=== PATIENT | female | born 1945 | race Caucasian/White ===

== ENCOUNTER → 2018-08-16 | Outpatient (CLI) | payer MEDICARE ==
--- NOTE | 2018-08-16 16:15 | US ---
EXAMINATION TYPE: US kidneys/renal and bladder DATE OF EXAM: 08/16/2018 COMPARISON: NONE CLINICAL HISTORY: N28.9 Renal insufficiency. Abnormal labs EXAM MEASUREMENTS: Right Kidney: 11.5 x 5.2 x 5.0 cm Left Kidney: 11.1 x 6.3 x 4.9 cm Right Kidney: Appeared wnl Left Kidney: Multicystic with largest simple appearing cyst lower pole= 2.1 x 1.8 x 1.4 cm Bladder: wnl Bilateral Jets seen: Yes Incidental finding several small mobile shadowing gallstones on initial images There is no evidence for hydronephrosis at this point in time. No nephrolithiasis is seen. No jas s are identified. The urinary bladder is slightly lobulated. Bilateral ureteral jets are seen. IMPRESSION: No hydronephrosis is evident bilaterally.
== END | disposition home or self-care (01) ==
LOC: RADUSWWP 15:28
PROVIDERS: ATTEND Family Medicine
DX: N28.9 Disorder of kidney and ureter, unspecified (principal)
CPT/HCPCS: 76770

== ENCOUNTER 2019-12-31 20:14 | Inpatient (IN) | payer MEDICARE, OTHER ==
[2019-12-31] MEDS ORDERED: HYDROmorphone 1 MG/ML 1 ML SYRINGE IVP STA ×3 (20:21→21:31)
--- NOTE | 2019-12-31 20:21 | ED ---
Extremity Problem HPI - General Stated complaint: Fall, Hip Pain Time Seen by Provider: 12/31/19 20:15 Source: RN notes reviewed, old records reviewed - History of Present Illness Initial comments: This is a 74-year-old female presented by EMS for severe right lower Shorty pain. Patient popping snapping sound on her right side will moving a chair. Patient states she is unable to move after that event. Unable to move that ri ght lower extremity right leg. Patient's been by EMS he [place] give pain control patient still having severe right lower Shorty pain but no other injuries noted. Patient is on blood thinners. No history of orthopedic surgery or fracture MD Complaint: extremity pain (Right lower extremity) -: minutes(s) Location: right, lower extremity History of Same: No Radiation: proximal Severity scale (1-10): 10 Quality: sharp, constant Consistency: constant Improves with: nothing Worsens with: nothing Associated Symptoms: denies other symptoms - Related Data Home Medications Medication Instructions Recorded Confirmed Allopurinol [Zyloprim] 100 mg PO DAILY 12/31/19 12/31/19 Atenolol 200 mg PO DAILY 12/31/19 12/31/19 Ergocalciferol [Vitamin D2] 50,000 unit PO Q7D 12/31/19 12/31/19 HYDROcodone/APAP 5-325MG [[place] 1 tab PO Q8H 12/31/19 12/31/19 5-325] Lisinopril [Prinivil] 20 mg PO DAILY 12/31/19 12/31/19 glipiZIDE XL [Glucotrol Xl] 5 mg PO DAILY 12/31/19 12/31/19 predniSONE 10 mg PO DAILY 12/31/19 12/31/19 Allergies Allergy/AdvReac Type Severity Reaction Status Date / Time latex Allergy Rash/Hives Verified 12/31/19 21:57 Penicillins Allergy Rash/Hives Verified 12/31/19 21:57 warfarin [From Coumadin] Allergy Rash/Hives Verified 12/31/19 21:57 Review of Systems ROS Statement: Those systems with pertinent positive or pertinent negative responses have been documented in the HPI. ROS Other: All systems not noted in ROS Statement are negative. Past Medical History - Past Family History Brother(s) Family Medical History: Cancer Additional Family Medical History / Comment(s): 3x brother from cancer (2x brother esophageal cancer) Father Family Medical History: Myocardial Infarction ([place]) Additional Family Medical History / Comment(s): alcoholism General Exam - General Exam Comments Initial Comments: Significant deformity right lower extremity General appearance: alert, in no apparent distress Head exam: Present: atraumatic, normocephalic, normal inspection Eye exam: Present: normal appearance, PERRL, EOMI. Absent: scleral icterus, conjunctival injection, periorbital swelling ENT exam: Present: normal exam, mucous membranes moist Neck exam: Present: normal inspection. Absent: tenderness, meningismus, lymphadenopathy Respiratory exam: Present: normal lung sounds bilaterally. Absent: respiratory distress, wheezes, rales, rhonchi, stridor Cardiovascular Exam: Present: regular rate, normal rhythm, normal heart sounds. Absent: systolic murmur, diastolic murmur, rubs, gallop, clicks GI/Abdominal exam: Present: soft, normal bowel sounds. Absent: distended, tenderness, guarding, rebound, rigid Extremities exam: Present: normal inspection, full ROM, normal capillary refill. Absent: tenderness, pedal edema, joint swelling, calf tenderness Back exam: Present: normal inspection Neurological exam: Present: alert, oriented X3, CN II-XII intact Psychiatric exam: Present: normal affect, normal mood Skin exam: Present: warm, dry, intact, normal color. Absent: rash Course Vital Signs 12/31/19 12/31/19 12/31/19 20:16 21:52 22:31 Temperature 98 F Pulse Rate 66 53 L 56 L Respiratory 20 16 16 Rate Blood Pressure 219/90 206/88 239/90 O2 Sat by Pulse 98 100 100 Oximetry 12/31/19 22:42 Temperature Pulse Rate 64 Respiratory 16 Rate Blood Pressure 157/64 O2 Sat by Pulse 98 Oximetry - Reevaluation(s) Reevaluation #1: Medical record is reviewed Patient currently is adequate pain control - Consultations Consultation #1: Spoke with (Orthopedics okay for admission Procedures - Orthopedic Fracture Reduction Fracture #1 Consent Obtained: verbal consent Side: right Fracture Reduction Location: femur Technique: direct manipulation, traction/counter-traction Post-Reduction Neuro Exam: intact Post-Reduction Vascular Exam: intact Splint Applied: Yes Patient Tolerated Procedure: well Medical Decision Making - Medical Decision Making 74 female DF for evaluation of fall fall with hip fracture fracture splinted here in the ER good pulses, patient to be admitted for orthopedic evaluation and management - Lab Data Result diagrams: 01/01/20 10:34 01/01/20 10:34 Lab Results 12/31/19 12/31/19 12/31/19 Range/Units 21:52 21:52 21:52 WBC 14.5 H (3.8-10.6) k/uL RBC 5.12 (3.80-5.40) m/uL Hgb 12.0 (11.4-16.0) gm/dL Hct 39.8 (34.0-46.0) % MCV 77.7 L (80.0-100.0) fL MCH 23.5 L (25.0-35.0) pg MCHC 30.3 L (31.0-37.0) g/dL RDW 15.9 H (11.5-15.5) % Plt Count 353 (150-450) k/uL Neutrophils % 83 % Lymphocytes % 9 % Monocytes % 6 % Eosinophils % 1 % Basophils % 0 % Neutrophils # 12.0 H (1.3-7.7) k/uL Lymphocytes # 1.2 (1.0-4.8) k/uL Monocytes # 0.9 (0-1.0) k/uL Eosinophils # 0.1 (0-0.7) k/uL Basophils # 0.1 (0-0.2) k/uL Hypochromasia Moderate Microcytosis Slight PT 10.8 (9.0-12.0) sec INR 1.0 (<1.2) APTT 22.6 (22.0-30.0) sec Sodium 136 L (137-145) mmol/L Potassium 4.1 (3.5-5.1) mmol/L Chloride 100 (98-107) mmol/L Carbon Dioxide 27 (22-30) mmol/L Anion Gap 9 mmol/L BUN 17 (7-17) mg/dL Creatinine 0.68 (0.52-1.04) mg/dL Est GFR (CKD-EPI)AfAm >90 (>60 ml/min/1.73 sqM) Est GFR (CKD-EPI)NonAf 88 (>60 ml/min/1.73 sqM) Glucose 181 H (74-99) mg/dL Calcium 8.9 (8.4-10.2) mg/dL Phosphorus 4.5 (2.5-4.5) mg/dL Magnesium 1.5 L (1.6-2.3) mg/dL Total Bilirubin 0.5 (0.2-1.3) mg/dL AST 36 (14-36) U/L ALT 19 (4-34) U/L Alkaline Phosphatase 102 (38-126) U/L Troponin I (0.000-0.034) ng/mL Total Protein 6.2 L (6.3-8.2) g/dL Albumin 3.6 (3.5-5.0) g/dL 12/31/19 Range/Units 21:52 WBC (3.8-10.6) k/uL RBC (3.80-5.40) m/uL Hgb (11.4-16.0) gm/dL Hct (34.0-46.0) % MCV (80.0-100.0) fL MCH (25.0-35.0) pg MCHC (31.0-37.0) g/dL RDW (11.5-15.5) % Plt Count (150-450) k/uL Neutrophils % % Lymphocytes % % Monocytes % % Eosinophils % % Basophils % % Neutrophils # (1.3-7.7) k/uL Lymphocytes # (1.0-4.8) k/uL Monocytes # (0-1.0) k/uL Eosinophils # (0-0.7) k/uL Basophils # (0-0.2) k/uL Hypochromasia Microcytosis PT (9.0-12.0) sec INR (<1.2) APTT (22.0-30.0) sec Sodium (137-145) mmol/L Potassium (3.5-5.1) mmol/L Chloride (98-107) mmol/L Carbon Dioxide (22-30) mmol/L Anion Gap mmol/L BUN (7-17) mg/dL Creatinine (0.52-1.04) mg/dL Est GFR (CKD-EPI)AfAm (>60 ml/min/1.73 sqM) Est GFR (CKD-EPI)NonAf (>60 ml/min/1.73 sqM) Glucose (74-99) mg/dL Calcium (8.4-10.2) mg/dL Phosphorus (2.5-4.5) mg/dL Magnesium (1.6-2.3) mg/dL Total Bilirubin (0.2-1.3) mg/dL AST (14-36) U/L ALT (4-34) U/L Alkaline Phosphatase (38-126) U/L Troponin I 0.043 H* (0.000-0.034) ng/mL Total Protein (6.3-8.2) g/dL Albumin (3.5-5.0) g/dL - EKG Data -: EKG Interpreted by Me (EKG shows sinus rhythm of 60, VA 152, QRS 90, QTc 440) - Radiology Data Radiology results: report reviewed (Chest x-ray is negative x-rays right hip is positive for femoral fracture), image reviewed Disposition Clinical Impression: Fracture of hip, Right femoral fracture, Fall Disposition: ADMITTED IP TO THIS [facility] Condition: Good Is patient prescribed a controlled substance at d/c from ED?: No
[2019-12-31] MEDS ORDERED: ONDANSETRON 4 MG/2 ML VIAL IVP STA (20:30)
--- NOTE | 2019-12-31 20:54 | XR ---
EXAMINATION TYPE: XR Hip RT and AP Pelvis DATE OF EXAM: 12/31/2019 COMPARISON: NONE HISTORY: Hip pain TECHNIQUE: 3 views FINDINGS: There is acute subtrochanteric fracture of the right femur with angulation 45 degrees. Ther e is no dislocation. The acetabula appear intact. Pelvic ring is intact. IMPRESSION: Acute subtrochanteric fracture right femur.
--- NOTE | 2019-12-31 20:55 | XR ---
EXAMINATION TYPE: XR chest 1V DATE OF EXAM: 12/31/2019 COMPARISON: NONE HISTORY: Preop TECHNIQUE: Single view FINDINGS: Heart appears enlarged. There is coarsening of the interstitial lung markings. There are bi lateral nodular densities over the lower lung castañeda. Thoracic aorta is atheromatous. There is no ple ural effusion. IMPRESSION: Cardiomegaly. No obvious heart failure. Mild nodular interstitial pulmonary infiltrates a re nonspecific.
[2019-12-31] MEDS ORDERED: SODIUM CHLORIDE 0.9% 1,000 ML IV STA ×2 (21:37)
[2019-12-31 22:10] LABS: Basophils # (A) 0.1 k/uL (0-0.2); Basophils % (A) 0 %; Eosinophils # (A) 0.1 k/uL (0-0.7); Eosinophils % (A) 1 %; HCT 39.8 % (34.0-46.0); Hypochromasia Moderate; Lymphocytes # (A) 1.2 k/uL (1.0-4.8); Lymphocytes % (A) 9 %; MCH 23.5 pg (25.0-35.0); MCHC 30.3 g/dL (31.0-37.0); MCV 77.7 fL (80.0-100.0); Mean Platelet Volume 7.7; Microcytosis Slight; Monocytes # (A) 0.9 k/uL (0-1.0); Monocytes % (A) 6 %; Neutrophils % (A) 83 %; Platelet Count 353 k/uL (150-450); RBC 5.12 m/uL (3.80-5.40); RDW 15.9 % (11.5-15.5); WBC 14.5 k/uL (3.8-10.6)
[2019-12-31 22:11] LABS: Partial Thromboplastin Time 22.6 sec (22.0-30.0); Prothrombin Time 10.8 sec (9.0-12.0)
[2019-12-31 22:18] LABS: ALT 19 U/L (4-34); AST 36 U/L (14-36); African American GFR (CKD) >90 (>60 ml/min/1.73 sqM); Albumin 3.6 g/dL (3.5-5.0); Alkaline Phosphatase 102 U/L (38-126); Anion Gap 9 mmol/L; Blood Urea Nitrogen 17 mg/dL (7-17); Calcium 8.9 mg/dL (8.4-10.2); Carbon Dioxide 27 mmol/L (22-30); Chloride 100 mmol/L (98-107); Glucose 181 mg/dL (74-99); Magnesium 1.5 mg/dL (1.6-2.3); Non-African American GFR(CKD) 88 (>60 ml/min/1.73 sqM); Phosphorus 4.5 mg/dL (2.5-4.5); Potassium 4.1 mmol/L (3.5-5.1); Sodium 136 mmol/L (137-145); Total Bilirubin 0.5 mg/dL (0.2-1.3); Total Protein 6.2 g/dL (6.3-8.2)
[2019-12-31] MEDS ORDERED: LABETALOL 5 MG/ML VIAL MDV IVP STA (22:20)
[2019-12-31] MEDS ORDERED: SODIUM CHLORIDE 0.9% 1,000 ML IV ONE (22:20)
[2019-12-31] MEDS ORDERED: LORazepam 2 MG/ML INJ IV STA (22:23)
[2019-12-31] MEDS ORDERED: PROMETHAZINE INJ 25 MG in SODIUM CHLORIDE 0.9% 50 ML IVPB PRN (22:24)
[2020-01-01] MEDS: METOPROLOL TARTRATE 50 MG TAB PO SCH ×4 (00:45→21:51)
[2020-01-01] MEDS: LISINOPRIL-HCTZ 10-12.5 MG 1 EACH TAB PO SCH ×3 (00:59→20:10)
[2020-01-01] MEDS: HYDROmorphone 1 MG/ML 1 ML SYRINGE IVP PRN ×5 (02:41→20:04)
--- NOTE | 2020-01-01 09:09 | P.HPOR ---
History of Present Illness H&P Date: 01/01/20 Chief Complaint: Right leg pain This is a 74-year-old female who presented to the emergency department yesterday after falling into a chair and twisting her leg. She states that she was quite dizzy yesterday after taking her atenolol. She states that her medication made her dizzy. She sat down into a chair when she became dizzy and states that she twisted her leg, feeling a pop in her thigh. She was unable to ambulate after the incident. She called the daughter who called EMS. On exam and x-ray in the emergency department she is found to have a subtrochanteric fracture of the right femur. She is admitted to our service for surgical intervention and care. Review of Systems Lightheaded, dizziness Gastrointestinal: Reports nausea, Reports vomiting Past Medical History Past Medical History: Diabetes Mellitus, Hypertension, Rheumatoid Arthritis ([place]) Additional Past Medical History / Comment(s): pre diabetes, recently has had episodes of dizziness and fuzzy vision, 2012 had septic shock r/t bladder/kidney infection, varicose veins History of Any Multi-Drug Resistant Organisms: None Reported Past Surgical History: Appendectomy Past Anesthesia/Blood Transfusion Reactions: No Reported Reaction Past Psychological History: No Psychological Hx Reported Smoking Status: Former smoker Past Alcohol Use History: None Reported Past Drug Use History: None Reported - Past Family History Brother(s) Family Medical History: Cancer Additional Family Medical History / Comment(s): 3x brother from cancer (2x brother esophageal cancer) Father Family Medical History: Myocardial Infarction ([place]) Additional Family Medical History / Comment(s): alcoholism Medications and Allergies Home Medications Medication Instructions Recorded Confirmed Type Allopurinol [Zyloprim] 100 mg PO DAILY 12/31/19 12/31/19 History Atenolol 200 mg PO DAILY 12/31/19 12/31/19 History Ergocalciferol [Vitamin D2] 50,000 unit PO Q7D 12/31/19 12/31/19 History HYDROcodone/APAP 5-325MG [[place] 1 tab PO Q8H 12/31/19 12/31/19 History 5-325] Lisinopril [Prinivil] 20 mg PO DAILY 12/31/19 12/31/19 History glipiZIDE XL [Glucotrol Xl] 5 mg PO DAILY 12/31/19 12/31/19 History predniSONE 10 mg PO DAILY 12/31/19 12/31/19 History Allergies Allergy/AdvReac Type Severity Reaction Status Date / Time latex Allergy Rash/Hives Verified 12/31/19 21:57 Penicillins Allergy Rash/Hives Verified 12/31/19 21:57 warfarin [From Coumadin] Allergy Rash/Hives Verified 12/31/19 21:57 Physical Examination This is a 74-year-old female in no acute distress. She is alert and oriented at this time. Exam of the head neck reveal no obvious deformity. She has fairly good cervical spine motion without difficulty or pain. Exam the upper extr emities is unremarkable. She has normal motion to her upper extremities without pain. Exam of the lower extremities reveals a knee immobilizer in place to the right leg. She has full foot and ankle motion. Pedal pulse is +2/4. Neurovascular status to the lower extremities intact. Results X-rays of the right hip and femur reveal a displaced long oblique fracture to the subtrochanteric region of the right femur. No other fractures identified. - Labs Labs: Abnormal Lab Results - Last 24 Hours (Table) 12/31/19 12/31/19 12/31/19 Range/Units 21:52 21:52 21:52 WBC 14.5 H (3.8-10.6) k/uL MCV 77.7 L (80.0-100.0) fL MCH 23.5 L (25.0-35.0) pg MCHC 30.3 L (31.0-37.0) g/dL RDW 15.9 H (11.5-15.5) % Neutrophils # 12.0 H (1.3-7.7) k/uL Sodium 136 L (137-145) mmol/L Glucose 181 H (74-99) mg/dL Magnesium 1.5 L (1.6-2.3) mg/dL Troponin I 0.043 H* (0.000-0.034) ng/mL Total Protein 6.2 L (6.3-8.2) g/dL H & H 12/31/19 Range/Units 21:52 Hgb 12.0 (11.4-16.0) gm/dL Hct 39.8 (34.0-46.0) % Coagulation 12/31/19 Range/Units 21:52 INR 1.0 (<1.2) Result Diagrams: 12/31/19 21:52 12/31/19 21:52 Assessment and Plan (1) Subtrochanteric fracture of right femur Current Visit: Yes Status: Acute Code(s): S72.21XA - DISPLACED SUBT ROCHANTERIC FRACTURE OF RIGHT FEMUR, INIT SNOMED Code(s): 424413903 (2) Fracture of hip Current Visit: Yes Status: Acute Code(s): S72.009A - FRACTURE OF UNSP PART OF NECK OF UNSP FEMUR, INIT SNOMED Code(s): 211276068 (3) Right femoral fracture Current Visit: Yes Status: Acute Code(s): S72.91XA - UNSP FRACTURE OF RIGHT FEMUR, INIT FOR CLOS FX SNOMED Code(s): 34348449 (4) Dizziness, nonspecific Current Visit: Yes Status: Acute Code(s): R42 - DIZZINESS AND GIDDINESS SNOMED Code(s): 227654227 Plan: The clinical and x-ray findings are discussed with the patient. It is recommended she undergo closed reduction with insertion of long intertrochanteric nail of the right femur. The procedures discussed with the patient detail. After discussion and consideration the patient elects to proceed with surgery. We are awaiting presurgical clearance by internal medicine. We're planning surgery for tomorrow if cleared medically. Patient may possibly need inpatient rehab postoperatively.
[2020-01-01 10:51] LABS: Basophils % (A) 0 %; Eosinophils % (A) 0 %; HCT 36.1 % (34.0-46.0); HGB 10.5 gm/dL (11.4-16.0); Hypochromasia Marked; Lymphocytes # (A) 1.3 k/uL (1.0-4.8); Lymphocytes % (A) 10 %; MCH 23.2 pg (25.0-35.0); MCHC 29.1 g/dL (31.0-37.0); MCV 79.6 fL (80.0-100.0); Mean Platelet Volume 7.3; Monocytes # (A) 0.7 k/uL (0-1.0); Monocytes % (A) 5 %; Neutrophils # (A) 10.9 k/uL (1.3-7.7); Neutrophils % (A) 83 %; Platelet Count 325 k/uL (150-450); RBC 4.54 m/uL (3.80-5.40); RDW 15.3 % (11.5-15.5); WBC 13.1 k/uL (3.8-10.6)
[2020-01-01] MEDS: cloNIDine 0.1 MG/24HR PATCH TRANSDERM SCH (10:59)
[2020-01-01 11:04] LABS: ALT 19 U/L (4-34); AST 35 U/L (14-36); African American GFR (CKD) >90 (>60 ml/min/1.73 sqM); Albumin 3.6 g/dL (3.5-5.0); Alkaline Phosphatase 87 U/L (38-126); Anion Gap 8 mmol/L; Blood Urea Nitrogen 16 mg/dL (7-17); Calcium 9.4 mg/dL (8.4-10.2); Carbon Dioxide 31 mmol/L (22-30); Chloride 97 mmol/L (98-107); Glucose 180 mg/dL (74-99); Non-African American GFR(CKD) 87 (>60 ml/min/1.73 sqM); Potassium 4.6 mmol/L (3.5-5.1); Sodium 136 mmol/L (137-145); Total Bilirubin 0.4 mg/dL (0.2-1.3); Total Protein 6.3 g/dL (6.3-8.2)
[2020-01-01] MEDS: ASPIRIN 300 MG SUPP RECTAL STA ×2 (11:27→11:29)
[2020-01-01] MEDS ORDERED: POTAS-SOD-PHOS 278-164-250 MG 1 EACH PACKET PO SCH (16:00)
--- NOTE | 2020-01-01 16:02 | P.CONS ---
History of Present Illness - Reason for Consult Consult date: 01/01/20 Medical management Requesting physician: Phuc Gillette - Chief Complaint Right hip fracture - History of Present Illness History of presenting complaint: This is a 74-year-old patient of Dr. bosch. Chronic stable medical conditions include diabetes, hypertension, rheumatoid arthritis, varicose veins. For last few days patient is joints have been bothering her and affect in different joints including the hips and knees. Patient has been dizzy for about a week. Decreased appetite. For 3 days been having nausea vomiting. She was working on the computer was getting off the chair lost her balance fell down. Injuring her right hip. As a right hip fracture. Denies any chest pain no palpitation. Unable to take her medications and she came in her blood pressures running high over 200 systolic. Her some troponin leak. Very subtle EKG changes. 2-D echo and cardiology consultation was ordered this morning. No abdominal pain. No diarrhea Review of systems: GEN.: Tired EYES: None HEENT: None NECK: None RESPIRATORY: None CARDIOVASCULAR: None GASTROINTESTINAL: As above GENITOURINARY: None MUSCULOSKELETAL: Joint pains LYMPHATICS: None HEMATOLOGICAL: None PSYCHIATRY: None NEUROLOGICAL: None, no focal Past medical history to include: Diabetes, hypertension, rheumatoid arthritis, varicose veins. Social history: Lives alone. Smoked a pack a day for 35 years, stopped in 1992. No alcohol. Physical examination: VITAL SIGNS: 98, 56, 16, 229/90, 100% on 2 L-upon presentation GENERAL: BMI 30.3, laying in bed, tired appearing. EYES: Pupils equal. Conjunctiva normal. HEENT: External appearance of nose and ears normal, oral cavity grossly normal. NECK: JVD not raised; masses not palpable. HEART: First and second heart sounds are normal; no edema. LUNGS: Respiratory rate normal; slightly decreased breath sound. ABDOMEN: Soft, nontender, liver spleen not palpable, no masses palpable. PSYCH: Alert and oriented x3; mood and affect normal. MUSCULOSKELETAL: Evidence of OA in the hands, limited range of motion of the right hip NEUROLOGICAL: Cranial nerves grossly intact; no facial asymmetry, power and sensation grossly intact. LYMPHATICS: No lymph nodes palpable in the axilla and neck INVESTIGATIONS, reviewed in the clinical context: White count 14.5 hemoglobin 12 repeat 10.5 today to see 53 potassium 4.1 creatinine 0.68 Troponin I 0.043, 0.048 EKG tracing personally reviewed by me-Q waves in inferior leads Chest x-ray film-questionable infiltrate versus interstitial lung finding. Right hip x-ray-acute subtrochanteric right femur fracture Assessment: -Acute subtrochanteric right femur fracture secondary to fall -Rheumatoid arthritis, chronic -Obesity BMI 30.3 -Patient for about a week has been feeling dizzy some nausea vomiting decreased appetite and has some troponin leak. Q waves in inferior leads. A silent GA is in the differential. Will need to look at the 2-D echocardiogram to check for any wall motion abnormality. -Hypertensive urgency -Diabetes mellitus type 2 on oral hypoglycemic Plan: Patient was orally not able to tolerate oral medications. Blood pressures still running high. Hence out of the Catapres patch. Also ordered a rectal aspirin. Cardiology was consulted. 2-D echocardiogram ordered. Cardiology not to determine if this is an acute GA or troponin leak from hemodynamic mismatch from nausea vomiting. We'll also order a CT scan of the brain to make sure we are not dealing with central cause for her dizziness. Also add Lovenox for DVT prophylaxis. Accu-Cheks will be followed Thank you Dr. Gillette Past Medical History Past Medical History: Diabetes Mellitus, Hypertension, Rheumatoid Arthritis (RA) Additional Past Medical History / Comment(s): pre diabetes, recently has had episodes of dizziness and fuzzy vision, 2012 had septic shock r/t bladder/kidney infection, varicose veins History of Any Multi-Drug Resistant Organisms: None Reported Past Surgical History: Appendectomy Past Anesthesia/Blood Transfusion Reactions: No Reported Reaction Past Psychological History: No Psychological Hx Reported Smoking Status: Former smoker Past Alcohol Use History: None Reported Past Drug Use History: None Reported - Past Family History Brother(s) Family Medical History: Cancer Additional Family Medical History / Comment(s): 3x brother from cancer (2x brother esophageal cancer) Father Family Medical History: Myocardial Infarction ([place]) Additional Family Medical History / Comment(s): alcoholism Medications and Allergies Home Medications Medication Instructions Recorded Confirmed Type Allopurinol [Zyloprim] 100 mg PO DAILY 12/31/19 12/31/19 History Atenolol 200 mg PO DAILY 12/31/19 12/31/19 History Ergocalciferol [Vitamin D2] 50,000 unit PO Q7D 12/31/19 12/31/19 History HYDROcodone/APAP 5-325MG [[place] 1 tab PO Q8H 12/31/19 12/31/19 History 5-325] Lisinopril [Prinivil] 20 mg PO DAILY 12/31/19 12/31/19 History glipiZIDE XL [Glucotrol Xl] 5 mg PO DAILY 12/31/19 12/31/19 History predniSONE 10 mg PO DAILY 12/31/19 12/31/19 History Allergies Allergy/AdvReac Type Severity Reaction Status Date / Time latex Allergy Rash/Hives Verified 12/31/19 21:57 Penicillins Allergy Rash/Hives Verified 12/31/19 21:57 warfarin [From Coumadin] Allergy Rash/Hives Verified 12/31/19 21:57 Physical Exam Vitals: Vital Signs Temp Pulse Pulse Resp BP BP Pulse Ox 01/01/20 07:00 98.4 F 66 16 184/68 97 01/01/20 03:55 178/73 01/01/20 03:25 66 174/79 94 L 01/01/20 03:10 58 L 177/77 99 01/01/20 02:55 60 174/76 98 01/01/20 01:55 63 175/70 01/01/20 01:26 60 166/65 99 01/01/20 00:55 70 179/72 95 01/01/20 00:21 197/76 01/01/20 00:10 207/71 01/01/20 00:05 187/70 12/31/19 23:55 196/67 12/31/19 23:40 188/68 12/31/19 23:39 190/72 12/31/19 23:38 192/74 12/31/19 23:26 97.5 F L 63 205/97 100 12/31/19 22:42 64 16 157/64 98 12/31/19 22:31 98 F 56 L 16 239/90 100 12/31/19 21:52 53 L 16 206/88 100 12/31/19 20:16 66 20 219/90 98 Intake and Output 12/31/19 01/01/20 01/01/20 22:59 06:59 14:59 Output Total 500 Balance -500 Output: Urine 500 Other: Voiding Method Indwelling Catheter Weight 85.275 kg 85.275 kg Results CBC & Chem 7: 01/01/20 10:34 01/01/20 10:34 Labs: Abnormal Lab Results - Last 24 Hours (Table) 12/31/19 12/31/19 12/31/19 Range/Units 21:52 21:52 21:52 WBC 14.5 H (3.8-10.6) k/uL MCV 77.7 L (80.0-100.0) fL MCH 23.5 L (25.0-35.0) pg MCHC 30.3 L (31.0-37.0) g/dL RDW 15.9 H (11.5-15.5) % Neutrophils # 12.0 H (1.3-7.7) k/uL Sodium 136 L (137-145) mmol/L Glucose 181 H (74-99) mg/dL Magnesium 1.5 L (1.6-2.3) mg/dL Troponin I 0.043 H* (0.000-0.034) ng/mL Total Protein 6.2 L (6.3-8.2) g/dL
[2020-01-01] MEDS: ENOXAPARIN 40 MG/0.4 ML SYRINGE SQ SCH (16:14)
--- NOTE | 2020-01-01 17:00 | ECHOF ---
Referral Reason:Abnormal EKG, trops and Hypertensive MEASUREMENTS -------- HEIGHT: 167.6 cm WEIGHT: 85.3 kg BP: 184/68 IVSd: 1.6 cm (0.6 - 1.1) LVIDd: 3.6 cm (3.9 - 5.3) LVPWd: 1.6 cm (0.6 - 1.1) IVSs: 2.0 cm LVIDs: 2.5 cm LVPWs: 2.4 cm LA Diam: 4.0 cm (2.7 - 3.8) RVIDd: 3.7 cm (< 3.3) LAESV Index (A-L): 45.96 ml/m Ao Diam: 3.6 cm (2.0 - 3.7) AV Cusp: 2.5 cm (1.5 - 2.6) MV E Emmett: 0.58 m/s MV DecT: 289 ms MV A Emmett: 0.94 m/s MV E/A Ratio: 0.62 FINDINGS -------- Sinus rhythm. This was a technically adequate study. The left ventricular size is normal. There is moderate concentric left ventricular hypertrophy. O verall left ventricular systolic function is normal with, an EF between 60 - 65 %. The right ventricle is mild to moderately enlarged. LA is severely dilated >40 ml/m2 The right atrium is normal in size. Interatrial and interventricular septum intact. There is mild aortic valve sclerosis. The mitral valve leaflets are mildly thickened. Mild mitral annular calcification present. There is trace to mild mitral regurgitation. The tricuspid valve appears structurally normal. Moderate pulmonic regurgitation. The aortic root size is normal. Normal inferior vena cava with normal inspiratory collapse consistent with estimated right atrial pre ssure of 5 mmHg. CONCLUSIONS -------- 1. Sinus rhythm. 2. This was a technically adequate study. 3. The left ventricular size is normal. 4. There is moderate concentric left ventricular hypertrophy. 5. Overall left ventricular systolic function is normal with, an EF between 60 - 65 %. 6. The right ventricle is mild to moderately enlarged. 7. The right atrium is normal in size. 8. Interatrial and interventricular septum intact. 9. There is mild aortic valve sclerosis. 10. The mitral valve leaflets are mildly thickened. 11. Mild mitral annular calcification present. 12. There is trace to mild mitral regurgitation. 13. The tricuspid valve appears structurally normal. 14. Moderate pulmonic regurgitation. 15. The aortic root size is normal. 16. Normal inferior vena cava with normal inspiratory collapse consistent with estimated right atrial pressure of 5 mmHg. [employer] TENDER: ALEXANDER Ferrer
[2020-01-01] MEDS: POTAS-SOD-PHOS 278-164-250 MG 1 EACH PACKET PO SCH (21:52)
[2020-01-02] MEDS: HYDROmorphone 1 MG/ML 1 ML SYRINGE IVP PRN ×4 (00:12→23:27)
[2020-01-02 06:50] LABS: Glucose,Whole Blood 145 mg/dL (75-99)
--- NOTE | 2020-01-02 07:35 | P.CRDCN ---
History of Present Illness History of present illness: HISTORY OF PRESENTING ILLNESS This is a pleasant 74-year-old female past medical history significant for hypertension, diabetes mellitus, rheumatoid arthritis, former nicotine depe ndence and obesity. She denies prior history of coronary artery disease and does not follow in the office with a private watchman for any reason. We have been asked to see in consultation for preoperative evaluation. Was seen and examined resting comfortably laying flat in bed in no acute distress. Her daughter is at the bedside. The patient states yesterday she was attempting to sit down in her chair and she twisted and lost her footing hitting her right hip on the arm of the chair. She denies loss of consciousness. In the previous few weeks she states she has felt dizzy like the room has been spinning intermittently. Not associated with chest pain, shortness of breath, diaphoresis, palpitations or nausea. She states she has had vertigo in the past however this dizziness has felt different. Echocardiogram revealed preserved LV systolic function with no wall motion abnormalities. DIAGNOSTICS EKG reveals sinus mechanism, inferior Q wave and poor R-wave progression. Chest xray no obvious heart failure, mild nodular interstitial pulmonary infiltrates that are nonspecific. Laboratory reviewed, CBC on admission 14.5 repeat today 13.1, hemoglobin 10.5, platelets 325, sodium 136, potassium 4.6, creatinine 0.7, magnesium 1.5, cardiac enzymes 0.043 and 0.048. Current cardiac medications include atenolol 200 mg daily and lisinopril 20 mg daily. REVIEW OF SYSTEMS At the time of my exam: CONSTITUTIONAL: Denies fever or chills. CARDIOVASCULAR: Denies chest pain, shortness of breath, orthopnea, PND or palpitations. RESPIRATORY: Denies cough. GASTROINTESTINAL: Denies abdominal pain, diarrhea, constipation, nausea or vomiting. MUSCULOSKELETAL: Denies myalgias. NEUROLOGIC: Denies numbness, tingling or weakness. ENDOCRINE: Denies fatigue, weight change, polydipsia or polyurina. GENITOURINARY: Denies burning, hematuria or urgency with micturation. HEMATOLOGIC: Denies history of anemia or bleeding. PHYSICAL EXAMINATION Blood pressure heart rate 185/68 afebrile and maintaining oxygen saturation on 65. CONSTITUTIONAL: No apparent distress. HEENT: Head is normocephalic. Pupils are equal, round. Sclerae anicteric. Mucous membranes of the mouth are moist. No JVD. No carotid bruit. CHEST EXAMINATION: Lungs are clear to auscultation. No chest wall tenderness is noted on palpation or with deep breathing. HEART EXAMINATION: Regular rate and rhythm. S1, S2 heard. No murmurs, gallops or rub. ABDOMEN: Soft, nontender. Positive bowel sounds. EXTREMITIES: 2+ peripheral pulses, no lower extremity edema and no calf tenderness. NEUROLOGIC EXAMINATION: Patient is awake, alert and oriented x3. ASSESSMENT Left intertrochanteric femur fracture Mildly elevated troponin with no rise and fall pattern, no symptoms of angina. No indicative of an acute coronary syndrome. Dizziness, telemetry tracings have been unremarkable Hypertension Diabetes mellitus PLAN Clinically she is euvolemic with no signs of heart failure or angina. No absolute contraindications to undergo surgical intervention. Thank you kindly for this consultation. Nurse Practitioner note has been reviewed, I agree with a documented findings and plan of care. Patient was seen and examined. Past Medical History Past Medical History: Diabetes Mellitus, Hypertension, Rheumatoid Arthritis (RA) Additional Past Medical History / Comment(s): pre diabetes, recently has had episodes of dizziness and fuzzy vision, 2012 had septic shock r/t bladder/kidney infection, varicose veins History of Any Multi-Drug Resistant Organisms: None Reported Past Surgical History: Appendectomy Past Anesthesia/Blood Transfusion Reactions: No Reported Reaction Past Psychological History: No Psychological Hx Reported Smoking Status: Former smoker Past Alcohol Use History: None Reported Past Drug Use History: None Reported - Past Family History Brother(s) Family Medical History: Cancer Additional Family Medical History / Comment(s): 3x brother from cancer (2x brother esophageal cancer) Father Family Medical History: Myocardial Infarction ([place]) Additional Family Medical History / Comment(s): alcoholism Medications and Allergies Home Medications Medication Instructions Recorded Confirmed Type Allopurinol [Zyloprim] 100 mg PO DAILY 12/31/19 12/31/19 History Atenolol 200 mg PO DAILY 12/31/19 12/31/19 History Ergocalciferol [Vitamin D2] 50,000 unit PO Q7D 12/31/19 12/31/19 History HYDROcodone/APAP 5-325MG [[place] 1 tab PO Q8H 12/31/19 12/31/19 History 5-325] Lisinopril [Prinivil] 20 mg PO DAILY 12/31/19 12/31/19 History glipiZIDE XL [Glucotrol Xl] 5 mg PO DAILY 12/31/19 12/31/19 History predniSONE 10 mg PO DAILY 12/31/19 12/31/19 History Allergies Allergy/AdvReac Type Severity Reaction Status Date / Time latex Allergy Rash/Hives Verified 12/31/19 21:57 Penicillins Allergy Rash/Hives Verified 12/31/19 21:57 warfarin [From Coumadin] Allergy Rash/Hives Verified 12/31/19 21:57 Physical Exam Vitals: Vital Signs Temp Pulse Pulse Pulse Resp BP BP 01/01/20 11:30 65 185/68 01/01/20 08:00 66 16 01/01/20 07:00 98.4 F 66 16 184/68 01/01/20 03:55 178/73 01/01/20 03:25 66 174/79 01/01/20 03:10 58 L 177/77 01/01/20 02:55 60 174/76 01/01/20 01:55 63 175/70 01/01/20 01:26 60 166/65 01/01/20 00:55 70 179/72 01/01/20 00:21 197/76 01/01/20 00:10 207/71 01/01/20 00:05 187/70 12/31/19 23:55 196/67 12/31/19 23:40 188/68 12/31/19 23:39 190/72 12/31/19 23:38 192/74 12/31/19 23:26 97.5 F L 63 205/97 12/31/19 22:42 64 16 157/64 12/31/19 22:31 98 F 56 L 16 239/90 12/31/19 21:52 53 L 16 206/88 12/31/19 20:16 66 20 219/90 Pulse Ox 01/01/20 11:30 01/01/20 08:00 01/01/20 07:00 97 01/01/20 03:55 01/01/20 03:25 94 L 01/01/20 03:10 99 01/01/20 02:55 98 01/01/20 01:55 01/01/20 01:26 99 01/01/20 00:55 95 01/01/20 00:21 01/01/20 00:10 01/01/20 00:05 12/31/19 23:55 12/31/19 23:40 12/31/19 23:39 12/31/19 23:38 12/31/19 23:26 100 12/31/19 22:42 98 12/31/19 22:31 100 12/31/19 21:52 100 12/31/19 20:16 98 Intake and Output 12/31/19 01/01/20 01/01/20 22:59 06:59 14:59 Output Total 500 Balance -500 Output: Urine 500 Other: Voiding Method Indwelling Catheter Indwelling Catheter Weight 85.275 kg 85.275 kg Results 01/01/20 10:34 01/01/20 10:34 Cardiac Enzymes 12/31/19 12/31/19 01/01/20 Range/Units 21:52 21:52 10:34 AST 36 (14-36) U/L Troponin I 0.043 H* 0.048 H* (0.000-0.034) ng/mL 01/01/20 Range/Units 10:34 AST 35 (14-36) U/L Troponin I (0.000-0.034) ng/mL Coagulation 12/31/19 Range/Units 21:52 PT 10.8 (9.0-12.0) sec APTT 22.6 (22.0-30.0) sec CBC 12/31/19 01/01/20 Range/Units 21:52 10:34 WBC 14.5 H 13.1 H (3.8-10.6) k/uL RBC 5.12 4.54 (3.80-5.40) m/uL Hgb 12.0 10.5 L (11.4-16.0) gm/dL Hct 39.8 36.1 (34.0-46.0) % Plt Count 353 325 (150-450) k/uL Comprehensive Metabolic Panel 12/31/19 01/01/20 Range/Units 21:52 10:34 Sodium 136 L 136 L (137-145) mmol/L Potassium 4.1 4.6 (3.5-5.1) mmol/L Chloride 100 97 L (98-107) mmol/L Carbon Dioxide 27 31 H (22-30) mmol/L BUN 17 16 (7-17) mg/dL Creatinine 0.68 0.70 (0.52-1.04) mg/dL Glucose 181 H 180 H (74-99) mg/dL Calcium 8.9 9.4 (8.4-10.2) mg/dL AST 36 35 (14-36) U/L ALT 19 19 (4-34) U/L Alkaline Phosphatase 102 87 (38-126) U/L Total Protein 6.2 L 6.3 (6.3-8.2) g/dL Albumin 3.6 3.6 (3.5-5.0) g/dL Current Medications Generic Name Dose Route Start Last Admin Trade Name Freq PRN Reason Stop Dose Admin Clonidine HCl 1 patch 01/01/20 11:00 01/01/20 10:59 Catapres-Tts 0.1mg Patch TRANSDERM 1 patch Q7D NANCY Administration Lisinopril/HCTZ 1 each 01/01/20 00:45 01/01/20 07:39 Zestoretic 10-12.5 PO 1 each BID NANCY Administration Hydromorphone HCl 1 mg 12/31/19 21:31 01/01/20 10:56 Dilaudid IVP 1 mg Q4HR PRN Administration Pain Promethazine HCl 25 mg/ Sodium 51 mls @ 200 mls/hr 12/31/19 22:24 01/01/20 08:52 Chloride IVPB 200 mls/hr Q6HR PRN Administration Nausea Cefazolin Sodium 2 gm/ Sodium 50 mls @ 100 mls/hr 01/02/20 12:00 Chloride IVPB 01/02/20 12:29 ONCE ONE Metoprolol Tartrate 50 mg 01/01/20 00:45 01/01/20 07:39 Lopressor PO 50 mg TID NANCY Administration Potassium Phos/Sodium Phos 1 each 01/01/20 21:00 Neutra-Phos Packet PO BID NANCY Intake and Output 12/31/19 01/01/20 01/01/20 22:59 06:59 14:59 Output Total 500 Balance -500 Output: Urine 500 Other: Voiding Method Indwelling Catheter Indwelling Catheter Weight 85.275 kg 85.275 kg 01/01/20 10:34 01/01/20 10:34
[2020-01-02] MEDS: LISINOPRIL-HCTZ 10-12.5 MG 1 EACH TAB PO SCH ×2 (09:04→22:30)
[2020-01-02] MEDS: METOPROLOL TARTRATE 50 MG TAB PO SCH ×3 (09:04→22:30)
[2020-01-02] MEDS: POTAS-SOD-PHOS 278-164-250 MG 1 EACH PACKET PO SCH ×2 (09:05→22:30)
[2020-01-02] MEDS ORDERED: METOPROLOL TARTRATE 50 MG TAB PO ONE (09:30)
[2020-01-02] MEDS: METOCLOPRAMIDE 5 MG/ML 2 ML VIAL IVP PRN (10:41)
[2020-01-02] MEDS ORDERED: IV FLUID CONTINUATION 1,000 ML IV ONE (11:20)
[2020-01-02 11:40] LABS: Glucose,Whole Blood 198 mg/dL (75-99)
[2020-01-02] MEDS ORDERED: PROPOFOL 10 MG/ML 20 ML VIAL IV ONE (12:07)
[2020-01-02] MEDS ORDERED: KETAMINE 10 MG/ML 20 ML VIAL ONE (12:07)
[2020-01-02] MEDS ORDERED: fentaNYL (PF) 50 MCG/ML 2 ML AMP ONE (12:07)
[2020-01-02] MEDS ORDERED: MIDAZOLAM 2 MG/2 ML VIAL ONE (12:07)
[2020-01-02] MEDS ORDERED: LACTATED RINGERS 1,000 ML IV ONE ×2 (12:21→14:40)
[2020-01-02] MEDS: ENOXAPARIN 40 MG/0.4 ML SYRINGE SQ SCH (12:36)
[2020-01-02] MEDS ORDERED: ceFAZolin 1,000 MG in SODIUM CHLORIDE 0.9% 1,000 ML IRRIGATION ONE (13:05)
--- NOTE | 2020-01-02 15:00 | FL ---
Fluoroscopy HISTORY: Hip fracture 2 minutes 48 seconds fluoroscopy time supplied to the referring clinician. 7 intraoperative C-arm im ages document the procedure. See dictated report from orthopedic surgery.
--- NOTE | 2020-01-02 15:01 | XR ---
Limited right femur HISTORY: Hip fracture 7 intraoperative C-arm images document the procedure
[2020-01-02] MEDS ORDERED: MAGNESIUM HYDROXIDE 2,400 MG/10 ML CUP PO PRN (15:03)
[2020-01-02] MEDS ORDERED: NALOXONE 0.4 MG/ML 1 ML VIAL IV PRN (15:03)
[2020-01-02] MEDS ORDERED: HYDROmorphone 0.5 MG/0.5 ML SYRINGE IVP PRN ×2 (15:03)
[2020-01-02] MEDS ORDERED: TEMAZEPAM 15 MG CAP PO PRN (15:03)
--- NOTE | 2020-01-02 15:43 | P.OP ---
Date of Procedure: 01/02/20 Procedure(s) Performed: PREOPERATIVE DIAGNOSIS: Right hip subtrochanteric fracture. POSTOPERATIVE DIAGNOSIS: Right hip subtrochanteric fracture. OPERATION: Right hipsubtrochanteric fracture open reduction and intramedullary nailing using long Synthes IT nail. EXPLOSIVE ORDNANCE DISPOSAL SPECIALIST: Lexi Moody PA-C (assistance with: Patient positioning, retraction, exposure, reduction, fixation, irrigation, hemostasis, closure, dressing) ANESTHESIA: General ESTIMATED BLOOD LOSS: 200 mL. (plus approximately 100 mL of old blood and fracture site) SPECIMENS REMOVED: Femoral reamings which were sent to pathology for analysis COMPLICATIONS: None OPERATIVE FINDINGS: See below INDICATIONS: Mrs. Meraz is a 74 year old female with a history injuring her right hip. The patient is on chronic steroids for her history of rheumatoid arthritis but no current generation immune modulators. She states she was moving in her chair and the thigh snapped. The fracture is an oblique fracture involving the subtrochanteric region of the proximal femur. The fracture is displaced and the patient is in need of surgical fixation. The patient wishes to proceed with the operation after explanation of the steps of the procedure as well as potential risks and complications. These have been explained as being inclusive of, but not limited to: Bleeding, infection, scarring, discomfort, blood vessel and/or nerve damage, malunion, nonunion, blood clot, pulmonary embolism, need for further surgery, gait disturbance, , and other risks. The consent form has been authorized. PROCEDURE: After appropriate consent was obtained, the patient was taken to the operating room and placed in supine position. Spinal anesthetic was administered and after confirmation of adequate anesthesia, the patient was carefully placed in the supine position on the operating room table in the fracture table. The patient was placed up against a well-padded peroneal post. Care was taken to make sure about that all pressure points were adequately padded. The affected leg was placed in boot traction and the unaffected leg was placed in a well leg velazquez. Using gentle longitudinal distraction as well as adduction and internal rotation, the fracture was reduced as assessed by AP and lateral C-arm imaging. This included a combination of longitudinal distraction with the fracture table frame, rotation both internally and externally until a satisfactory anterior posterior alignment was achieved. In typical fashion, the lateral view showed displaced fracture with the proximal fragment being flexed relative to the distal fragment. Once a preliminary reduction had been obtained, the thigh was prepped and draped in the usual aseptic fashion using ChloraPrep. Ioban drape was used for the case and the patient received intravenous antibiotics prior to incision. The incision was then created with a #10 blade in line with the fracture site laterally. Fascia félix was split, and muscular fascia was split so that the fracture could be accessed for placement of a reduction clamp. The reduction clamp was placed around the proximal distal fragments and rotation was adjusted under direct C-arm imaging until the fracture reduced appropriately. The clamp was left in place temporarily for placement of the nail. Another incision was created more proximally but was combined with the previously described incision. It was carried down through skin into the subcutaneous tissues and through fascia. Hemostasis was obtained using e lectrocautery. The tip of the greater trochanter was palpated and a guide pin was placed at the tip and directed into the femoral shaft as assessed with C-arm imaging. Once optimal pin position had been obtained, a 17 mm reamer was used over the guide pin to create a path for the IT nail. A long IT nail was selected as the fracture was entirely below the lesser trochanter. Measurements were taken for size of nail which measured 400 mm. A long guide pin was then placed into the medullary canal of the femur and reaming was performed to size 12 mm. IT nail selected was assembled to the insertion jig on the back table and bushings were checked for accuracy. The 11 mm x 400 mm nail was then inserted using gentle mallet taps until it was fully deployed. During insertion, the fracture was attempted to be held in anatomic alignment with the use of the reduction clamp internally. However, as the nail was inserted, the boom for the nail was contacting the reduction clamp and therefore the reduction clamp was removed during the final several centimeters of insertion of the nail. The amount of rotation of the implant was assessed based on the amount of anteversion of the femoral neck. This was rotated to match the patient's femoral neck anteversion and the helical blade guide was placed through the insertion jig and through an incision on the lateral side of the thigh more distal than the first. Once this guide was placed against the lateral cortex of the femur, a guide pin was drilled into the central inferior region of the femoral head and neck as based on AP and lateral C-arm imaging. Once acceptable pin position had been obtained, the guidewire was measured and appropriately sized helical blade was selected. The path for the helical blade was prepared using a tapered re amer. The helical blade was then inserted using gentle mallet taps along the guidewire until it was fully deployed. The anti-rotation screw was locked down. There did not appear to be any significant displacement on the AP view during this step; however, the lateral view showed that the proximal fragment had assumed a more flexed position. Several further attempts were made to correct the flexed posture of the proximal fragment, including loosening the antirotation lock on the nail, placing a reduction clamp, applying external pressure, reorienting the leg position with the fracture table, and readjusting the depth of the nail. These attempts partially corrected the flexion of the proximal fragment but it still remained somewhat displaced. The insertion apparatus for the helical blade was removed. The guide pin was then removed. Traction was then removed from the leg and the distal interlocks were placed using standard freehand technique. Finally, the insertion jig for the nail was removed and final C-arm images were taken and saved in both AP and lateral planes. The final x-rays showed satisfactory positioning of the implant and acceptable reduction of the fracture in in the context of the described exhaustive attempts to fully reduce the proximal fragment. The top of the nail was plugged with a small quantity of bone wax and the incisions were then thoroughly irrigated with normal saline. Final hemostasis was obtained using electrocautery and closure of the fascia was performed using 0-Vicryl suture. 2- 0 Vicryl suture was used in the subcutaneous tissues followed by standard skin closure. Sterile dressing was then applied and the patient was carefully removed from the fracture table frame and placed onto the stretcher. The patient tolerated the procedure well. There were no complications and approximately 200 mL of blood loss. The patient was then subsequently transferred to recovery room in stable condition. Sponge and needle counts were correct.
[2020-01-02 15:51] LABS: Basophils # (A) 0.1 k/uL (0-0.2); Basophils % (A) 0 %; Eosinophils # (A) 0.1 k/uL (0-0.7); Eosinophils % (A) 0 %; HCT 36.7 % (34.0-46.0); HGB 10.7 gm/dL (11.4-16.0); Hypochromasia Marked; Lymphocytes # (A) 1.6 k/uL (1.0-4.8); Lymphocytes % (A) 6 %; MCH 23.7 pg (25.0-35.0); MCHC 29.2 g/dL (31.0-37.0); MCV 81.1 fL (80.0-100.0); Mean Platelet Volume 7.7; Monocytes # (A) 1.6 k/uL (0-1.0); Monocytes % (A) 6 %; Neutrophils # (A) 21.3 k/uL (1.3-7.7); Neutrophils % (A) 85 %; Platelet Count 434 k/uL (150-450); RBC 4.53 m/uL (3.80-5.40); RDW 15.7 % (11.5-15.5); WBC 25.1 k/uL (3.8-10.6)
--- NOTE | 2020-01-02 16:16 | P.PN ---
Progress Note - Text Progress Note Date: 01/02/20 - Chief Complaint Right hip fracture History of presenting complaint: This is a 74-year-old patient of Dr. bosch. Chronic stable medical conditions include diabetes, hypertension, rheumatoid arthritis, varicose veins. For last few days patient is joints have been bothering her and affect in different joints including the hips and knees. Patient has been dizzy for about a week. Decreased appetite. For 3 days been having nausea vomiting. She was working on the computer was getting off the chair lost her balance fell down. Injuring her right hip. As a right hip fracture. Denies any chest pain no palpitation. Unable to take her medications and she came in her blood pressures running high over 200 systolic. Her some troponin leak. Very subtle EKG changes.. No abdominal pain. No diarrhea Today-doing in bed. Pending surgery. No chest pain. Seen by cardiology. Cleared to proceed for surgery. Review of systems: Was done for constitutional, cardiovascular, GI, pulmonary. relevant finding as above Active Medications Hydrocodone Bitart/Acetaminophen ([place] 5-325) 1 each PO Q6HR PRN PRN Reason: Pain Scale 1 to 5 Hydrocodone Bitart/Acetaminophen ([place] 5-325) 2 each PO Q6HR PRN PRN Reason: Pain Scale 6 to 10 Clonidine HCl (Catapres-Tts 0.1mg Patch) 1 patch TRANSDERM Q7D [facility] Last Admin: 01/01/20 10:59 Dose: 1 patch Documented by: Enoxaparin Sodium (Lovenox) 40 mg SQ DAILY [facility] Last Admin: 01/02/20 12:36 Dose: Not Given Documented by: Lisinopril/HCTZ (Zestoretic 10-12.5) 1 each PO BID [facility] Last Admin: 01/02/20 09:04 Dose: 1 each Documented by: Hydromorphone HCl (Dilaudid) 1 mg IVP Q4HR PRN PRN Reason: Pain Last Admin: 01/02/20 09:14 Dose: 1 mg Documented by: Hydromorphone HCl (Dilaudid) 0.125 mg IVP Q3HR PRN PRN Reason: Pain Scale 1 to 3 Hydromorphone HCl (Dilaudid) 0.25 mg IVP Q3HR PRN PRN Reason: Pain Scale 4 to 6 Hydromorphone HCl (Dilaudid) 0.5 mg IVP Q3HR PRN PRN Reason: Pain Scale 7 to 10 Promethazine HCl 25 mg/ Sodium (Chloride) 51 mls @ 200 mls/hr IVPB Q6HR PRN PRN Reason: Nausea Last Admin: 01/01/20 08:52 Dose: 200 mls/hr Documented by: Sodium Chloride (Saline 0.9%) 1,000 mls @ 100 mls/hr IV .Q10H [facility] Lactated Ringer's (Lactated Ringers) 1,000 mls @ 100 mls/hr IV .Q10H [facility] Cefazolin Sodium 2 gm/ Sodium (Chloride) 50 mls @ 100 mls/hr IVPB Q8HR [facility] Stop: 01/03/20 08:29 Magnesium Hydroxide (Milk Of Magnesia) 2,400 mg PO DAILY PRN PRN Reason: Constipation Metoclopramide HCl (Reglan) 5 mg IVP Q6HR PRN PRN Reason: Nausea And Vomiting Last Admin: 01/02/20 10:41 Dose: 5 mg Documented by: Metoprolol Tartrate (Lopressor) 50 mg PO TID [facility] Last Admin: 01/02/20 09:04 Dose: 50 mg Documented by: Naloxone HCl (Narcan) 0.2 mg IV Q2M PRN PRN Reason: Opioid Reversal Ondansetron HCl (Zofran) 4 mg IVP Q6HR PRN PRN Reason: Nausea And Vomiting Potassium Phos/Sodium Phos (Neutra-Phos Packet) 1 each PO BID [facility] Last Admin: 01/02/20 09:05 Dose: Not Given Documented by: Senna/Docusate Sodium (Senokot-S) 2 each PO HS [facility] Temazepam (Restoril) 15 mg PO HS PRN PRN Reason: Insomnia Physical examination: VITAL SIGNS: 98.6, 88, 18, 155/71, 91% on room air GENERAL: Laying in bed, awake EYES: Pupils equal. Conjunctiva normal. HEENT: External appearance of nose and ears normal, oral cavity grossly normal. NECK: JVD not raised; masses not palpable. HEART: First and second heart sounds are normal; no edema. LUNGS: Respiratory rate normal; slightly decreased breath sound. ABDOMEN: Soft, nontender, liver spleen not palpable, no masses palpable. PSYCH: Alert and oriented x3; mood and affect normal. MUSCULOSKELETAL: Evidence of OA in the hands, brace over right leg INVESTIGATIONS, reviewed in the clinical context: White count 14.5 hemoglobin 12 repeat 10.5 today to see 53 potassium 4.1 creatinine 0.68 Troponin I 0.043, 0.048 EKG tracing personally reviewed by me-Q waves in inferior leads Chest x-ray film-questionable infiltrate versus interstitial lung finding. Right hip x-ray-acute subtrochanteric right femur fracture 2-D echo-EF 60-65%, concentric LVH, moderate pulmonic regurgitation Assessment: -Acute subtrochanteric right femur fracture secondary to fall-pending surgery this afternoon -Rheumatoid arthritis, chronic -Obesity BMI 30.3 -Hypertensive heart disease -Moderate pulmonic regurgitation -Hypertensive urgency -Diabetes mellitus type 2 on oral hypoglycemic Plan: Patient awaiting surgery. Continue current medication treatment plan. Discussed with the patient. We will do a high resolution CT chest in the morning for possible pulmonary fibrosis Thank you Dr. Gillette
[2020-01-02 17:10] LABS: Glucose,Whole Blood 160 mg/dL (75-99)
[2020-01-02] MEDS: HYDROmorphone 0.5 MG/0.5 ML SYRINGE IVP PRN (18:24)
[2020-01-02] MEDS: ONDANSETRON 4 MG/2 ML VIAL IVP PRN (18:29)
[2020-01-02 20:43] LABS: Glucose,Whole Blood 172 mg/dL (75-99)
[2020-01-02] MEDS: SENNOSIDES-DOCUSATE SODIUM 1 EACH TAB PO SCH (22:29)
[2020-01-03] MEDS: LACTATED RINGERS 1,000 ML IV SCH ×4 (04:27→21:12)
[2020-01-03 07:04] LABS: Glucose,Whole Blood 199 mg/dL (75-99)
--- NOTE | 2020-01-03 09:04 | CT ---
EXAMINATION TYPE: CT chest wo con DATE OF EXAM: 01/03/2020 COMPARISON: None. HISTORY: Shortness of breath CT DLP: 585.8 mGycm. Automated Exposure Control for Dose Reduction was Utilized. TECHNIQUE: CT scan of the thorax is performed without IV contrast. High-resolution protocol was util ized. FINDINGS: There are multiple noncalcified pulmonary nodules in all segments of the lungs. There are a dditional subpleural nodules which are smaller. There is no evidence of interlobular septal thickenin g or centrilobular thickening. The largest of these nodules on the left measures 11.6 x 24.8 mm. The largest lesion on the right measures 13.4 mm. There is no significant internal mammary, mediastinal or hilar adenopathy. There is a 3.2 x 2.9 cm ri ght axillary mass likely representing an enlarged lymph node. There is no pleural or pericardial flui d. The heart is mildly enlarged. Deep in the right breast adjacent to the chest wall is a 4.0 x 4.5 cm soft tissue nodule. Soft tissue density adjacent to this is likely normal breast tissue. There is vascular calcification including the coronary arteries0. Visualized portions of the upper abdomen are unremarkable. Hypertrophic spondylosis within the spine. No bony destructive lesion is seen. IMPRESSION: MULTIPLE NONCALCIFIED PULMONARY NODULES, THE LARGEST NODULE DEEP WITHIN THE RIGHT BREAST AND AXILLARY ADENOPATHY ON THE RIGHT IS SUGGESTED OF BREAST NEOPLASM WITH METASTATIC CHANGE. BIOPSY OF THE BREAST LESION WOULD BE SUGGESTED.
[2020-01-03] MEDS: HYDROmorphone 1 MG/ML 1 ML SYRINGE IVP PRN ×2 (09:11→16:07)
[2020-01-03] MEDS: METOPROLOL TARTRATE 50 MG TAB PO SCH ×3 (09:12→23:48)
[2020-01-03] MEDS: ENOXAPARIN 40 MG/0.4 ML SYRINGE SQ SCH (09:12)
[2020-01-03] MEDS: POTAS-SOD-PHOS 278-164-250 MG 1 EACH PACKET PO SCH ×2 (09:13→21:12)
[2020-01-03] MEDS: SODIUM CHLORIDE 0.9% 1,000 ML IV SCH ×4 (09:13→21:09)
[2020-01-03] MEDS: LISINOPRIL-HCTZ 10-12.5 MG 1 EACH TAB PO SCH ×3 (09:13→21:12)
[2020-01-03] MEDS: ONDANSETRON 4 MG/2 ML VIAL IVP PRN (09:19)
--- NOTE | 2020-01-03 10:11 | P.PN ---
Subjective Progress Note Date: 01/03/20 Principal diagnosis: Subtrochanteric fracture right femur. Status post open reduction internal fixation right femur with long IT nail. This is a 74-year-old female with history of subtrochanteric fracture of the right femur. She is postop open reduction internal fixation with long IT nail right femur on 01/02/2020. She she is stable from an orthopedic standpoint. She is having some nausea and vomiting this morning. Objective - Vital Signs Vital signs: Vital Signs Temp 100.5 F H 01/03/20 08:02 Pulse 95 01/03/20 08:02 Resp 17 01/03/20 08:02 BP 134/66 01/03/20 08:02 Pulse Ox 95 01/03/20 08:56 Intake & Output 01/02/20 01/03/20 01/03/20 18:59 06:59 18:59 Intake Total 1501 300 Output Total 400 300 Balance 1101 0 Intake: IV 1501 Tube Feeding 300 Output: Urine 200 300 Estimated Blood Loss 200 Other: Voiding Method Indwelling Catheter Indwelling Catheter - Exam This is a 74-year-old female in no acute distress. She is alert and oriented at this time. She is quite nauseated and not feeling well. Exam of the lower extremity reveals that her dressing is clean, dry and intact. She has full foot and ankle motion without difficulty or pain. Neurovascular status to the lower extremity is intact. - Labs CBC & Chem 7: 01/02/20 15:19 01/01/20 10:34 Labs: Abnormal Lab Results - Last 24 Hours (Table) 01/02/20 01/02/20 01/02/20 Range/Units 11:35 15:19 17:07 WBC 25.1 H (3.8-10.6) k/uL Hgb 10.7 L (11.4-16.0) gm/dL MCH 23.7 L (25.0-35.0) pg MCHC 29.2 L (31.0-37.0) g/dL RDW 15.7 H (11.5-15.5) % Neutrophils # 21.3 H (1.3-7.7) k/uL Monocytes # 1.6 H (0-1.0) k/uL POC Glucose (mg/dL) 198 H 160 H (75-99) mg/dL 01/02/20 01/03/20 Range/Units 20:42 07:02 WBC (3.8-10.6) k/uL Hgb (11.4-16.0) gm/dL MCH (25.0-35.0) pg MCHC (31.0-37.0) g/dL RDW (11.5-15.5) % Neutrophils # (1.3-7.7) k/uL Monocytes # (0-1.0) k/uL POC Glucose (mg/dL) 172 H 199 H (75-99) mg/dL Assessment and Plan (1) Subtrochanteric fracture of right femur Current Visit: Yes Status: Acute Code(s): S72.21XA - DISPLACED SUBTROC HANTERIC FRACTURE OF RIGHT FEMUR, INIT SNOMED Code(s): 743358503 (2) Fracture of hip Current Visit: Yes Status: Acute Code(s): S72.009A - FRACTURE OF UNSP PART OF NECK OF UNSP FEMUR, INIT SNOMED Code(s): 207217556 (3) Right femoral fracture Current Visit: Yes Status: Acute Code(s): S72.91XA - UNSP FRACTURE OF RIGHT FEMUR, INIT FOR CLOS FX SNOMED Code(s): 35568541 (4) Dizziness, nonspecific Current Visit: Yes Status: Acute Code(s): R42 - DIZZINESS AND GIDDINESS SNOMED Code(s): 078870100 (5) History of open reduction and internal fixation (ORIF) procedure Current Visit: Yes Status: Acute Code(s): Z98.890 - OTHER SPECIFIED POSTPROCEDURAL STATES SNOMED Code(s): 805531394 Plan: The clinical findings are discussed with the patient. We will try to get her nausea under control today. Hopefully we will be able to get her up with physical therapy. She is nonweightbearing to the right lower extremity. I anticipate need for inpatient rehab at discharge.
[2020-01-03 11:21] LABS: Glucose,Whole Blood 207 mg/dL (75-99)
[2020-01-03 12:05] LABS: Anisocytosis Slight; Basophils % (A) 0 %; Eosinophils # (A) 0.1 k/uL (0-0.7); Eosinophils % (A) 0 %; HCT 29.7 % (34.0-46.0); Hypochromasia Moderate; Lymphocytes # (A) 1.1 k/uL (1.0-4.8); Lymphocytes % (A) 8 %; MCH 23.3 pg (25.0-35.0); MCHC 29.8 g/dL (31.0-37.0); MCV 78.4 fL (80.0-100.0); Microcytosis Slight; Monocytes # (A) 0.9 k/uL (0-1.0); Monocytes % (A) 7 %; Neutrophils # (A) 12.1 k/uL (1.3-7.7); Neutrophils % (A) 83 %; Platelet Count 337 k/uL (150-450); RBC 3.79 m/uL (3.80-5.40); RDW 16.5 % (11.5-15.5); WBC 14.5 k/uL (3.8-10.6)
[2020-01-03 12:09] LABS: HGB 8.8 gm/dL (11.4-16.0)
--- NOTE | 2020-01-03 13:32 | P.CONS ---
History of Present Illness - Reason for Consult Consult date: 01/03/[address] Requesting physician: Phuc Gillette - Chief Complaint Fall and femur fracture - History of Present Illness Ms. Meraz is a very pleasant 74-year-old female with a history of diabetes, hypertension, as well as several other comorbidities who is here for fall. She lost her balance and fell while trying to get out of her chair and ended up with a right femur fracture. Seen by orthopedics as well as internal medicine. 4 preop risk assessment she underwent a 2-D echo which revealed normal EF as well as pulmonic regurgitation and LVH. She underwent orthopedic surgery yesterday, on 01/02/20. She does have underlying rheumatoid arthritis and due pulmonary interstitial infiltrates seen on baseline CXR, she had a HRCT done earlier today which revealed a 4 x 4 and a half centimeter right breast mass as well as 3.2 x 2.9 cm right axillary lymph node. This also revealed several bilateral lung nodules, the largest of which was 2.5 cm. We were called for further evaluation of possible underlying malignancy. Other than her fall, patient has felt well. No symptoms prior to admission. Has not had a mammogram in a long time. Has not paid attention to whether or not she had a breast mass. No current smoking, alcohol, or drug use. History of smoking 1ppd x 35 yrs, quit in 1992. No known family history of breast cancer. Brother with esophageal cancer. Sister had a hysterectomy at young age, unknown why. No other family history of cancer. Review of Systems All systems: negative Constitutional: Reports as per HPI Past Medical History Past Medical History: Diabetes Mellitus, Hypertension, Rheumatoid Arthritis (RA) Additional Past Medical History / Comment(s): pre diabetes, recently has had episodes of dizziness and fuzzy vision, 2012 had septic shock r/t bladder/kidney infection, varicose veins History of Any Multi-Drug Resistant Organisms: None Reported Past Surgical History: Appendectomy Past Anesthesia/Blood Transfusion Reactions: No Reported Reaction Past Psychological History: No Psychological Hx Reported Smoking Status: Former smoker Past Alcohol Use History: None Reported Past Drug Use History: None Reported - Past Family History Brother(s) Family Medical History: Cancer Additional Family Medical History / Comment(s): 3x brother from cancer (2x brother esophageal cancer) Father Family Medical History: Myocardial Infarction ([place]) Additional Family Medical History / Comment(s): alcoholism Medications and Allergies Home Medications Medication Instructions Recorded Confirmed Type Allopurinol [Zyloprim] 100 mg PO DAILY 12/31/19 12/31/19 History Atenolol 200 mg PO DAILY 12/31/19 12/31/19 History Ergocalciferol [Vitamin D2] 50,000 unit PO Q7D 12/31/19 12/31/19 History HYDROcodone/APAP 5-325MG [Toxey 1 tab PO Q8H 12/31/19 12/31/19 History 5-325] Lisinopril [Prinivil] 20 mg PO DAILY 12/31/19 12/31/19 History glipiZIDE XL [Glucotrol Xl] 5 mg PO DAILY 12/31/19 12/31/19 History predniSONE 10 mg PO DAILY 12/31/19 12/31/19 History Allergies Allergy/AdvReac Type Severity Reaction Status Date / Time latex Allergy Rash/Hives Verified 12/31/19 21:57 Penicillins Allergy Rash/Hives Verified 12/31/19 21:57 warfarin [From Coumadin] Allergy Rash/Hives Verified 12/31/19 21:57 Physical Exam Vitals: Vital Signs Temp Pulse Pulse Resp BP Pulse Ox 01/03/20 08:56 95 01/03/20 08:02 100.5 F H 95 17 134/66 95 01/03/20 04:00 72 86 18 01/03/20 01:28 98.0 F 86 18 128/68 98 01/02/20 22:44 99.0 F 96 18 114/68 97 01/02/20 19:22 16 125/72 96 01/02/20 19:13 18 01/02/20 19:08 72 16 01/02/20 18:15 90 125/72 01/02/20 18:00 94 123/66 01/02/20 17:45 89 142/73 01/02/20 17:30 76 122/56 01/02/20 17:15 78 138/66 01/02/20 17:00 76 138/69 01/02/20 16:45 94 138/69 01/02/20 16:30 89 146/69 01/02/20 16:25 98.1 F 87 150/75 97 01/02/20 16:01 86 18 147/67 92 L 01/02/20 15:46 86 16 150/65 92 L 01/02/20 15:31 80 18 149/64 95 01/02/20 15:16 78 18 142/65 100 01/02/20 15:00 97.8 F 86 16 91/48 97 01/02/20 14:56 98 F 63 18 113/49 96 Intake and Output 01/02/20 01/03/20 01/03/20 22:59 06:59 14:59 Intake Total 200 300 Output Total 300 Balance -100 300 Intake: IV 200 Tube Feeding 300 Output: Urine 300 Other: Voiding Method Indwelling Catheter Indwelling Catheter Indwelling Catheter Gen.: In no acute distress. HEENT:No conjunctival pallor or scleral icterus. Mucosa moist. Neck: Neck supple. Lymph: No cervical/supraclavicular or left axillary lymphadenopathy. She does have a palpable right axillary LN, mobile and nontender. Breast: No palpable masses or skin/nipple changes or discharge on the left. On the right, there is a palpable mass in the upper quadrant, deep, near midline although exam limited as pt unable to lay flat on her back due to recent surgery. Nontender and without skin/nipple changes or discharge. Lungs: CTAB without wheezing or rhonchi. Heart: Regular rate. No lower extremity edema. Abdomen: Soft, nontender, nondistended, with positive bowel sounds. No hepatosplenomegaly or masses appreciated. Exam limited due to body habitus and positioning. MSK: Right lower extremity with surgical dressing, CTI. Neuro: Alert and oriented 3. No obvious gross neurologic deficits. Skin: No jaundice or rash. Psych: Appropriate affect. Results CBC & Chem 7: 01/03/20 11:39 01/01/20 10:34 Labs: Abnormal Lab Results - Last 24 Hours (Table) 01/02/20 01/02/20 01/02/20 Range/Units 15:19 17:07 20:42 WBC 25.1 H (3.8-10.6) k/uL RBC (3.80-5.40) m/uL Hgb 10.7 L (11.4-16.0) gm/dL Hct (34.0-46.0) % MCV (80.0-100.0) fL MCH 23.7 L (25.0-35.0) pg MCHC 29.2 L (31.0-37.0) g/dL RDW 15.7 H (11.5-15.5) % Neutrophils # 21.3 H (1.3-7.7) k/uL Monocytes # 1.6 H (0-1.0) k/uL POC Glucose (mg/dL) 160 H 172 H (75-99) mg/dL 01/03/20 01/03/20 01/03/20 Range/Units 07:02 11:20 11:39 WBC 14.5 H (3.8-10.6) k/uL RBC 3.79 L (3.80-5.40) m/uL Hgb 8.8 L D (11.4-16.0) gm/dL Hct 29.7 L (34.0-46.0) % MCV 78.4 L (80.0-100.0) fL MCH 23.3 L (25.0-35.0) pg MCHC 29.8 L (31.0-37.0) g/dL RDW 16.5 H (11.5-15.5) % Neutrophils # 12.1 H (1.3-7.7) k/uL Monocytes # (0-1.0) k/uL POC Glucose (mg/dL) 199 H 207 H (75-99) mg/dL CT scan - chest: report reviewed Assessment and Plan Assessment: 1. Right breast mass with right axillary LAD 2. Lung nodules 3. Right femur fracture 4. HTN 5. DM 6. RA Plan: Ms. Meraz is a very pleasant 74 yo female with history of multiple comorbidities as listed above under history who is here for right femur fracture after fall. She had orthopedic surgery. CT chest was done to reassess pulmonary interstitial infiltrates seen on baseline CXR, results showing right breast mass as well as right axillary LAD and lung nodules. Clinically this is highly concerning for breast cancer. Unclear if lung nodules would be related although largest is quite sizable at 2.5 cm. She will need further work up of this, including diagnostic mammogram with US of the breast and axilla, biopsy, and PET scan to reassess her lung nodules and rule out distant metastatic disease. Work up can be completed outpatient. Will plan on having pt follow up in clinic in 1-2 weeks after discharge such that work up can be arranged as she is healing from her surgery. Discussed with pt in detail and she was agreeable to the plan. All of their questions were answered.
[2020-01-03] MEDS: METOCLOPRAMIDE 5 MG/ML 2 ML VIAL IVP PRN (15:58)
[2020-01-03] MEDS: HYDROcodone/APAP 5-325MG 1 EACH TAB PO PRN ×2 (15:58→23:48)
[2020-01-03 17:29] LABS: Glucose,Whole Blood 176 mg/dL (75-99)
[2020-01-03 20:07] LABS: Glucose,Whole Blood 141 mg/dL (75-99)
[2020-01-03] MEDS: SENNOSIDES-DOCUSATE SODIUM 1 EACH TAB PO SCH (21:12)
--- NOTE | 2020-01-03 22:09 | P.PN ---
Subjective Progress Note Date: 01/03/20 Principal diagnosis: status post ORIF, rightintertrochanteric fracture This is a 74-year-old patient of Dr. bosch. Chronic stable medical conditions include diabetes, hypertension, rheumatoid arthritis, varicose veins. For last few days patient is joints have been bothering her and affect in different joints including the hips and knees. Patient has been dizzy for about a week. Decreased appetite. For 3 days been having nausea vomiting. She was working on the computer was getting off the chair lost her balance fell down. Injuring her right hip. As a right hip fracture. Denies any chest pain no palpitation. Unable to take her medications and she came in her blood pressures running high over 200 systolic. Her some troponin leak. Very subtle EKG changes.. No abdominal pain. No diarrhea. INVESTIGATIONS, reviewed in the clinical context: White count 14.5 hemoglobin 12 repeat 10.5 today to see 53 potassium 4.1 creatinine 0.68 Troponin I 0.043, 0.048 EKG tracing personally reviewed by me-Q waves in inferior leads Chest x-ray film-questionable infiltrate versus interstitial lung finding. Right hip x-ray-acute subtrochanteric right femur fracture 2-D echo-EF 60-65%, concentric LVH, moderate pulmonic regurgitation 01/03/2020 Patient is status post Right hipsubtrochanteric fracture open reduction and intramedullary nailing using long Synthes IT nail on 01/02/2020 patient was found to have pulmonary interstitial infiltrates seen on baseline CXR, she had a HRCT done earlier today which revealed a 4 x 4 and a half c entimeter right breast mass as well as 3.2 x 2.9 cm right axillary lymph node. This also revealed several bilateral lung nodules, the largest of which was 2.5 cm. oncology was consulted . recommends workup including mammogram ultrasound and PET scan which can be done as an outpatient. Pain is controlled with medications. Complains of nausea in the morning. currently afebrile. no complaints of abdominal pain. No diarrhea. No vomiting. Denied any chest pain or shortness of breath. She Active Medications Hydrocodone Bitart/Acetaminophen (Morrow 5-325) 1 each PO Q6HR PRN PRN Reason: Pain Scale 1 to 5 Last Admin: 01/03/20 15:58 Dose: 1 each Documented by: Hydrocodone Bitart/Acetaminophen (Morrow 5-325) 2 each PO Q6HR PRN PRN Reason: Pain Scale 6 to 10 Clonidine HCl (Catapres-Tts 0.1mg Patch) 1 patch TRANSDERM Q7D [facility] Last Admin: 01/01/20 10:59 Dose: 1 patch Documented by: Enoxaparin Sodium (Lovenox) 40 mg SQ DAILY [facility] Last Admin: 01/03/20 09:12 Dose: 40 mg Documented by: Lisinopril/HCTZ (Zestoretic 10-12.5) 1 each PO BID [facility] Last Admin: 01/03/20 21:12 Dose: Not Given Documented by: Hydromorphone HCl (Dilaudid) 1 mg IVP Q4HR PRN PRN Reason: Pain Last Admin: 01/03/20 16:07 Dose: 1 mg Documented by: Hydromorphone HCl (Dilaudid) 0.125 mg IVP Q3HR PRN PRN Reason: Pain Scale 1 to 3 Hydromorphone HCl (Dilaudid) 0.25 mg IVP Q3HR PRN PRN Reason: Pain Scale 4 to 6 Hydromorphone HCl (Dilaudid) 0.5 mg IVP Q3HR PRN PRN Reason: Pain Scale 7 to 10 Last Admin: 01/02/20 18:24 Dose: 0.5 mg Documented by: Promethazine HCl 25 mg/ Sodium (Chloride) 51 mls @ 200 mls/hr IVPB Q6HR PRN PRN Reason: Nausea Last Admin: 01/01/20 08:52 Dose: 200 mls/hr Documented by: Sodium Chloride (Saline 0.9%) 1,000 mls @ 100 mls/hr IV .Q10H [facility] Last Admin: 01/03/20 21:09 Dose: 100 mls/hr Documented by: Lactated Ringer's (Lactated Ringers) 1,000 mls @ 100 mls/hr IV .Q10H [facility] Last Admin: 01/03/20 21:12 Dose: Not Given Documented by: Magnesium Hydroxide (Milk Of Magnesia) 2,400 mg PO DAILY PRN PRN Reason: Constipation Metoclopramide HCl (Reglan) 5 mg IVP Q6HR PRN PRN Reason: Nausea And Vomiting Last Admin: 01/03/20 15:58 Dose: 5 mg Documented by: Metoprolol Tartrate (Lopressor) 50 mg PO TID [facility] Last Admin: 01/03/20 15:59 Dose: 50 mg Documented by: Naloxone HCl (Narcan) 0.2 mg IV Q2M PRN PRN Reason: Opioid Reversal Ondansetron HCl (Zofran) 4 mg IVP Q6HR PRN PRN Reason: Nausea And Vomiting Last Admin: 01/03/20 09:19 Dose: 4 mg Documented by: Potassium Phos/Sodium Phos (Neutra-Phos Packet) 1 each PO BID [facility] Last Admin: 01/03/20 21:12 Dose: Not Given Documented by: Senna/Docusate Sodium (Senokot-S) 2 each PO HS [facility] Last Admin: 01/03/20 21:12 Dose: Not Given Documented by: Temazepam (Restoril) 15 mg PO HS PRN PRN Reason: Insomnia Objective - Vital Signs Vital signs: Vital Signs Temp 100.5 F H 01/03/20 08:02 Pulse 95 01/03/20 08:02 Resp 17 01/03/20 08:02 BP 134/66 01/03/20 08:02 Pulse Ox 95 01/03/20 08:56 Intake & Output 01/02/20 01/03/20 01/03/20 18:59 06:59 18:59 Intake Total 1501 300 Output Total 400 300 Balance 1101 0 Intake: IV 1501 Tube Feeding 300 Output: Urine 200 300 Estimated Blood Loss 200 Other: Voiding Method Indwelling Catheter Indwelling Catheter Indwelling Catheter - Exam GENERAL: Laying in bed, awake EYES: Pupils equal. Conjunctiva normal. HEENT: External appearance of nose and ears normal, oral cavity grossly normal. NECK: JVD not raised; masses not palpable. HEART: First and second heart sounds are normal; no edema. LUNGS: Respiratory rate normal; slightly decreased breath sound. ABDOMEN: Soft, nontender, liver spleen not palpable, no masses palpable. PSYCH: Alert and oriented x3; mood and affect normal. MUSCULOSKELETAL: Evidence of OA in the hands. right hip surgical site bandaged. - Labs CBC & Chem 7: 01/03/20 11:39 01/01/20 10:34 Labs: Abnormal Lab Results - Last 24 Hours (Table) 01/02/20 01/02/20 01/02/20 Range/Units 15:19 17:07 20:42 WBC 25.1 H (3.8-10.6) k/uL RBC (3.80-5.40) m/uL Hgb 10.7 L (11.4-16.0) gm/dL Hct (34.0-46.0) % MCV (80.0-100.0) fL MCH 23.7 L (25.0-35.0) pg MCHC 29.2 L (31.0-37.0) g/dL RDW 15.7 H (11.5-15.5) % Neutrophils # 21.3 H (1.3-7.7) k/uL Monocytes # 1.6 H (0-1.0) k/uL POC Glucose (mg/dL) 160 H 172 H (75-99) mg/dL 01/03/20 01/03/20 01/03/20 Range/Units 07:02 11:20 11:39 WBC 14.5 H (3.8-10.6) k/uL RBC 3.79 L (3.80-5.40) m/uL Hgb 8.8 L D (11.4-16.0) gm/dL Hct 29.7 L (34.0-46.0) % MCV 78.4 L (80.0-100.0) fL MCH 23.3 L (25.0-35.0) pg MCHC 29.8 L (31.0-37.0) g/dL RDW 16.5 H (11.5-15.5) % Neutrophils # 12.1 H (1.3-7.7) k/uL Monocytes # (0-1.0) k/uL POC Glucose (mg/dL) 199 H 207 H (75-99) mg/dL Assessment and Plan Assessment: -Right breast mass with right axillary LAD and multiple lung nodules. likely metastatic breast cancer. -Acute subtrochanteric right femur fracture secondary to fall-status post ORIF -Rheumatoid arthritis, chronic -Obesity BMI 30.3 -Hypertensive heart disease -Moderate pulmonic regurgitation -Hypertensive urgency -Diabetes mellitus type 2 on oral hypoglycemic -DVT prophylaxis On Lovenox subcu Plan: patient was seen by oncology due to right breast mass and multiple pulmonary nodules. Recommends outpatient workup in the next 1-2 weeks. Chest Continue current medication treatment plan. Discussed with the patientand her daughter at bedside. Time with Patient: Greater than 30
[2020-01-04] MEDS: SODIUM CHLORIDE 0.9% 1,000 ML IV SCH ×3 (02:27→20:00)
[2020-01-04 03:46] LABS: Glucose,Whole Blood 130 mg/dL (75-99)
--- NOTE | 2020-01-04 04:31 | CT ---
EXAMINATION TYPE: CT brain wo con DATE OF EXAM: 01/04/2020 COMPARISON: None HISTORY: stroke CT DLP: 1566.5 mGycm Automated exposure control for dose reduction was used. Exam performed with no contrast. There is mild cerebral atrophy. There is no mass effect nor midline shift. There is no sign of intrac ranial hemorrhage. There is a 1.3 cm rounded lytic area involving the frontal bone near the midline. The density is 53. There is a similar much larger lytic lesion in the occipital skull that measures 4 .2 cm in diameter. There is 8 mm lytic area in the right posterior parietal skull. IMPRESSION: Cerebral atrophy. No acute intracranial abnormality. Osteolytic lesions in the skull with rounded soft tissue density masses which are expansile into the subcutaneous tissues and also into the brain. No disturbance seen of the brain parenchyma adjacent t o the masses. These are suggestive of metastatic disease.
--- NOTE | 2020-01-04 04:38 | CT ---
EXAMINATION TYPE: CODE STROKE: CTA head neck DATE OF EXAM: 01/04/2020 COMPARISON: None HISTORY: Code stroke AMS CT DLP: 1566.5 mGycm Automated exposure control for dose reduction was used. CONTRAST: Performed with IV Contrast, patient injected with 65 mL of Isovue 370. Multiple axial sections were obtained from the level of the aortic arch to the vertex of the brain wi th intravenous contrast. There are 3-D post processed images. There is normal branching pattern of the great vessels on the aortic arch. There is bilateral arteria l flow in the subclavian arteries. There is arterial flow in the vertebral arteries bilaterally. Ther e is arterial flow in the common internal and external carotid arteries bilaterally. There is mild pl aque formation at the carotid artery bifurcations and lumen narrowing of less than 20%. There is no e vidence of carotid or vertebral artery aneurysm or dissection. There is arterial flow in the anterior middle and posterior cerebral arteries. There is arterial flow in the vertebrobasilar artery system. There is no mass effect. There is no sign of aneurysm or neova scularity. I see no evidence of intracranial arterial stenosis. There is normal contrast opacification of the venous sinuses. IMPRESSION: Negative CT angiogram of the brain. Minimal plaque at the carotid artery bifurcations and less than 20% stenosis of the proximal internal carotid arteries. Osteolytic skull lesions noted which are described in the CT brain report.
[2020-01-04 04:39] LABS: Albumin 2.5 g/dL (3.5-5.0); Calcium 8.7 mg/dL (8.4-10.2); Partial Thromboplastin Time 22.8 sec (22.0-30.0); Potassium 4.4 mmol/L (3.5-5.1); Prothrombin Time 10.6 sec (9.0-12.0); Total Bilirubin 0.5 mg/dL (0.2-1.3)
[2020-01-04 04:45] LABS: Anisocytosis Slight; Basophils % (A) 0 %; Eosinophils # (A) 0.2 k/uL (0-0.7); Eosinophils % (A) 1 %; HCT 26.8 % (34.0-46.0); Hypochromasia Moderate; Lymphocytes # (A) 1.3 k/uL (1.0-4.8); Lymphocytes % (A) 10 %; MCH 23.6 pg (25.0-35.0); MCV 78.8 fL (80.0-100.0); Mean Platelet Volume 7.4; Monocytes # (A) 0.9 k/uL (0-1.0); Monocytes % (A) 7 %; Neutrophils # (A) 10.5 k/uL (1.3-7.7); Neutrophils % (A) 80 %; Platelet Count 297 k/uL (150-450); RDW 16.9 % (11.5-15.5); WBC 13.2 k/uL (3.8-10.6)
[2020-01-04 07:14] LABS: Glucose,Whole Blood 132 mg/dL (75-99)
[2020-01-04] MEDS: HYDROcodone/APAP 5-325MG 1 EACH TAB PO PRN ×3 (10:03→20:00)
[2020-01-04] MEDS: METOPROLOL TARTRATE 50 MG TAB PO SCH ×3 (10:04→21:35)
[2020-01-04] MEDS: ASPIRIN 325 MG TAB PO SCH (10:04)
[2020-01-04] MEDS: ENOXAPARIN 40 MG/0.4 ML SYRINGE SQ SCH (10:04)
[2020-01-04] MEDS: LISINOPRIL-HCTZ 10-12.5 MG 1 EACH TAB PO SCH ×2 (10:05→21:35)
[2020-01-04] MEDS: POTAS-SOD-PHOS 278-164-250 MG 1 EACH PACKET PO SCH ×2 (10:06→21:35)
[2020-01-04] MEDS: LACTATED RINGERS 1,000 ML IV SCH ×2 (10:06→17:51)
[2020-01-04] MEDS: ONDANSETRON 4 MG/2 ML VIAL IVP PRN (10:08)
--- NOTE | 2020-01-04 11:06 | P.PN ---
Subjective Progress Note Date: 01/04/20 The patient is a 74-year-old female with past medical history of hypertension, diabetes mellitus, rheumatoid arthritis, and recent right hip fracture status post ORIF, who was consulted for an episode of atrial fibrillation and possible acute CVA overnight. She had developed confusion yesterday, therefore stroke was called. Brain CT was negative for acute infarct, however there are multiple osteolytic lesions with rounded soft tissue masses, which are suggestive of metastatic disease. Incidentally on a routine chest x-ray during her admission she was found to have a right breast mass as well. On exam the patient is lying comfortably in bed. She denies any chest pain, chest pressure, palpitations, dyspnea, dizziness, or vertigo. She does have some discomfort at her surgical site. GENERAL: Well-appearing, well-nourished and in no acute distress. NECK: Supple without JVD or thyromegaly. LUNGS: Breath sounds clear to auscultation bilaterally. Respiration equal and unlabored. No wheezes, rales or rhonchi. HEART: Regular rate and rhythm without murmurs, rubs or gallops. S1 and S2 heard. EXTREMITIES: Normal range of motion, no edema. No clubbing or cyanosis. Peripheral pulses intact and strong. Telemetry strips were reviewed showing a brief episode of paroxysmal atrial fibrillation Impression: #1 paroxysmal atrial fibrillation, new onset #2 left intertrochanteric femur fracture, status post ORIF #3 elevated troponin, no rise and fall pattern #4 hypertension #5 diabetes mellitus #6 right breast mass with possible brain metastases Plan: Patient will need anticoagulation for future, however this will be determined by hematology after further oncology workup. Patient is currently on Lovenox status post ORIF. Patient has been started on atorvastatin 20 mg for CV and stroke prevention. Objective - Vital Signs Vital signs: Vital Signs Temp 98.4 F 01/04/20 07:51 Pulse 82 01/04/20 07:51 Resp 18 01/04/20 07:51 BP 124/64 01/04/20 07:51 Pulse Ox 94 L 01/04/20 07:51 Intake & Output 01/03/20 01/04/20 01/04/20 18:59 06:59 18:59 Intake Total 1250 1050 Balance 1250 1050 Intake: Intake, IV Titration 850 1000 Amount Sodium Chloride 0.9% 1, 800 1000 000 ml @ 100 mls/hr IV . Q10H [facility] Rx#:[id number] ceFAZolin 2 gm In Sodium 50 Chloride 0.9% 50 ml @ 100 mls/hr IVPB Q8HR [facility] Rx# :[id number] Oral 400 50 Other: Voiding Method Indwelling Catheter Indwelling Catheter Indwelling Catheter - Labs CBC & Chem 7: 01/04/20 04:13 01/04/20 04:13 Labs: Abnormal Lab Results - Last 24 Hours (Table) 01/03/20 01/03/20 01/03/20 Range/Units 11:20 11:39 17:28 WBC 14.5 H (3.8-10.6) k/uL RBC 3.79 L (3.80-5.40) m/uL Hgb 8.8 L D (11.4-16.0) gm/dL Hct 29.7 L (34.0-46.0) % MCV 78.4 L (80.0-100.0) fL MCH 23.3 L (25.0-35.0) pg MCHC 29.8 L (31.0-37.0) g/dL RDW 16.5 H (11.5-15.5) % Neutrophils # 12.1 H (1.3-7.7) k/uL Sodium (137-145) mmol/L BUN (7-17) mg/dL Glucose (74-99) mg/dL POC Glucose (mg/dL) 207 H 176 H (75-99) mg/dL AST (14-36) U/L Troponin I (0.000-0.034) ng/mL Total Protein (6.3-8.2) g/dL Albumin (3.5-5.0) g/dL 01/03/20 01/04/20 01/04/20 Range/Units 20:05 03:23 04:13 WBC 13.2 H (3.8-10.6) k/uL RBC 3.40 L (3.80-5.40) m/uL Hgb 8.0 L (11.4-16.0) gm/dL Hct 26.8 L (34.0-46.0) % MCV 78.8 L (80.0-100.0) fL MCH 23.6 L (25.0-35.0) pg MCHC 30.0 L (31.0-37.0) g/dL RDW 16.9 H (11.5-15.5) % Neutrophils # 10.5 H (1.3-7.7) k/uL Sodium (137-145) mmol/L BUN (7-17) mg/dL Glucose (74-99) mg/dL POC Glucose (mg/dL) 141 H 130 H (75-99) mg/dL AST (14-36) U/L Troponin I (0.000-0.034) ng/mL Total Protein (6.3-8.2) g/dL Albumin (3.5-5.0) g/dL 01/04/20 01/04/20 01/04/20 Range/Units 04:13 04:13 07:12 WBC (3.8-10.6) k/uL RBC (3.80-5.40) m/uL Hgb (11.4-16.0) gm/dL Hct (34.0-46.0) % MCV (80.0-100.0) fL MCH (25.0-35.0) pg MCHC (31.0-37.0) g/dL RDW (11.5-15.5) % Neutrophils # (1.3-7.7) k/uL Sodium 132 L (137-145) mmol/L BUN 39 H (7-17) mg/dL Glucose 127 H (74-99) mg/dL POC Glucose (mg/dL) 132 H (75-99) mg/dL AST 59 H (14-36) U/L Troponin I 0.089 H* (0.000-0.034) ng/mL Total Protein 5.0 L (6.3-8.2) g/dL Albumin 2.5 L (3.5-5.0) g/dL
--- NOTE | 2020-01-04 11:11 | P.PN ---
Subjective Progress Note Date: 01/04/20 Principal diagnosis: Subtrochanteric fracture right femur. Status post open reduction internal fixation right femur with long IT nail. This is a 74-year-old female with history of subtrochanteric fracture of the right femur. She is postop open reduction internal fixation with long IT nail right femur on 01/02/2020. She she is stable from an orthopedic standpoint. She had an episode of mental status changes last evening as well as shortness of breath. 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 The patient continues to have some nausea today. She has declined physical therapy. Objective - Vital Signs Vital signs: Vital Signs Temp 98.4 F 01/04/20 07:51 Pulse 82 01/04/20 07:51 Resp 18 01/04/20 07:51 BP 124/64 01/04/20 07:51 Pulse Ox 94 L 01/04/20 07:51 Intake & Output 01/03/20 01/04/20 01/04/20 18:59 06:59 18:59 Intake Total 1250 1050 Balance 1250 1050 Intake: Intake, IV Titration 850 1000 Amount Sodium Chloride 0.9% 1, 800 1000 000 ml @ 100 mls/hr IV . Q10H [facility] Rx#:[id number] ceFAZolin 2 gm In Sodium 50 Chloride 0.9% 50 ml @ 100 mls/hr IVPB Q8HR [facility] Rx# :[id number] Oral 400 50 Other: Voiding Method Indwelling Catheter Indwelling Catheter Indwelling Catheter - Exam This is a 74-year-old female in no acute distress. She is alert and oriented at this time. She is quite nauseated and not feeling well. Exam of the lower extremity reveals that her dressing is clean, dry and intact. She has full foot and ankle motion without difficulty or pain. Neurovascular status to the lower extremity is intact. - Labs CBC & Chem 7: 01/04/20 04:13 01/04/20 04:13 Labs: Abnormal Lab Results - Last 24 Hours (Table) 01/03/20 01/03/20 01/03/20 Range/Units 11:20 11:39 17:28 WBC 14.5 H (3.8-10.6) k/uL RBC 3.79 L (3.80-5.40) m/uL Hgb 8.8 L D (11.4-16.0) gm/dL Hct 29.7 L (34.0-46.0) % MCV 78.4 L (80.0-100.0) fL MCH 23.3 L (25.0-35.0) pg MCHC 29.8 L (31.0-37.0) g/dL RDW 16.5 H (11.5-15.5) % Neutrophils # 12.1 H (1.3-7.7) k/uL Sodium (137-145) mmol/L BUN (7-17) mg/dL Glucose (74-99) mg/dL POC Glucose (mg/dL) 207 H 176 H (75-99) mg/dL AST (14-36) U/L Troponin I (0.000-0.034) ng/mL Total Protein (6.3-8.2) g/dL Albumin (3.5-5.0) g/dL 01/03/20 01/04/20 01/04/20 Range/Units 20:05 03:23 04:13 WBC 13.2 H (3.8-10.6) k/uL RBC 3.40 L (3.80-5.40) m/uL Hgb 8.0 L (11.4-16.0) gm/dL Hct 26.8 L (34.0-46.0) % MCV 78.8 L (80.0-100.0) fL MCH 23.6 L (25.0-35.0) pg MCHC 30.0 L (31.0-37.0) g/dL RDW 16.9 H (11.5-15.5) % Neutrophils # 10.5 H (1.3-7.7) k/uL Sodium (137-145) mmol/L BUN (7-17) mg/dL Glucose (74-99) mg/dL POC Glucose (mg/dL) 141 H 130 H (75-99) mg/dL AST (14-36) U/L Troponin I (0.000-0.034) ng/mL Total Protein (6.3-8.2) g/dL Albumin (3.5-5.0) g/dL 01/04/20 01/04/20 01/04/20 Range/Units 04:13 04:13 07:12 WBC (3.8-10.6) k/uL RBC (3.80-5.40) m/uL Hgb (11.4-16.0) gm/dL Hct (34.0-46.0) % MCV (80.0-100.0) fL MCH (25.0-35.0) pg MCHC (31.0-37.0) g/dL RDW (11.5-15.5) % Neutrophils # (1.3-7.7) k/uL Sodium 132 L (137-145) mmol/L BUN 39 H (7-17) mg/dL Glucose 127 H (74-99) mg/dL POC Glucose (mg/dL) 132 H (75-99) mg/dL AST 59 H (14-36) U/L Troponin I 0.089 H* (0.000-0.034) ng/mL Total Protein 5.0 L (6.3-8.2) g/dL Albumin 2.5 L (3.5-5.0) g/dL Assessment and Plan (1) Subtrochanteric fracture of right femur Current Visit: Yes Status: Acute Code(s): S72.21XA - DISPLACED SUBTROCHANTERIC FRACTURE OF RIGHT FEMUR, INIT SNOMED Code(s): 853577975 (2) Fracture of hip Current Visit: Yes Status: Acute Code(s): S72.009A - FRACTURE OF UNSP PART OF NECK OF UNSP FEMUR, INIT SNOMED Code(s): 470287070 (3) Right femoral fracture Current Visit: Yes Status: Acute Code(s): S72.91XA - UNSP FRACTURE OF RIGHT FEMUR, INIT FOR CLOS FX SNOMED Code(s): 44912493 (4) Dizziness, nonspecific Current Visit: Yes Status: Acute Code(s): R42 - DIZZINESS AND GIDDINESS SNOMED Code(s): 116684351 (5) History of open reduction and internal fixation (ORIF) procedure Current Visit: Yes Status: Acute Code(s): Z98.890 - OTHER SPECIFIED POSTPROCEDURAL STATES SNOMED Code(s): 065348623 Plan: The clinical findings are discussed with the patient. We will try to get her nausea under control today. The patient's daughters have been advised of her CT findings. There has not been a conversation with the patient at. Oncology has been consulted. She is nonweightbearing to the right lower extremity. I anticipate need for inpatient rehab or [facility] placement at discharge.
[2020-01-04 11:22] LABS: Glucose,Whole Blood 143 mg/dL (75-99)
[2020-01-04 16:01] LABS: Anisocytosis Slight; Basophils % (A) 0 %; Eosinophils # (A) 0.2 k/uL (0-0.7); Eosinophils % (A) 2 %; HGB 7.5 gm/dL (11.4-16.0); Hypochromasia Marked; Lymphocytes # (A) 1.3 k/uL (1.0-4.8); Lymphocytes % (A) 10 %; MCH 23.3 pg (25.0-35.0); MCV 80.5 fL (80.0-100.0); Mean Platelet Volume 8.1; Monocytes # (A) 0.7 k/uL (0-1.0); Monocytes % (A) 6 %; Neutrophils # (A) 10.7 k/uL (1.3-7.7); Neutrophils % (A) 81 %; Platelet Count 368 k/uL (150-450); RBC 3.23 m/uL (3.80-5.40); RDW 16.5 % (11.5-15.5); WBC 13.2 k/uL (3.8-10.6)
[2020-01-04 17:10] LABS: Glucose,Whole Blood 145 mg/dL (75-99)
[2020-01-04 20:28] LABS: Glucose,Whole Blood 142 mg/dL (75-99)
[2020-01-04] MEDS: SENNOSIDES-DOCUSATE SODIUM 1 EACH TAB PO SCH (21:35)
[2020-01-04] MEDS: ATORVASTATIN 20 MG TAB PO SCH (21:35)
--- NOTE | 2020-01-04 22:21 | P.PN ---
Subjective Progress Note Date: 01/04/20 Principal diagnosis: status post ORIF, rightintertrochanteric fracture This is a 74-year-old patient of Dr. bosch. Chronic stable medical conditions include diabetes, hypertension, rheumatoid arthritis, varicose veins. For last few days patient is joints have been bothering her and affect in different joints including the hips and knees. Patient has been dizzy for about a week. Decreased appetite. For 3 days been having nausea vomiting. She was working on the computer was getting off the chair lost her balance fell down. Injuring her right hip. As a right hip fracture. Denies any chest pain no palpitation. Unable to take her medications and she came in her blood pressures running high over 200 systolic. Her some troponin leak. Very subtle EKG changes.. No abdominal pain. No diarrhea. INVESTIGATIONS, reviewed in the clinical context: White count 14.5 hemoglobin 12 repeat 10.5 today to see 53 potassium 4.1 creatinine 0.68 Troponin I 0.043, 0.048 EKG tracing personally reviewed by me-Q waves in inferior leads Chest x-ray film-questionable infiltrate versus interstitial lung finding. Right hip x-ray-acute subtrochanteric right femur fracture 2-D echo-EF 60-65%, concentric LVH, moderate pulmonic regurgitation 01/03/2020 Patient is status post Right hipsubtrochanteric fracture open reduction and intramedullary nailing using long Synthes IT nail on 01/02/2020 patient was found to have pulmonary interstitial infiltrates seen on baseline CXR, she had a HRCT done earlier today which revealed a 4 x 4 and a half c entimeter right breast mass as well as 3.2 x 2.9 cm right axillary lymph node. This also revealed several bilateral lung nodules, the largest of which was 2.5 cm. oncology was consulted . recommends workup including mammogram ultrasound and PET scan which can be done as an outpatient. Pain is controlled with medications. Complains of nausea in the morning. currently afebrile. no complaints of abdominal pain. No diarrhea. No vomiting. Denied any chest pain or shortness of breath. 01/04/2020 Patient is currently lying in the becomfortably. More awake and oriented. Overnight he was confused. CT head and CT angiogram was done showed no evidence of acute CVA. Found to have osteolytic lesions in the skullbone. No evidence of parenchymal involvement. Patient says that she feels better today otherwise. Nausea improving. Discussed with the patient and family at bedside regarding thenew diagnosis of likely metastatic breast cancer with metastases to lung and bone. Patient was seen by oncology and recommended to follow as an outpatient for further workup and treatment options. hemoglobin is 8.0. Sodium 132. Troponin level 0.089. Patient is not able to get out of bed to participate in physical therapy. Encourage ambulation and possible discharge to extended care facility. Active Medications Hydrocodone Bitart/Acetaminophen (Benge 5-325) 1 each PO Q6HR PRN PRN Reason: Pain Scale 1 to 5 Last Admin: 01/03/20 15:58 Dose: 1 each Documented by: Hydrocodone Bitart/Acetaminophen (Benge 5-325) 2 each PO Q6HR PRN PRN Reason: Pain Scale 6 to 10 Clonidine HCl (Catapres-Tts 0.1mg Patch) 1 patch TRANSDERM Q7D [facility] Last Admin: 01/01/20 10:59 Dose: 1 patch Documented by: Enoxaparin Sodium (Lovenox) 40 mg SQ DAILY [facility] Last Admin: 01/03/20 09:12 Dose: 40 mg Documented by: Lisinopril/HCTZ (Zestoretic 10-12.5) 1 each PO BID [facility] Last Admin: 01/03/20 21:12 Dose: Not Given Documented by: Hydromorphone HCl (Dilaudid) 1 mg IVP Q4HR PRN PRN Reason: Pain Last Admin: 01/03/20 16:07 Dose: 1 mg Documented by: Hydromorphone HCl (Dilaudid) 0.125 mg IVP Q3HR PRN PRN Reason: Pain Scale 1 to 3 Hydromorphone HCl (Dilaudid) 0.25 mg IVP Q3HR PRN PRN Reason: Pain Scale 4 to 6 Hydromorphone HCl (Dilaudid) 0.5 mg IVP Q3HR PRN PRN Reason: Pain Scale 7 to 10 Last Admin: 01/02/20 18:24 Dose: 0.5 mg Documented by: Promethazine HCl 25 mg/ Sodium (Chloride) 51 mls @ 200 mls/hr IVPB Q6HR PRN PRN Reason: Nausea Last Admin: 01/01/20 08:52 Dose: 200 mls/hr Documented by: Sodium Chloride (Saline 0.9%) 1,000 mls @ 100 mls/hr IV .Q10H [facility] Last Admin: 01/03/20 21:09 Dose: 100 mls/hr Documented by: Lactated Ringer's (Lactated Ringers) 1,000 mls @ 100 mls/hr IV .Q10H [facility] Last Admin: 01/03/20 21:12 Dose: Not Given Documented by: Magnesium Hydroxide (Milk Of Magnesia) 2,400 mg PO DAILY PRN PRN Reason: Constipation Metoclopramide HCl (Reglan) 5 mg IVP Q6HR PRN PRN Reason: Nausea And Vomiting Last Admin: 01/03/20 15:58 Dose: 5 mg Documented by: Metoprolol Tartrate (Lopressor) 50 mg PO TID [facility] Last Admin: 01/03/20 15:59 Dose: 50 mg Documented by: Naloxone HCl (Narcan) 0.2 mg IV Q2M PRN PRN Reason: Opioid Reversal Ondansetron HCl (Zofran) 4 mg IVP Q6HR PRN PRN Reason: Nausea And Vomiting Last Admin: 01/03/20 09:19 Dose: 4 mg Documented by: Potassium Phos/Sodium Phos (Neutra-Phos Packet) 1 each PO BID [facility] Last Admin: 01/03/20 21:12 Dose: Not Given Documented by: Senna/Docusate Sodium (Senokot-S) 2 each PO HS [facility] Last Admin: 01/03/20 21:12 Dose: Not Given Documented by: Temazepam (Restoril) 15 mg PO HS PRN PRN Reason: Insomnia Objective - Vital Signs Vital signs: Vital Signs Temp 98.4 F 01/04/20 07:51 Pulse 82 01/04/20 07:51 Resp 18 01/04/20 07:51 BP 124/64 01/04/20 07:51 Pulse Ox 94 L 01/04/20 07:51 Intake & Output 01/03/20 01/04/20 01/04/20 18:59 06:59 18:59 Intake Total 1250 1050 Balance 1250 1050 Intake: Intake, IV Titration 850 1000 Amount Sodium Chloride 0.9% 1, 800 1000 000 ml @ 100 mls/hr IV . Q10H [facility] Rx#:[id number] ceFAZolin 2 gm In Sodium 50 Chloride 0.9% 50 ml @ 100 mls/hr IVPB Q8HR [facility] Rx# :[id number] Oral 400 50 Other: Voiding Method Indwelling Catheter Indwelling Catheter Indwelling Catheter - Exam GENERAL: Laying in bed, awake EYES: Pupils equal. Conjunctiva normal. HEENT: External appearance of nose and ears normal, oral cavity grossly normal. NECK: JVD not raised; masses not palpable. HEART: First and second heart sounds are normal; no edema. LUNGS: Respiratory rate normal; slightly decreased breath sound. ABDOMEN: Soft, nontender, liver spleen not palpable, no masses palpable. PSYCH: Alert and oriented x3; mood and affect normal. MUSCULOSKELETAL: Evidence of OA in the hands. right hip surgical site bandaged. - Labs CBC & Chem 7: 01/04/20 15:34 01/04/20 04:13 Labs: Abnormal Lab Results - Last 24 Hours (Table) 01/03/20 01/03/20 01/04/20 Range/Units 17:28 20:05 03:23 WBC (3.8-10.6) k/uL RBC (3.80-5.40) m/uL Hgb (11.4-16.0) gm/dL Hct (34.0-46.0) % MCV (80.0-100.0) fL MCH (25.0-35.0) pg MCHC (31.0-37.0) g/dL RDW (11.5-15.5) % Neutrophils # (1.3-7.7) k/uL Sodium (137-145) mmol/L BUN (7-17) mg/dL Glucose (74-99) mg/dL POC Glucose (mg/dL) 176 H 141 H 130 H (75-99) mg/dL AST (14-36) U/L Troponin I (0.000-0.034) ng/mL Total Protein (6.3-8.2) g/dL Albumin (3.5-5.0) g/dL 01/04/20 01/04/20 01/04/20 Range/Units 04:13 04:13 04:13 WBC 13.2 H (3.8-10.6) k/uL RBC 3.40 L (3.80-5.40) m/uL Hgb 8.0 L (11.4-16.0) gm/dL Hct 26.8 L (34.0-46.0) % MCV 78.8 L (80.0-100.0) fL MCH 23.6 L (25.0-35.0) pg MCHC 30.0 L (31.0-37.0) g/dL RDW 16.9 H (11.5-15.5) % Neutrophils # 10.5 H (1.3-7.7) k/uL Sodium 132 L (137-145) mmol/L BUN 39 H (7-17) mg/dL Glucose 127 H (74-99) mg/dL POC Glucose (mg/dL) (75-99) mg/dL AST 59 H (14-36) U/L Troponin I 0.089 H* (0.000-0.034) ng/mL Total Protein 5.0 L (6.3-8.2) g/dL Albumin 2.5 L (3.5-5.0) g/dL 01/04/20 01/04/20 Range/Units 07:12 11:20 WBC (3.8-10.6) k/uL RBC (3.80-5.40) m/uL Hgb (11.4-16.0) gm/dL Hct (34.0-46.0) % MCV (80.0-100.0) fL MCH (25.0-35.0) pg MCHC (31.0-37.0) g/dL RDW (11.5-15.5) % Neutrophils # (1.3-7.7) k/uL Sodium (137-145) mmol/L BUN (7-17) mg/dL Glucose (74-99) mg/dL POC Glucose (mg/dL) 132 H 143 H (75-99) mg/dL AST (14-36) U/L Troponin I (0.000-0.034) ng/mL Total Protein (6.3-8.2) g/dL Albumin (3.5-5.0) g/dL Assessment and Plan Assessment: -Right breast mass with right axillary LAD and multiple lung nodules. likely metastatic breast cancer. -Acute subtrochanteric right femur fracture secondary to fall-status post ORIF -acute postoperative blood loss anemia and anemia of chronic disease. -Rheumatoid arthritis, chronic -Obesity BMI 30.3 -Hypertensive heart disease -Moderate pulmonic regurgitation -Hypertensive urgency -Diabetes mellitus type 2 on oral hypoglycemic -DVT prophylaxis On Lovenox subcu Plan: patient was seen by oncology due to right breast mass and multiple pulmonary nodules. Recommends outpatient workup in the next 1-2 weeks. Chest Continue current medication treatment plan. Discussed with the patient and her daughter at bedside. Time with Patient: Greater than 30
[2020-01-05] MEDS: HYDROcodone/APAP 5-325MG 1 EACH TAB PO PRN ×3 (02:49→14:52)
[2020-01-05] MEDS: LACTATED RINGERS 1,000 ML IV SCH ×2 (02:53→13:42)
[2020-01-05 06:58] LABS: Glucose,Whole Blood 130 mg/dL (75-99)
[2020-01-05] MEDS: ENOXAPARIN 40 MG/0.4 ML SYRINGE SQ SCH (07:43)
[2020-01-05] MEDS: POTAS-SOD-PHOS 278-164-250 MG 1 EACH PACKET PO SCH ×2 (07:43→22:52)
[2020-01-05] MEDS: ASPIRIN 325 MG TAB PO SCH (07:43)
[2020-01-05] MEDS: METOPROLOL TARTRATE 50 MG TAB PO SCH ×3 (07:43→22:52)
[2020-01-05] MEDS: LISINOPRIL-HCTZ 10-12.5 MG 1 EACH TAB PO SCH ×2 (07:43→22:51)
--- NOTE | 2020-01-05 09:12 | P.PN ---
Subjective Progress Note Date: 01/05/20 Principal diagnosis: Subtrochanteric fracture right femur. Status post open reduction internal fixation right femur with long IT nail. This is a 74-year-old female with history of subtrochanteric fracture of the right femur. She is postop open reduction internal fixation with long IT nail right femur on 01/02/2020. She she is stable from an orthopedic standpoint. She had an episode of mental status changes last evening as well as shortness of breath. 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 The patient continues to have some nausea today. She has declined physical therapy. Objective - Vital Signs Vital signs: Vital Signs Temp 98.4 F 01/05/20 07:41 Pulse 80 01/05/20 07:41 Resp 16 01/05/20 07:41 BP 119/71 01/05/20 07:41 Pulse Ox 100 01/05/20 07:41 Intake & Output 01/04/20 01/05/20 01/05/20 18:59 06:59 18:59 Intake Total 1400 200 Output Total 700 Balance 1400 -500 Intake: Intake, IV Titration 800 200 Amount Sodium Chloride 0.9% 1, 800 200 000 ml @ 100 mls/hr IV . Q10H [facility] Rx#:[id number] Oral 600 Output: Urine 700 Other: Voiding Method Indwelling Catheter Indwelling Catheter - Exam This is a 74-year-old female in no acute distress. She is alert and oriented at this time. She is quite nauseated and not feeling well. Exam of the lower extremity reveals that her dressing is clean, dry and intact. She has full foot and ankle motion without difficulty or pain. Neurovascular status to the lower extremity is intact. - Labs CBC & Chem 7: 01/04/20 15:34 01/04/20 04:13 Labs: Abnormal Lab Results - Last 24 Hours (Table) 01/04/20 01/04/20 01/04/20 Range/Units 11:20 15:34 17:09 WBC 13.2 H (3.8-10.6) k/uL RBC 3.23 L (3.80-5.40) m/uL Hgb 7.5 L (11.4-16.0) gm/dL Hct 26.0 L (34.0-46.0) % MCH 23.3 L (25.0-35.0) pg MCHC 29.0 L (31.0-37.0) g/dL RDW 16.5 H (11.5-15.5) % Neutrophils # 10.7 H (1.3-7.7) k/uL POC Glucose (mg/dL) 143 H 145 H (75-99) mg/dL 01/04/20 01/05/20 Range/Units 20:24 06:56 WBC (3.8-10.6) k/uL RBC (3.80-5.40) m/uL Hgb (11.4-16.0) gm/dL Hct (34.0-46.0) % MCH (25.0-35.0) pg MCHC (31.0-37.0) g/dL RDW (11.5-15.5) % Neutrophils # (1.3-7.7) k/uL POC Glucose (mg/dL) 142 H 130 H (75-99) mg/dL Assessment and Plan (1) Subtrochanteric fracture of right femur Current Visit: Yes Status: Acute Code(s): S72.21XA - DISPLACED S UBTROCHANTERIC FRACTURE OF RIGHT FEMUR, INIT SNOMED Code(s): 412826097 (2) Fracture of hip Current Visit: Yes Status: Acute Code(s): S72.009A - FRACTURE OF UNSP PART OF NECK OF UNSP FEMUR, INIT SNOMED Code(s): 523438516 (3) Right femoral fracture Current Visit: Yes Status: Acute Code(s): S72.91XA - UNSP FRACTURE OF RIGHT FEMUR, INIT FOR CLOS FX SNOMED Code(s): 06513862 (4) Dizziness, nonspecific Current Visit: Yes Status: Acute Code(s): R42 - DIZZINESS AND GIDDINESS SNOMED Code(s): 979622855 (5) History of open reduction and internal fixation (ORIF) procedure Current Visit: Yes Status: Acute Code(s): Z98.890 - OTHER SPECIFIED POSTPROCEDURAL STATES SNOMED Code(s): 957571963 Plan: The clinical findings are discussed with the patient. The patient's daughters have been advised of her CT findings. There has not been a conversation with shima harrington patient at. Oncology has been consulted. She is nonweightbearing to the right lower extremity. I anticipate need for inpatient rehab or care home placement at discharge.
[2020-01-05] MEDS: ONDANSETRON 4 MG/2 ML VIAL IVP PRN ×2 (10:33→16:58)
--- NOTE | 2020-01-05 10:55 | P.PN ---
Subjective Progress Note Date: 01/05/20 Principal diagnosis: rt femur fracture, s/p open reduction with intramedullary nailing In f/u today pt is having nausea from pain meds, pain is not severe. Denies fever, NIGEL, SOB, abd pain, no recent BM. She does not feel she could lay flat for imaging studies. Objective - Vital Signs Vital signs: Vital Signs Temp 98.4 F 01/05/20 07:41 Pulse 80 01/05/20 07:41 Resp 16 01/05/20 07:41 BP 119/71 01/05/20 07:41 Pulse Ox 100 01/05/20 07:41 Intake & Output 01/04/20 01/05/20 01/05/20 18:59 06:59 18:59 Intake Total 1400 200 Output Total 700 Balance 1400 -500 Intake: Intake, IV Titration 800 200 Amount Sodium Chloride 0.9% 1, 800 200 000 ml @ 100 mls/hr IV . Q10H [facility] Rx#:[id number] Oral 600 Output: Urine 700 Other: Voiding Method Indwelling Catheter Indwelling Catheter - Constitutional General appearance: Present: cooperative, mild distress, obese - EENT Eyes: Present: anicteric sclerae, EOMI ENT: Present: hearing grossly normal - Neck Neck: Absent: lymphadenopathy - Respiratory Respiratory: bilateral: CTA - Cardiovascular Rhythm: regular Heart sounds: normal: S1, S2 Abnormal Heart Sounds: Absent: systolic murmur, diastolic murmur, rub, S3 Gallop, S4 Gallop, click, other - Peripheral edema leg Peripheral Edema: right: Trace, left: None (compression in palce) - Gastrointestinal General gastrointestinal: Present: normal bowel sounds, soft - Neurologic Neurologic: Present: CNII-XII intact, focal deficits - Musculoskeletal Musculoskeletal: Present: generalized weakness - Psychiatric Psychiatric: Present: A&O x's 3, appropriate affect, intact judgment & insight - Labs CBC & Chem 7: 01/04/20 15:34 01/04/20 04:13 Labs: Abnormal Lab Results - Last 24 Hours (Table) 01/04/20 01/04/20 01/04/20 Range/Units 11:20 15:34 17:09 WBC 13.2 H (3.8-10.6) k/uL RBC 3.23 L (3.80-5.40) m/uL Hgb 7.5 L (11.4-16.0) gm/dL Hct 26.0 L (34.0-46.0) % MCH 23.3 L (25.0-35.0) pg MCHC 29.0 L (31.0-37.0) g/dL RDW 16.5 H (11.5-15.5) % Neutrophils # 10.7 H (1.3-7.7) k/uL POC Glucose (mg/dL) 143 H 145 H (75-99) mg/dL 01/04/20 01/05/20 Range/Units 20:24 06:56 WBC (3.8-10.6) k/uL RBC (3.80-5.40) m/uL Hgb (11.4-16.0) gm/dL Hct (34.0-46.0) % MCH (25.0-35.0) pg MCHC (31.0-37.0) g/dL RDW (11.5-15.5) % Neutrophils # (1.3-7.7) k/uL POC Glucose (mg/dL) 142 H 130 H (75-99) mg/dL Assessment and Plan (1) Fracture of hip Narrative/Plan: Admitted for the same, s/p Orthopedic intervention. Anticipate rehabilitation Current Visit: Yes Status: Acute Priority: High Code(s): S72.009A - FRACTURE OF UNSP PART OF NECK OF UNSP FEMUR, INIT SNOMED Code(s): 727350041 (2) Breast mass Current Visit: Yes Status: Acute Priority: High Code(s): N63.0 - UNSPECIFIED LUMP IN UNSPECIFIED BREAST SNOMED Code(s): 72525013 (3) Bone lesion Current Visit: Yes Status: Acute Priority: High Code(s): M89.9 - DISORDER OF BONE, UNSPECIFIED SNOMED Code(s): 50101626 (4) Microcytic hypochromic anemia Narrative/Plan: Anemia work up ordered. If iron deficient f/u with GI would be appropriate. Can be done outpatient. Will request supplementation if indicated. Current Visit: Yes Status: Acute Priority: High Code(s): D50.9 - IRON DEFICIENCY ANEMIA, UNSPECIFIED SNOMED Code(s): 81207734 Plan: Pt presentation highly suggestive of metastatic breast cancer (based on info thus far). Pt is s/p rt hip fracture repair with specimen sent for pathology. Pending findings. If non-diagnostic breast biopsy will be requested. Need specimen for HR, NGS and PD-L1 testing. As pt is s/p hip repair she does not feel she could lay flat to complete staging imaging at this time. We will postpone imaging for now. Tumor markers ordered Symptomatic from cranial mass? Will discuss case with Rad Onc for their opinion, may consult or refer to outpatient Will contact daughter per pt request to update her on plan Time with Patient: Greater than 30 (>35min counseling and coordinating care)
[2020-01-05 11:45] LABS: Glucose,Whole Blood 128 mg/dL (75-99)
[2020-01-05] MEDS: SODIUM CHLORIDE 0.9% 1,000 ML IV SCH (12:35)
[2020-01-05 16:48] LABS: Ferritin 97.8 ng/mL (10.0-291.0)
[2020-01-05 16:49] LABS: % Iron Saturation 7.12 (12.00-45.00)
[2020-01-05 17:28] LABS: Glucose,Whole Blood 136 mg/dL (75-99)
[2020-01-05 18:43] LABS: Cancer Antigen 153 494.1 U/mL (0.0-32.3)
--- NOTE | 2020-01-05 19:40 | PN ---
PROGRESS NOTE DATE OF SERVICE: 01/05/2020 This 74-year-old woman who was admitted with acute subtrochanteric right femoral fracture after a fall had ORIF. The patient also had a CT scan of the brain done which showed some osteolytic lesions and a right breast mass with right axilla lymphadenopathy and multiple lung nodules. Metastatic breast cancer was also suspected. Hematology/Oncology has been consulted. The patient also has gait dysfunction. ECF rehab is also being planned. Patient is being closely monitored at this time. Past medical history reviewed. REVIEW OF SYSTEMS: CARDIOVASCULAR SYSTEM: No angina, palpitations. RESPIRATORY SYSTEM: As mentioned earlier. GI: As mentioned earlier. : No dysuria or retention. NERVOUS SYSTEM: As mentioned earlier. CURRENT MEDICATIONS: Reviewed. They include: 1. [place] 5 mg q.6 p.r.n. 2. Aspirin 325 mg daily. 3. Lipitor 20 mg at bedtime. 4. Catapres TTS patch. 5. Lovenox 40 mg subcutaneously daily. 6. Zestoretic. 7. Dilaudid. 8. Lactated Ringer's. 9. Lopressor. 10.Narcan. 11.Zofran. 12.Restoril. PHYSICAL EXAMINATION: Patient is alert, oriented x3. Pulse 86, blood pressure 133/72, respiration 18, temperature 98.1, pulse ox 98% on room air. HEENT: Conjunctivae normal. NECK: No jugular venous distention. CARDIOVASCULAR SYSTEM: S1, S2 muffled. RESPIRATORY SYSTEM: Breath sounds diminished at the bases. A few scattered rhonchi and crackles. ABDOMEN: Soft, non-tender. LEGS: Status post surgery. NERVOUS SYSTEM: No focal deficit. Diffusely weak. LABS: WBC 13.2, hemoglobin 8 and sodium 132. Troponin 0.089. ASSESSMENT: 1. Acute subtrochanteric right femur fracture secondary to fall, status post open reduction internal fixation. 2. Possible right breast mass with right axillary lymphadenopathy, multiple lung nodules and also metastatic breast cancer. 3. 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 4. Troponin 0.089, indeterminate. 5. Acute postoperative blood loss anemia and anemia of chronic disease. 6. Rheumatoid arthritis, chronic. 7. Obesity with body mass index 30.3. 8. Hypertensive heart disease. 9. Moderate pulmonary regurgitation. 10.Hypertensive urgency. 11.Diabetes mellitus, type 2, on oral hypoglycemic agents. 12.Deep venous thrombosis prophylaxis. RECOMMENDATIONS AND DISCUSSION: In this 74-year-old woman who presented with multiple complex medical issues, we will monitor the patient closely, continue the current medications, continue symptomatic treatment. I recommend repeat labs and neurology consultation. Otherwise, closely follow with Oncology. Follow with multiple consultants. PT/OT evaluation. Prognosis guarded because of multiple complex medical issues. Further recommendations to follow. MMODL / IJN: [id number] /
[2020-01-05] MEDS ORDERED: traMADol 50 MG TAB PO PRN (20:59)
[2020-01-05] MEDS ORDERED: traMADol 50 MG TAB PO SCH ×2 (21:00)
[2020-01-05] MEDS: METOCLOPRAMIDE 5 MG/ML 2 ML VIAL IVP PRN (21:12)
[2020-01-05] MEDS: traMADol 50 MG TAB PO PRN (21:20)
[2020-01-05] MEDS: ATORVASTATIN 20 MG TAB PO SCH (22:51)
[2020-01-05] MEDS: SENNOSIDES-DOCUSATE SODIUM 1 EACH TAB PO SCH (22:52)
[2020-01-06] MEDS: traMADol 50 MG TAB PO PRN (04:00)
[2020-01-06 06:50] LABS: Glucose,Whole Blood 144 mg/dL (75-99)
[2020-01-06 08:03] LABS: Anisocytosis Slight; Basophils % (A) 0 %; Eosinophils # (A) 0.1 k/uL (0-0.7); Eosinophils % (A) 2 %; HCT 24.2 % (34.0-46.0); HGB 7.2 gm/dL (11.4-16.0); Hypochromasia Marked; Lymphocytes # (A) 1.1 k/uL (1.0-4.8); Lymphocytes % (A) 13 %; MCH 23.9 pg (25.0-35.0); MCHC 29.5 g/dL (31.0-37.0); MCV 81.1 fL (80.0-100.0); Mean Platelet Volume 7.6; Monocytes # (A) 0.5 k/uL (0-1.0); Monocytes % (A) 6 %; Neutrophils # (A) 6.7 k/uL (1.3-7.7); Neutrophils % (A) 78 %; Platelet Count 382 k/uL (150-450); RBC 2.99 m/uL (3.80-5.40); RDW 17.1 % (11.5-15.5); WBC 8.7 k/uL (3.8-10.6)
[2020-01-06 08:09] LABS: Calcium 8.9 mg/dL (8.4-10.2)
[2020-01-06] MEDS: LISINOPRIL-HCTZ 10-12.5 MG 1 EACH TAB PO SCH ×2 (08:23→20:46)
[2020-01-06] MEDS: ASPIRIN 325 MG TAB PO SCH (08:23)
[2020-01-06] MEDS: HEPARIN SODIUM,PORCINE 5,000 UNIT/ML 1 ML VIAL SQ SCH ×2 (08:23→20:46)
[2020-01-06] MEDS: POTAS-SOD-PHOS 278-164-250 MG 1 EACH PACKET PO SCH ×2 (08:23→20:46)
[2020-01-06] MEDS: METOPROLOL TARTRATE 50 MG TAB PO SCH ×3 (08:23→20:46)
[2020-01-06] MEDS: IOPAMIDOL CONTRAST (ORAL USE) VIAL PO PRN ×2 (11:51→12:56)
--- NOTE | 2020-01-06 11:51 | P.PN ---
Subjective Progress Note Date: 01/06/20 Principal diagnosis: rt femur fracture, most consistent with pathological fracture, s/p open reduction with intramedullary nailing, suspect breast cancer In f/u today pt continues to have mild to moderate nausea from pain meds, pain is more severe today, it is at hip. Denies fever, NIGEL, SOB, abd pain. Objective - Vital Signs Vital signs: Vital Signs Temp 98 F 01/06/20 07:25 Pulse 93 01/06/20 07:25 Resp 16 01/06/20 08:23 BP 150/67 01/06/20 07:25 Pulse Ox 92 L 01/06/20 07:25 Intake & Output 01/05/20 01/06/20 01/06/20 18:59 06:59 18:59 Intake Total 800 400 Output Total 700 Balance 800 -700 400 Intake: Intake, IV Titration 800 Amount Sodium Chloride 0.9% 1, 800 000 ml @ 100 mls/hr IV . Q10H [facility] Rx#:[id number] Oral 400 Output: Urine 700 Other: Voiding Method Indwelling Catheter Indwelling Catheter Indwelling Catheter - Constitutional General appearance: Present: cooperative, mild distress, obese - EENT Eyes: Present: anicteric sclerae, EOMI ENT: Present: hearing grossly normal - Respiratory Respiratory: bilateral: CTA - Cardiovascular Heart sounds: normal: S1, S2 - Peripheral edema leg Peripheral Edema: right: 1+, left: None - Gastrointestinal General gastrointestinal: Present: normal bowel sounds, soft - Neurologic Neurologic: Present: CNII-XII intact - Musculoskeletal Musculoskeletal: Present: generalized weakness - Psychiatric Psychiatric Comment(s): not certain how much pt is understanding her situation, info has to continually be reinforced Psychiatric: Present: A&O x's 3, appropriate affect - Allied health notes Allied health notes reviewed: case management - Labs CBC & Chem 7: 01/06/20 07:18 01/06/20 07:18 Labs: Abnormal Lab Results - Last 24 Hours (Table) 01/05/20 01/05/20 01/05/20 Range/Units 10:59 10:59 11:39 RBC (3.80-5.40) m/uL Hgb (11.4-16.0) gm/dL Hct (34.0-46.0) % MCH (25.0-35.0) pg MCHC (31.0-37.0) g/dL RDW (11.5-15.5) % Sodium (137-145) mmol/L BUN (7-17) mg/dL Glucose (74-99) mg/dL POC Glucose (mg/dL) 128 H (75-99) mg/dL Iron 20 L (50-170) ug/dL % Saturation 7.12 L (12.00-45.00) CA 15-3 Antigen 494.1 H (0.0-32.3) U/mL CA 27-29 877.2 H (0.0-38.5) U/mL 01/05/20 01/06/20 01/06/20 Range/Units 17:06 06:47 07:18 RBC 2.99 L (3.80-5.40) m/uL Hgb 7.2 L (11.4-16.0) gm/dL Hct 24.2 L (34.0-46.0) % MCH 23.9 L (25.0-35.0) pg MCHC 29.5 L (31.0-37.0) g/dL RDW 17.1 H (11.5-15.5) % Sodium (137-145) mmol/L BUN (7-17) mg/dL Glucose (74-99) mg/dL POC Glucose (mg/dL) 136 H 144 H (75-99) mg/dL Iron (50-170) ug/dL % Saturation (12.00-45.00) CA 15-3 Antigen (0.0-32.3) U/mL CA 27-29 (0.0-38.5) U/mL 01/06/20 Range/Units 07:18 RBC (3.80-5.40) m/uL Hgb (11.4-16.0) gm/dL Hct (34.0-46.0) % MCH (25.0-35.0) pg MCHC (31.0-37.0) g/dL RDW (11.5-15.5) % Sodium 134 L (137-145) mmol/L BUN 32 H (7-17) mg/dL Glucose 130 H (74-99) mg/dL POC Glucose (mg/dL) (75-99) mg/dL Iron (50-170) ug/dL % Saturation (12.00-45.00) CA 15-3 Antigen (0.0-32.3) U/mL CA 27-29 (0.0-38.5) U/mL Assessment and Plan (1) Fracture of hip Narrative/Plan: Admitted for the same, s/p Orthopedic intervention. Anticipate rehabilitation. Briefly discussed case with Ortho PA. Circumstances surrounding fracture are more consistent with pathological cause Discussed case with Pathologist-specimen does appear to have malignant cells and it is felt diagnosis can be obtained. Current Visit: Yes Status: Acute Priority: High Code(s): S72.009A - FRACTURE OF UNSP PART OF NECK OF UNSP FEMUR, INIT SNOMED Code(s): 233375098 (2) Breast mass Current Visit: Yes Status: Acute Priority: High Code(s): N63.0 - UNSPECIFIED LUMP IN UNSPECIFIED BREAST SNOMED Code(s): 45284593 (3) Bone lesion Current Visit: Yes Status: Acute Priority: High Code(s): M89.9 - DISORDER OF BONE, UNSPECIFIED SNOMED Code(s): 92401292 (4) Microcytic hypochromic anemia Narrative/Plan: Iron deficiency after lab testing. IV iron ordered. GI work up in the future may be in order Current Visit: Yes Status: Acute Priority: High Code(s): D50.9 - IRON DEFICIENCY ANEMIA, UNSPECIFIED SNOMED Code(s): 40086808 Plan: Spoke with pt daughter and updated her on the plan. Skidder spoke with rehab facility. Testing encouraged to be done outpatient and not during rehab. Have requesting staging CT CAP with contrast and NM bone scan. Will see if pt can tolerate. If not, then have to plan for staging scans post rehab. Administration of oral medications for treatment of cancer is also not acceptable to rehab facility. Will see what treatment plan would be, discuss with rehab at that time. If unacceptable then, will postpone cancer treatment until discharged from rehab. Tumor markers reviewed and are elevated Contacting Rad Onc to review case. Pt could benefit from XRT to painful femur and possibly the skull lesion. attests: I have performed H&P and developed impression and plan of care for patient, discussed with dictator. I agree with dictated note, documented as a scribe Time with Patient: Greater than 30
[2020-01-06] MEDS ORDERED: SODIUM FERRIC GLUCONAT-SUCROSE 125 MG in SODIUM CHLORIDE 0.9% 100 ML IVPB ONE (12:00)
--- NOTE | 2020-01-06 12:25 | P.PN ---
Subjective HISTORY OF PRESENTING ILLNESS This is a pleasant 74-year-old female past medical history significant for hypertension, diabetes mellitus, rheumatoid arthritis, former nicotine dependence and obesity. She denies prior history of coronary artery disease and does not follow in the office with a inspector filter tip for any reason. She is seen and examined resting comfortably in bed in no acute distress. She complains of discomfort in the right hip region. She denies chest pain, dizziness, shortness of breath or palpitations. She is currently maintaining sinus mechanism. Blood pressure 150/67 heart rate 93 afebrile maintaining oxygen saturation on room air. Laboratory data reviewed, WBC 8.7, hemoglobin 7.2, platelets 382, sodium 134, potassium 4.0, creatinine 0.81, CA 153 antigen 494, [place] [address] of the brain obtained revealing osteolytic lesions. Currently awaiting PET scan. PHYSICAL EXAMINATION CONSTITUTIONAL: No apparent distress. HEENT: Head is normocephalic. Pupils are equal, round. Sclerae anicteric. Mucous membranes of the mouth are moist. No JVD. No carotid bruit. CHEST EXAMINATION: Lungs are clear to auscultation. No chest wall tenderness is noted on palpation or with deep breathing. HEART EXAMINATION: Regular rate and rhythm. S1, S2 heard. No murmurs, gallops or rub. EXTREMITIES: 2+ peripheral pulses, no lower extremity edema and no calf tenderness. ASSESSMENT Left intertrochanteric femur fracture status post repair Paroxysmal atrial fibrillation Suspect metastatic breast cancer Anemia Mildly elevated troponin with no rise and fall pattern, no symptoms of angina. No indicative of an acute coronary syndrome. Dizziness, telemetry tracings have been unremarkable Hypertension Diabetes mellitus PLAN Stable from a cardiac perspective. Flat troponin elevation is not indicative of an acute coronary syndrome. Hold on long-term anticoagulation at this time given her anemia and oncology workup. We will follow as needed, please call with further questions or concerns. Follow-up in the office with Dr. Florez upon discharge. Nurse Practitioner note has been reviewed, I agree with a documented findings and plan of care. Patient was seen and examined. Objective - Vital Signs Vital signs: Vital Signs Temp 98 F 01/06/20 07:25 Pulse 93 01/06/20 07:25 Resp 16 01/06/20 08:23 BP 150/67 01/06/20 07:25 Pulse Ox 92 L 01/06/20 07:25 Intake & Output 01/05/20 01/06/20 01/06/20 18:59 06:59 18:59 Intake Total 800 400 Output Total 700 Balance 800 -700 400 Intake: Intake, IV Titration 800 Amount Sodium Chloride 0.9% 1, 800 000 ml @ 100 mls/hr IV . Q10H [facility] Rx#:[id number] Oral 400 Output: Urine 700 Other: Voiding Method Indwelling Catheter Indwelling Catheter Indwelling Catheter - Labs CBC & Chem 7: 01/06/20 07:18 01/06/20 07:18 Labs: Abnormal Lab Results - Last 24 Hours (Table) 01/05/20 01/05/20 01/05/20 Range/Units 10:59 10:59 17:06 RBC (3.80-5.40) m/uL Hgb (11.4-16.0) gm/dL Hct (34.0-46.0) % MCH (25.0-35.0) pg MCHC (31.0-37.0) g/dL RDW (11.5-15.5) % Sodium (137-145) mmol/L BUN (7-17) mg/dL Glucose (74-99) mg/dL POC Glucose (mg/dL) 136 H (75-99) mg/dL Iron 20 L (50-170) ug/dL % Saturation 7.12 L (12.00-45.00) CA 15-3 Antigen 494.1 H (0.0-32.3) U/mL CA 27-29 877.2 H (0.0-38.5) U/mL 01/06/20 01/06/20 01/06/20 Range/Units 06:47 07:18 07:18 RBC 2.99 L (3.80-5.40) m/uL Hgb 7.2 L (11.4-16.0) gm/dL Hct 24.2 L (34.0-46.0) % MCH 23.9 L (25.0-35.0) pg MCHC 29.5 L (31.0-37.0) g/dL RDW 17.1 H (11.5-15.5) % Sodium 134 L (137-145) mmol/L BUN 32 H (7-17) mg/dL Glucose 130 H (74-99) mg/dL POC Glucose (mg/dL) 144 H (75-99) mg/dL Iron (50-170) ug/dL % Saturation (12.00-45.00) CA 15-3 Antigen (0.0-32.3) U/mL CA 27-29 (0.0-38.5) U/mL
[2020-01-06] MEDS: ONDANSETRON 4 MG/2 ML VIAL IVP PRN (13:21)
--- NOTE | 2020-01-06 15:04 | P.PN ---
Subjective Progress Note Date: 01/06/20 Principal diagnosis: Status post right femur long IT nail This is a 74 year-old female post ORIF right femur with long IT nail. This is post-op day 4. The patient was evaluated at the bedside today. She is having some nausea this morning. The patient denies vomiting, abdominal pain, chest pain, or shortness of breath this morning. She states her pain is controlled at this time but is having increased pain in the leg with any movement. The patient has been up with physical therapy but is progressing slowly. Objective - Vital Signs Vital signs: Vital Signs Temp 98 F 01/06/20 07:25 Pulse 93 01/06/20 07:25 Resp 16 01/06/20 08:23 BP 150/67 01/06/20 07:25 Pulse Ox 92 L 01/06/20 07:25 Intake & Output 01/05/20 01/06/20 01/06/20 18:59 06:59 18:59 Intake Total 800 900 Output Total 700 Balance 800 -700 900 Intake: Intake, IV Titration 800 Amount Sodium Chloride 0.9% 1, 800 000 ml @ 100 mls/hr IV . Q10H [facility] Rx#:[id number] Oral 900 Output: Urine 700 Other: Voiding Method Indwelling Catheter Indwelling Catheter Indwelling Catheter - Exam The patient does not appear in acute distress. Alert and orientated x2. Dressing is clean dry and intact. Incision appears fine with no erythema or active drainage. Calf is soft and nontender. Good foot and ankle motion without difficulty. Sensation and circulatory status is intact. - Labs CBC & Chem 7: 01/06/20 07:18 01/06/20 07:18 Labs: Abnormal Lab Results - Last 24 Hours (Table) 01/05/20 01/05/20 01/05/20 Range/Units 10:59 10:59 17:06 RBC (3.80-5.40) m/uL Hgb (11.4-16.0) gm/dL Hct (34.0-46.0) % MCH (25.0-35.0) pg MCHC (31.0-37.0) g/dL RDW (11.5-15.5) % Sodium (137-145) mmol/L BUN (7-17) mg/dL Glucose (74-99) mg/dL POC Glucose (mg/dL) 136 H (75-99) mg/dL Iron 20 L (50-170) ug/dL % Saturation 7.12 L (12.00-45.00) CA 15-3 Antigen 494.1 H (0.0-32.3) U/mL CA 27-29 877.2 H (0.0-38.5) U/mL 01/06/20 01/06/20 01/06/20 Range/Units 06:47 07:18 07:18 RBC 2.99 L (3.80-5.40) m/uL Hgb 7.2 L (11.4-16.0) gm/dL Hct 24.2 L (34.0-46.0) % MCH 23.9 L (25.0-35.0) pg MCHC 29.5 L (31.0-37.0) g/dL RDW 17.1 H (11.5-15.5) % Sodium 134 L (137-145) mmol/L BUN 32 H (7-17) mg/dL Glucose 130 H (74-99) mg/dL POC Glucose (mg/dL) 144 H (75-99) mg/dL Iron (50-170) ug/dL % Saturation (12.00-45.00) CA 15-3 Antigen (0.0-32.3) U/mL CA 27-29 (0.0-38.5) U/mL Assessment and Plan (1) Bone lesion Current Visit: Yes Status: Acute Priority: High Code(s): M89.9 - DISORDER OF BONE, UNSPECIFIED SNOMED Code(s): 63272866 (2) Breast mass Current Visit: Yes Status: Acute Priority: High Code(s): N63.0 - UNSPECIFIED LUMP IN UNSPECIFIED BREAST SNOMED Code(s): 44845347 (3) History of open reduction and internal fixation (ORIF) procedure Current Visit: Yes Status: Acute Code(s): Z98.890 - OTHER SPECIFIED POSTPROCEDURAL STATES SNOMED Code(s): 417817487 (4) Subtrochanteric fracture of right femur Current Visit: Yes Status: Acute Code(s): S72.21XA - DISPLACED SUBTROCHANTERIC FRACTURE OF RIGHT FEMUR, INIT SNOMED Code(s): 496065618 Plan: 1. Continue pain control 2. Continue non-weightbearing right lower extremity 3. Will continue to follow closely with internal medicine and oncology 4. She will need rehab placement upon discharge. She is orthopedically stable for discharge when cleared medically.
--- NOTE | 2020-01-06 15:07 | CT ---
EXAMINATION TYPE: CT ChestAbdPelvis w con DATE OF EXAM: 01/06/2020 COMPARISON: Right femur x-ray dated 01/02/2020 HISTORY: Breast cancer staging CT DLP: 1883.6 mGycm. Automated Exposure Control for Dose Reduction was Utilized. CONTRAST: CT scan of the thorax, abdomen and pelvis is performed with IV Contrast, patient injected with 100 ml mL of Isovue 300. FINDINGS: LUNGS: There are numerous bilateral pulmonary nodules most radiographically compatible with metastasi s although this could be pathologically proven with percutaneous biopsy. The largest of these nodules are measured such as a 2.0 cm nodule in the right lower lobe on series 204 image 35, right middle lo be pulmonary nodule measuring 1.5 cm on image 37, left basilar pulmonary nodule measuring 2.1 cm on i mage 44, and lingular pulmonary nodule on image 28 measuring 1.0 cm. Multifocal pleural parenchymal scarring is seen. Main tracheobronchial tree is patent. No sizable ple ural effusion or pneumothorax. MEDIASTINUM: There are no greater than 1 cm hilar or mediastinal lymph nodes. No pericardial effusi on is seen. OTHER: There is a highly suspicious, likely pathologically proven right breast mass appearing to inva de the chest wall on series 201 image 35 measuring 4.7 x 4.7 cm. Lateral to this asymmetry could repr esent fibroglandular tissue or seroma/hematoma. Cranial to this there is a abnormal lymph node (appea ring intramammary) with a punctate internal density, possibly biopsy marker measuring 2.7 cm on image 29. No other suspicious adenopathy is seen within the bilateral axilla nor internal mammary chain. LIVER/GB: There is a highly suspicious mass within the inferior right hepatic lobe measuring approxim ately 4.2 x 2.9 cm with an adjacent satellite suspicious subcentimeter density. Findings are marked o n image 77. Within the remainder the liver there are other vague ill-defined hypoattenuated areas on liver window that are poorly measured (at least 4 in number). These do appear subcentimeter. Minimal intrahepatic biliary ductal dilatation. There is some fluid surrounding the gallbladder and internal debris suggesting biliary sludge. Intrahepatic biliary ductal dilatation may be secondary to compress ion by multiple pathologically abnormal centrally necrotic lymph nodes in the tyler hepatis measuring up to 2.8 cm in short axis cranially and 4.8 cm in short axis caudally. PANCREAS: No significant abnormality is seen. SPLEEN: No significant abnormality is seen. ADRENALS: No significant abnormality is seen. KIDNEYS: There are left lower pole fluid attenuated renal cysts and some lesions that are too small t o accurately characterize of the bilateral kidneys (subcentimeter). [place] catheter is placed in the u rinary bladder and air within the urinary bladder is likely secondary to recent instrumentation. BOWEL: There is a right lateral ventral abdominal hernia that is bowel containing. This has a wide n jaspreet that measures 4.1 cm. This hernia defect contains mesentery, fat, and large bowel. No evidence of bowel obstruction. GENITAL ORGANS: Small volume free fluid is seen within the pelvis. Anasarca is also noted there is de pendent posteriorly. LYMPH NODES: Periaortic soft tissue density likely relates to adenopathy. Extensive necrotic adenopat hy in the portacaval region as described above. OSSEOUS STRUCTURES: Surgical fixation of the right proximal femur is seen with surrounding soft tissu e edema and foci of subcutaneous emphysema. There is diffuse osseous demineralization and moderate de generative change of the spine. Probable vertebral body hemangiomas at T9 and T7. Mild dextroscoliosi s of the lumbar spine. OTHER: Severe atherosclerosis of the abdominal aorta and its branches. IMPRESSION: 1. CT findings that are highly suspicious for multifocal metastatic disease. Numerous pulmonary nodul es are seen most compatible with metastatic disease that could be pathologically proven with biopsy. Additionally a highly suspicious hepatic mass is present with numerous large centrally necrotic perip ortal lymph nodes creating mild intrahepatic biliary ductal dilatation. Some ascites is also seen marky rounding the gallbladder and liver. 2. Osseous findings appear as benign vertebral body hemangiomas. No convincing evidence of osseous me tastasis. 3. Large right paracentral ventral hernia that is:-Containing. No current evidence of obstruction. 4. Foci of air surrounding a right hip intramedullary fixation myles with surrounding inflammatory ewing ge, likely due to recent surgical intervention. Ensure no clinical signs of infection.
[2020-01-06] MEDS: METOCLOPRAMIDE 5 MG/ML 2 ML VIAL IVP PRN (16:53)
--- NOTE | 2020-01-06 17:05 | P.PN ---
Progress Note - Text Progress Note Date: 01/06/20 - Chief Complaint Right hip fracture History of presenting complaint: This is a 74-year-old patient of Dr. bosch. Chronic stable medical conditions include diabetes, hypertension, rheumatoid arthritis, varicose veins. For last few days patient is joints have been bothering her and affect in different joints including the hips and knees. Patient has been dizzy for about a week. Decreased appetite. For 3 days been having nausea vomiting. She was working on the computer was getting off the chair lost her balance fell down. Injuring her right hip. -right hip fracture. Denies any chest pain no palpitation. Unable to take her medications and she came in her blood pressures running high over 200 systolic. some troponin leak. Very subtle EKG changes.. No abdominal pain. No diarrhea. On January 02-underwent ORIF and IM nailing. CT chest-showed multiple pulmonary nodules. No lymphadenopathy. And suggestive breast neoplasm. Computed tomography scan brain-cerebral atrophy, Sebas lytic lesions in the skull. And soft tissue density masses chest expansile. CT angiogram of the brain was negative. Today-laying in bed. Some pain in the right hip. Did tolerate some diet. Tired. Review of systems: Was done for constitutional, cardiovascular, GI, pulmonary. relevant finding as above Active Medications Hydrocodone Bitart/Acetaminophen (Alpine 5-325) 2 each PO Q6HR PRN PRN Reason: Pain Scale 6 to 10 Hydrocodone Bitart/Acetaminophen (Alpine 5-325) 1 each PO Q4HR PRN PRN Reason: Pain Scale 1 to 5 Last Admin: 01/05/20 14:52 Dose: 1 each Documented by: Aspirin (Aspirin) 325 mg PO DAILY [facility] Last Admin: 01/06/20 08:23 Dose: 325 mg Documented by: Atorvastatin Calcium (Lipitor) 20 mg PO HS [facility] Last Admin: 01/05/20 22:51 Dose: Not Given Documented by: Clonidine HCl (Catapres-Tts 0.1mg Patch) 1 patch TRANSDERM Q7D [facility] Last Admin: 01/01/20 10:59 Dose: 1 patch Documented by: Lisinopril/HCTZ (Zestoretic 10-12.5) 1 each PO BID [facility] Last Admin: 01/06/20 08:23 Dose: 1 each Documented by: Heparin Sodium (Porcine) (Heparin) 5,000 unit SQ Q12HR [facility] Last Admin: 01/06/20 08:23 Dose: 5,000 unit Documented by: Hydromorphone HCl (Dilaudid) 1 mg IVP Q4HR PRN PRN Reason: Pain Last Admin: 01/03/20 16:07 Dose: 1 mg Documented by: Hydromorphone HCl (Dilaudid) 0.125 mg IVP Q3HR PRN PRN Reason: Pain Scale 1 to 3 Hydromorphone HCl (Dilaudid) 0.25 mg IVP Q3HR PRN PRN Reason: Pain Scale 4 to 6 Hydromorphone HCl (Dilaudid) 0.5 mg IVP Q3HR PRN PRN Reason: Pain Scale 7 to 10 Last Admin: 01/02/20 18:24 Dose: 0.5 mg Documented by: Promethazine HCl 25 mg/ Sodium (Chloride) 51 mls @ 200 mls/hr IVPB Q6HR PRN PRN Reason: Nausea Last Admin: 01/01/20 08:52 Dose: 200 mls/hr Documented by: Magnesium Hydroxide (Milk Of Magnesia) 2,400 mg PO DAILY PRN PRN Reason: Constipation Metoclopramide HCl (Reglan) 5 mg IVP Q6HR PRN PRN Reason: Nausea And Vomiting Last Admin: 01/06/20 16:53 Dose: 5 mg Documented by: Metoprolol Tartrate (Lopressor) 50 mg PO TID [facility] Last Admin: 01/06/20 15:59 Dose: 50 mg Documented by: Naloxone HCl (Narcan) 0.2 mg IV Q2M PRN PRN Reason: Opioid Reversal Ondansetron HCl (Zofran) 4 mg IVP Q6HR PRN PRN Reason: Nausea And Vomiting Last Admin: 01/06/20 13:21 Dose: 4 mg Documented by: Potassium Phos/Sodium Phos (Neutra-Phos Packet) 1 each PO BID [facility] Last Admin: 01/06/20 08:23 Dose: 1 each Documented by: Senna/Docusate Sodium (Senokot-S) 2 each PO HS [facility] Last Admin: 01/05/20 22:52 Dose: Not Given Documented by: Temazepam (Restoril) 15 mg PO HS PRN PRN Reason: Insomnia Tramadol HCl (Ultram) 50 mg PO Q6H PRN PRN Reason: Moderate Pain Last Admin: 01/06/20 04:00 Dose: 50 mg Documented by: Tramadol HCl (Ultram) 100 mg PO Q6H PRN PRN Reason: Severe Pain Last Admin: 01/06/20 16:02 Dose: 100 mg Documented by: Physical examination: VITAL SIGNS: 98, 93, 16, 150/67, 92% on room air GENERAL: Laying in bed, awake EYES: Pupils equal. Conjunctiva normal. HEENT: External appearance of nose and ears normal, oral cavity grossly normal. NECK: JVD not raised; masses not palpable. HEART: First and second heart sounds are normal; no edema. LUNGS: Respiratory rate normal; slightly decreased breath sound. ABDOMEN: Soft, nontender, liver spleen not palpable, no masses palpable. PSYCH: Alert and oriented x3; mood and affect normal. MUSCULOSKELETAL: Evidence of OA in the hands, INVESTIGATIONS, reviewed in the clinical context: White count 8.7 hemoglobin 7.2 potassium [address] chest abdomen pelvis-numerous bilateral pulmonary nodules, right breast mass, lymphadenopathy, mass within the inferior right hepatic lobe and some satellite density. Some intrahepatic biliary dilatation Previous testing White count 14.5 hemoglobin 12 repeat 10.5 today to see 53 potassium 4.1 creatinine 0.68 Troponin I 0.043, 0.048 EKG tracing personally reviewed by me-Q waves in inferior leads Chest x-ray film-questionable infiltrate versus interstitial lung finding. Right hip x-ray-acute subtrochanteric right femur fracture 2-D echo-EF 60-65%, concentric LVH, moderate pulmonic regurgitation Iron 20, TIBC 281, iron saturation low at 7.12 CA 15-300s and increased at 494, CA 27-29 elevated at 877 Assessment: -Acute subtrochanteric right femur fracture secondary to 4 followed by all RIF and IM nailing -Extensive metastatic disease suspected from breast cancer extending into the bones, lungs and the liver -Rheumatoid arthritis, chronic -Obesity BMI 30.3 -Hypertensive heart disease -Moderate pulmonic regurgitation -Hypertensive urgency -Diabetes mellitus type 2 on oral hypoglycemic Plan: Did communicate with oncology team this morning. Further plan will be determined based as today's findings. Meantime continue current medication treatment plan. Radiation oncology is being consulted. Thank you Dr. Gillette
[2020-01-06 17:15] LABS: Glucose,Whole Blood 115 mg/dL (75-99)
[2020-01-06 20:25] LABS: Glucose,Whole Blood 125 mg/dL (75-99)
[2020-01-06] MEDS: SENNOSIDES-DOCUSATE SODIUM 1 EACH TAB PO SCH (20:46)
[2020-01-06] MEDS: ATORVASTATIN 20 MG TAB PO SCH (20:46)
[2020-01-06] MEDS ORDERED: diphenhydrAMINE 25 MG CAP PO PRN (21:04)
[2020-01-06] MEDS: diphenhydrAMINE 25 MG CAP PO PRN (21:15)
[2020-01-07] MEDS: HYDROcodone/APAP 5-325MG 1 EACH TAB PO PRN (03:11)
[2020-01-07 06:52] LABS: Glucose,Whole Blood 110 mg/dL (75-99)
[2020-01-07] MEDS: METOPROLOL TARTRATE 50 MG TAB PO SCH ×3 (07:29→20:28)
[2020-01-07] MEDS: HEPARIN SODIUM,PORCINE 5,000 UNIT/ML 1 ML VIAL SQ SCH ×2 (07:29→20:28)
[2020-01-07] MEDS: ASPIRIN 325 MG TAB PO SCH (07:29)
[2020-01-07] MEDS: diphenhydrAMINE 25 MG CAP PO PRN (07:29)
[2020-01-07] MEDS: LISINOPRIL-HCTZ 10-12.5 MG 1 EACH TAB PO SCH ×2 (07:30→20:28)
[2020-01-07] MEDS: POTAS-SOD-PHOS 278-164-250 MG 1 EACH PACKET PO SCH ×2 (07:30→20:28)
[2020-01-07 08:19] LABS: Anisocytosis Slight; HCT 27.2 % (34.0-46.0); HGB 8.2 gm/dL (11.4-16.0); Hypochromasia Slight; MCH 23.8 pg (25.0-35.0); MCV 79.2 fL (80.0-100.0); Mean Platelet Volume 8.8; Microcytosis Slight; Platelet Count 413 k/uL (150-450); RBC 3.44 m/uL (3.80-5.40); WBC 10.9 k/uL (3.8-10.6)
[2020-01-07 08:24] LABS: Calcium 9.8 mg/dL (8.4-10.2); Potassium 4.2 mmol/L (3.5-5.1)
[2020-01-07 09:01] LABS: Eosinophils # (M) 0.11 k/uL (0-0.7); Lymphocytes # (M) 1.53 k/uL (1.0-4.8); Metamyelocytes # (M) 0.11 k/uL (0); Metamyelocytes % 1 %; Monocytes # (M) 0.65 k/uL (0-1.0); Myelocytes # (M) 0.11 k/uL (0); Myelocytes % 1 %; Neutrophils # (M) 8.61 k/uL (1.3-7.7); Neutrophils % (M) 79 %; Nucleated Red Blood Cells 0 /100 WBC (0-0); Total Cells Counted 200
[2020-01-07 09:02] LABS: Polychromasia Present
--- NOTE | 2020-01-07 11:10 | P.PN ---
Subjective Progress Note Date: 01/07/20 Principal diagnosis: rt femur fracture, most consistent with pathological fracture, s/p open reduction with intramedullary nailing, suspect breast cancer In f/u today pt continues to have mild to moderate nausea from pain meds, pain is better today, no fever, NIGEL, SOB, abd pain, mild lower extremity swelling. Objective - Vital Signs Vital signs: Vital Signs Temp 98.5 F 01/07/20 07:13 Pulse 83 01/07/20 07:13 Resp 17 01/07/20 07:13 BP 116/70 01/07/20 07:13 Pulse Ox 97 01/07/20 05:10 Intake & Output 01/06/20 01/07/20 01/07/20 18:59 06:59 18:59 Intake Total 900 720 Output Total 250 Balance 650 720 Intake: Oral 900 420 Tube Feeding 300 Output: Urine 250 Other: Voiding Method Indwelling Catheter Indwelling Catheter - Constitutional General appearance: Present: cooperative, no acute distress, obese - EENT Eyes: Present: anicteric sclerae, EOMI ENT: Present: hearing grossly normal - Respiratory Respiratory: bilateral: CTA - Cardiovascular Heart sounds: normal: S1, S2 - Peripheral edema leg Peripheral Edema: bilateral: Trace - Gastrointestinal General gastrointestinal: Present: normal bowel sounds, soft - Integumentary Integumentary: Present: pale - Neurologic Neurologic: Present: CNII-XII intact - Musculoskeletal Musculoskeletal: Present: generalized weakness - Psychiatric Psychiatric Comment(s): she has trouble with recall, she seems to understand our discussion today as she answers questions appropriately and asked pertinent questions Psychiatric: Present: A&O x's 3, appropriate affect, intact judgment & insight - Labs CBC & Chem 7: 01/07/20 06:50 01/07/20 07:45 Labs: Abnormal Lab Results - Last 24 Hours (Table) 01/06/20 01/06/20 01/07/20 Range/Units 17:12 20:24 06:50 WBC 10.9 H (3.8-10.6) k/uL RBC 3.44 L (3.80-5.40) m/uL Hgb 8.2 L (11.4-16.0) gm/dL Hct 27.2 L (34.0-46.0) % MCV 79.2 L (80.0-100.0) fL MCH 23.8 L (25.0-35.0) pg MCHC 30.0 L (31.0-37.0) g/dL RDW 18.0 H (11.5-15.5) % Neutrophils # (Manual) 8.61 H (1.3-7.7) k/uL Metamyelocytes # (Man) 0.11 H (0) k/uL Myelocytes # (Manual) 0.11 H (0) k/uL Sodium (137-145) mmol/L BUN (7-17) mg/dL POC Glucose (mg/dL) 115 H 125 H (75-99) mg/dL 01/07/20 01/07/20 Range/Units 06:50 07:45 WBC (3.8-10.6) k/uL RBC (3.80-5.40) m/uL Hgb (11.4-16.0) gm/dL Hct (34.0-46.0) % MCV (80.0-100.0) fL MCH (25.0-35.0) pg MCHC (31.0-37.0) g/dL RDW (11.5-15.5) % Neutrophils # (Manual) (1.3-7.7) k/uL Metamyelocytes # (Man) (0) k/uL Myelocytes # (Manual) (0) k/uL Sodium 134 L (137-145) mmol/L BUN 23 H (7-17) mg/dL POC Glucose (mg/dL) 110 H (75-99) mg/dL - Imaging and Cardiology CT scan - abdomen: report reviewed CT scan - chest: report reviewed CT scan - pelvis: report reviewed Assessment and Plan (1) Fracture of hip Narrative/Plan: Admitted for the same, s/p Orthopedic intervention. Rehabilitation planned. Pathology feels that the bone fragments contain malignant cells and it is felt diagnosis can be obtained. Current Visit: Yes Status: Acute Priority: High Code(s): S72.009A - FRACTURE OF UNSP PART OF NECK OF UNSP FEMUR, INIT SNOMED Code(s): 962995770 (2) Breast mass Current Visit: Yes Status: Acute Priority: High Code(s): N63.0 - UNSPECIFIED LUMP IN UNSPECIFIED BREAST SNOMED Code(s): 91565711 (3) Bone lesion Current Visit: Yes Status: Acute Priority: High Code(s): M89.9 - DISORDER OF BONE, UNSPECIFIED SNOMED Code(s): 29413521 (4) Microcytic hypochromic anemia Narrative/Plan: Iron deficiency after lab testing. IV iron ordered 01/06, another dose today since she is still inpatient. GI work up in the future may be in order Current Visit: Yes Status: Acute Priority: High Code(s): D50.9 - IRON DEFICIENCY ANEMIA, UNSPECIFIED SNOMED Code(s): 13809820 Plan: Dr. Ibarra reviewed with the patient staging CT CAP results. The right breast and axilla were positive for masses, there appears to be lung nodules as well as liver lesions and perihepatic adenopathy. Still pending nuclear medicine bone scan. He discussed with her that unfortunately, patient does have stage IV malignancy. Patient is not curable but, certainly treatable. He reviewed the prognosis for certain types of breast cancer can be significantly long. Explained the necessity of obtaining final path, hormone receptor/Her2 status, request that specimen be sent for next generation sequencing and PDL 1 testing. Based on the results of this testing a treatment plan will be developed. Radiation as an option was also discussed as options for strengthening the p athological fracture of the hip and if the patient's skull metastasis begins to cause any symptoms. Patient did appear to understand her situation. We will contact the patient's daughter and update her on the same. Patient encouraged to participate fully in rehabilitation. The stronger she is the better she will handle any treatment provided. It was explained to patient that during rehabilitation she will not be able to receive chemotherapy/targeted therapy treatment for her cancer. Typically there are not any problems with certain oral medications that are not chemotherapy but, this will have to be cleared through the rehabilitation facility prior to any prescription (still need HR status reported). Dr Attests: I have performed H&P and developed impression and plan of care for pt, discussed with dictator. I agree with dictated note, documented as a scribe.
[2020-01-07 11:22] LABS: Glucose,Whole Blood 121 mg/dL (75-99)
[2020-01-07] MEDS ORDERED: SODIUM FERRIC GLUCONAT-SUCROSE 125 MG in SODIUM CHLORIDE 0.9% 100 ML IVPB ONE (11:30)
[2020-01-07] MEDS ORDERED: LORazepam 1 MG TAB PO STA (12:40)
[2020-01-07 13:29] VITALS: BMI 30.3
--- NOTE | 2020-01-07 14:32 | NM ---
EXAMINATION TYPE: NM bone scan whole body DATE OF EXAM: 01/07/2020 COMPARISON: Whole-body CT from one day earlier HISTORY: Right femur x-rays January 02, 2020. Whole body CT from yesterday. CT brain January 04, 2020. Delayed whole-body scanning was performed following the injection of 23.7 mCi Tc 99m MDP. Images acq uired 5 hours post injection. FINDINGS: There is a lucent area with surrounding hypermetabolic uptake corresponding to the destructive occipi aric skull lesion CT brain axial image 53. Additional areas of radiotracer uptake corresponds to small er destructive lytic lesions. There is abnormal hypermetabolic uptake in the subtrochanteric region left proximal femur correspondi ng to large lytic lesion on CT coronal image 96. Smaller lesion lesion superior aspect acetabulum les s well seen but does show faint hypermetabolic uptake at this level. There is mild diffuse uptake surrounding the right proximal femur likely from recent dictation surger y. There is more suspicious focal hypermetabolic uptake in the distal femoral metaphysis concerning f or underlying metastatic lesion at this level. Hypermetabolic focus proximal tibial metaphysis suspic ious for metabolic focus is noted. There is hypermetabolic uptake in the distal left clavicle corresponding to subtle lytic lesion at ed ge of field of view coronal image [address] Subtle lytic lesion left humeral head also present corres ponding to hypermetabolic focus. No definitive abnormal hypermetabolic lesions in the spine or ribs when correlating with CT. IMPRESSION: Confirmation of osseous metastatic disease as detailed above in patient with known metast atic breast cancer.
--- NOTE | 2020-01-07 15:06 | P.PN ---
Subjective Progress Note Date: 01/07/20 Principal diagnosis: Subtrochanteric fracture right femur. Status post open reduction internal fixation right femur with long IT nail. Metastatic breast cancer. This is a 74-year-old female with history of subtrochanteric fracture of the right femur. She is postop open reduction internal fixation with long IT nail right femur on 01/02/2020. She has had brain and chest, abdomen and pelvis CT which show findings suspicious for metastatic breast cancer. Pathology report is not yet available for the reamings from surgery. However, report shows that there are likely breast cancer cells in the bone reamings from the fracture site. She she is stable from an orthopedic standpoint. She has no new complaints today. Objective - Vital Signs Vital signs: Vital Signs Temp 98.5 F 01/07/20 07:13 Pulse 83 01/07/20 07:13 Resp 17 01/07/20 07:13 BP 116/70 01/07/20 07:13 Pulse Ox 97 01/07/20 05:10 Intake & Output 01/06/20 01/07/20 01/07/20 18:59 06:59 18:59 Intake Total 900 720 Output Total 250 Balance 650 720 Intake: Oral 900 420 Tube Feeding 300 Output: Urine 250 Other: Voiding Method Indwelling Catheter Indwelling Catheter - Exam This is a 74-year-old female in no acute distress. She is alert with some confusion today. Exam of the right lower extremity revealed that the Dermabond tape in place. She has full foot and ankle motion without difficulty or pain. She is unable to lift the leg independently off the bed. Pedal pulse is +1/4. Neurovascular status to the lower extremity is intact. - Labs CBC & Chem 7: 01/07/20 06:50 01/07/20 07:45 Labs: Abnormal Lab Results - Last 24 Hours (Table) 01/06/20 01/06/20 01/07/20 Range/Units 17:12 20:24 06:50 WBC 10.9 H (3.8-10.6) k/uL RBC 3.44 L (3.80-5.40) m/uL Hgb 8.2 L (11.4-16.0) gm/dL Hct 27.2 L (34.0-46.0) % MCV 79.2 L (80.0-100.0) fL MCH 23.8 L (25.0-35.0) pg MCHC 30.0 L (31.0-37.0) g/dL RDW 18.0 H (11.5-15.5) % Neutrophils # (Manual) 8.61 H (1.3-7.7) k/uL Metamyelocytes # (Man) 0.11 H (0) k/uL Myelocytes # (Manual) 0.11 H (0) k/uL Sodium (137-145) mmol/L BUN (7-17) mg/dL POC Glucose (mg/dL) 115 H 125 H (75-99) mg/dL 01/07/20 01/07/20 Range/Units 06:50 07:45 WBC (3.8-10.6) k/uL RBC (3.80-5.40) m/uL Hgb (11.4-16.0) gm/dL Hct (34.0-46.0) % MCV (80.0-100.0) fL MCH (25.0-35.0) pg MCHC (31.0-37.0) g/dL RDW (11.5-15.5) % Neutrophils # (Manual) (1.3-7.7) k/uL Metamyelocytes # (Man) (0) k/uL Myelocytes # (Manual) (0) k/uL Sodium 134 L (137-145) mmol/L BUN 23 H (7-17) mg/dL POC Glucose (mg/dL) 110 H (75-99) mg/dL Assessment and Plan (1) Subtrochanteric fracture of right femur Current Visit: Yes Status: Acute Code(s): S72.21XA - DISPLACED SUBTROCHANT MANJULA FRACTURE OF RIGHT FEMUR, INIT SNOMED Code(s): 748036120 (2) Fracture of hip Current Visit: Yes Status: Acute Priority: High Code(s): S72.009A - FRACTURE OF UNSP PART OF NECK OF UNSP FEMUR, INIT SNOMED Code(s): 155211215 (3) Right femoral fracture Current Visit: Yes Status: Acute Code(s): S72.91XA - UNSP FRACTURE OF RIGHT FEMUR, INIT FOR CLOS FX SNOMED Code(s): 86212244 (4) Dizziness, nonspecific Current Visit: Yes Status: Acute Code(s): R42 - DIZZINESS AND GIDDINESS SNOMED Code(s): 833604722 (5) History of open reduction and internal fixation (ORIF) procedure Current Visit: Yes Status: Acute Code(s): Z98.890 - OTHER SPECIFIED POSTPROCEDURAL STATES SNOMED Code(s): 858534301 Plan: The clinical findings are discussed with the patient. The patient's daughters have been advised of her CT findings. Oncology is following. She is nonweightbearing to the right lower extremity. I anticipate need for inpatient rehab or detention placement at discharge.
[2020-01-07 17:04] LABS: Glucose,Whole Blood 147 mg/dL (75-99)
[2020-01-07] MEDS: LETROZOLE 2.5 MG TAB PO SCH (17:57)
--- NOTE | 2020-01-07 20:24 | P.PN ---
Progress Note - Text Progress Note Date: 01/07/20 - Chief Complaint Right hip fracture History of presenting complaint: This is a 74-year-old patient of Dr. bosch. Chronic stable medical conditions include diabetes, hypertension, rheumatoid arthritis, varicose veins. For last few days patient is joints have been bothering her and affect in different joints including the hips and knees. Patient has been dizzy for about a week. Decreased appetite. For 3 days been having nausea vomiting. She was working on the computer was getting off the chair lost her balance fell down. Injuring her right hip. -right hip fracture. Denies any chest pain no palpitation. Unable to take her medications and she came in her blood pressures running high over 200 systolic. some troponin leak. Very subtle EKG changes.. No abdominal pain. No diarrhea. On January 02-underwent ORIF and IM nailing. CT chest-showed multiple pulmonary nodules. No lymphadenopathy. And suggestive breast neoplasm. Computed tomography scan brain-cerebral atrophy, Sebas lytic lesions in the skull. And soft tissue density masses chest expansile. CT angiogram of the brain was negative. Today-no new issues. Saw the patient only today. Nuclear bone scan was ordered. Did tolerate some diet. Pain control. Review of systems: Was done for constitutional, cardiovascular, GI, pulmonary. relevant finding as above Active Medications Hydrocodone Bitart/Acetaminophen ([place] 5-325) 2 each PO Q6HR PRN PRN Reason: Pain Scale 6 to 10 Last Admin: 01/07/20 03:11 Dose: 2 each Documented by: Hydrocodone Bitart/Acetaminophen (Galt 5-325) 1 each PO Q4HR PRN PRN Reason: Pain Scale 1 to 5 Last Admin: 01/05/20 14:52 Dose: 1 each Documented by: Aspirin (Aspirin) 325 mg PO DAILY [facility] Last Admin: 01/07/20 07:29 Dose: 325 mg Documented by: Atorvastatin Calcium (Lipitor) 20 mg PO HS [facility] Last Admin: 01/06/20 20:46 Dose: 20 mg Documented by: Clonidine HCl (Catapres-Tts 0.1mg Patch) 1 patch TRANSDERM Q7D [facility] Last Admin: 01/01/20 10:59 Dose: 1 patch Documented by: Diphenhydramine HCl (Benadryl) 25 mg PO QID PRN PRN Reason: Itching Last Admin: 01/07/20 07:29 Dose: 25 mg Documented by: Lisinopril/HCTZ (Zestoretic 10-12.5) 1 each PO BID [facility] Last Admin: 01/07/20 07:30 Dose: 1 each Documented by: Heparin Sodium (Porcine) (Heparin) 5,000 unit SQ Q12HR [facility] Last Admin: 01/07/20 07:29 Dose: 5,000 unit Documented by: Hydromorphone HCl (Dilaudid) 1 mg IVP Q4HR PRN PRN Reason: Pain Last Admin: 01/03/20 16:07 Dose: 1 mg Documented by: Hydromorphone HCl (Dilaudid) 0.125 mg IVP Q3HR PRN PRN Reason: Pain Scale 1 to 3 Hydromorphone HCl (Dilaudid) 0.25 mg IVP Q3HR PRN PRN Reason: Pain Scale 4 to 6 Hydromorphone HCl (Dilaudid) 0.5 mg IVP Q3HR PRN PRN Reason: Pain Scale 7 to 10 Last Admin: 01/02/20 18:24 Dose: 0.5 mg Documented by: Promethazine HCl 25 mg/ Sodium (Chloride) 51 mls @ 200 mls/hr IVPB Q6HR PRN PRN Reason: Nausea Last Admin: 01/01/20 08:52 Dose: 200 mls/hr Documented by: Letrozole (Femara) 2.5 mg PO DAILY [facility] Last Admin: 01/07/20 17:57 Dose: 2.5 mg Documented by: Magnesium Hydroxide (Milk Of Magnesia) 2,400 mg PO DAILY PRN PRN Reason: Constipation Metoclopramide HCl (Reglan) 5 mg IVP Q6HR PRN PRN Reason: Nausea And Vomiting Last Admin: 01/06/20 16:53 Dose: 5 mg Documented by: Metoprolol Tartrate (Lopressor) 50 mg PO TID [facility] Last Admin: 01/07/20 17:20 Dose: 50 mg Documented by: Naloxone HCl (Narcan) 0.2 mg IV Q2M PRN PRN Reason: Opioid Reversal Ondansetron HCl (Zofran) 4 mg IVP Q6HR PRN PRN Reason: Nausea And Vomiting Last Admin: 01/06/20 13:21 Dose: 4 mg Documented by: Potassium Phos/Sodium Phos (Neutra-Phos Packet) 1 each PO BID [facility] Last Admin: 01/07/20 07:30 Dose: 1 each Documented by: Senna/Docusate Sodium (Senokot-S) 2 each PO HS [facility] Last Admin: 01/06/20 20:46 Dose: 2 each Documented by: Temazepam (Restoril) 15 mg PO HS PRN PRN Reason: Insomnia Tramadol HCl (Ultram) 50 mg PO Q6H PRN PRN Reason: Moderate Pain Last Admin: 01/06/20 04:00 Dose: 50 mg Documented by: Tramadol HCl (Ultram) 100 mg PO Q6H PRN PRN Reason: Severe Pain Last Admin: 01/06/20 16:02 Dose: 100 mg Documented by: Physical examination: VITAL SIGNS: 98.7, 80, 17, 133/67, 100% on room air GENERAL: Laying in bed, awake EYES: Pupils equal. Conjunctiva normal. HEENT: External appearance of nose and ears normal, oral cavity grossly normal. NECK: JVD not raised; masses not palpable. HEART: First and second heart sounds are normal; no edema. LUNGS: Respiratory rate normal; slightly decreased breath sound. ABDOMEN: Soft, nontender, liver spleen not palpable, no masses palpable. PSYCH: Alert and oriented x3; mood and affect normal. MUSCULOSKELETAL: Evidence of OA in the hands, INVESTIGATIONS, reviewed in the clinical context: White count 10.9 hemoglobin 8.2 potassium 4.2 creatinine 0.78 Nuclear bone scan-showing confirmation of osseous metastatic disease Previous testing White count 14.5 hemoglobin 12 repeat 10.5 today to see 53 potassium 4.1 creatinine 0.68 Troponin I 0.043, 0.048 EKG tracing personally reviewed by il-Q waves in inferior leads Chest x-ray film-questionable infiltrate versus interstitial lung finding. Right hip x-ray-acute subtrochanteric right femur fracture 2-D echo-EF 60-65%, concentric LVH, moderate pulmonic regurgitation Iron 20, TIBC 281, iron saturation low at 7.12 CA 15-300s and increased at 494, CA 27-[address] chest abdomen pelvis-numerous bilateral pulmonary nodules, right breast mass, lymphadenopathy, mass within the inferior right hepatic lobe and some satellite density. Some intrahepatic biliary dilatation Assessment: -Acute subtrochanteric right femur fracture secondary to fall followed by ORIF and IM nailing -Extensive metastatic disease suspected from breast cancer extending into the bones, lungs and the liver -Rheumatoid arthritis, chronic -Obesity BMI 30.3 -Hypertensive heart disease -Moderate pulmonic regurgitation -Hypertensive urgency -Diabetes mellitus type 2 on oral hypoglycemic Plan: Nuclear bone scan results noted. Awaiting input from radiation oncology. Other medication treatment plan to continue. Thank you Dr. Gillette
[2020-01-07] MEDS: ONDANSETRON 4 MG/2 ML VIAL IVP PRN (20:28)
[2020-01-07] MEDS: HYDROmorphone 0.5 MG/0.5 ML SYRINGE IVP PRN (20:28)
[2020-01-07] MEDS: ATORVASTATIN 20 MG TAB PO SCH (20:28)
[2020-01-07] MEDS: SENNOSIDES-DOCUSATE SODIUM 1 EACH TAB PO SCH (20:28)
[2020-01-07 20:51] LABS: Glucose,Whole Blood 164 mg/dL (75-99)
[2020-01-08 07:05] LABS: Glucose,Whole Blood 115 mg/dL (75-99)
[2020-01-08 08:51] LABS: African American GFR (CKD) >90 (>60 ml/min/1.73 sqM); Anion Gap 10 mmol/L; Blood Urea Nitrogen 20 mg/dL (7-17); Calcium 9.9 mg/dL (8.4-10.2); Carbon Dioxide 24 mmol/L (22-30); Chloride 98 mmol/L (98-107); Glucose 108 mg/dL (74-99); Non-African American GFR(CKD) 86 (>60 ml/min/1.73 sqM); Potassium 4.4 mmol/L (3.5-5.1); Sodium 132 mmol/L (137-145)
[2020-01-08] MEDS: METOPROLOL TARTRATE 50 MG TAB PO SCH ×3 (09:07→20:41)
[2020-01-08] MEDS: HEPARIN SODIUM,PORCINE 5,000 UNIT/ML 1 ML VIAL SQ SCH ×2 (09:07→20:49)
[2020-01-08] MEDS: cloNIDine 0.1 MG/24HR PATCH TRANSDERM SCH ×2 (09:07→11:14)
[2020-01-08] MEDS: LETROZOLE 2.5 MG TAB PO SCH (09:07)
[2020-01-08] MEDS: POTAS-SOD-PHOS 278-164-250 MG 1 EACH PACKET PO SCH ×2 (09:07→20:41)
[2020-01-08] MEDS: LISINOPRIL-HCTZ 10-12.5 MG 1 EACH TAB PO SCH ×2 (09:07→20:41)
[2020-01-08] MEDS: ASPIRIN 325 MG TAB PO SCH (09:07)
[2020-01-08 09:08] LABS: Anisocytosis Slight; Basophils # (A) 0.1 k/uL (0-0.2); Basophils % (A) 0 %; Eosinophils # (A) 0.2 k/uL (0-0.7); Eosinophils % (A) 2 %; HCT 27.1 % (34.0-46.0); HGB 7.7 gm/dL (11.4-16.0); Hypochromasia Marked; Lymphocytes # (A) 1.6 k/uL (1.0-4.8); Lymphocytes % (A) 12 %; MCH 23.6 pg (25.0-35.0); MCHC 28.6 g/dL (31.0-37.0); MCV 82.5 fL (80.0-100.0); Mean Platelet Volume 7.5; Monocytes # (A) 0.8 k/uL (0-1.0); Monocytes % (A) 7 %; Neutrophils # (A) 9.8 k/uL (1.3-7.7); Neutrophils % (A) 77 %; Platelet Count 457 k/uL (150-450); RBC 3.28 m/uL (3.80-5.40); RDW 18.1 % (11.5-15.5); WBC 12.7 k/uL (3.8-10.6)
[2020-01-08 10:23] LABS: Polychromasia Present
[2020-01-08 10:24] LABS: Poikilocytosis (M) Present
[2020-01-08] MEDS: diphenhydrAMINE 25 MG CAP PO PRN ×3 (10:34→23:25)
--- NOTE | 2020-01-08 11:00 | P.PN ---
Subjective Progress Note Date: 01/08/20 Principal diagnosis: Subtrochanteric fracture right femur. Status post open reduction internal fixation right femur with long IT nail. Metastatic breast cancer. This is a 74-year-old female with history of subtrochanteric fracture of the right femur. She is postop open reduction internal fixation with long IT nail right femur on 01/02/2020. She has had brain and chest, abdomen and pelvis CT which show findings suspicious for metastatic breast cancer. Pathology report is not yet available for the reamings from surgery. However, report shows that there are likely breast cancer cells in the bone reamings from the fracture site. She she is stable from an orthopedic standpoint. She has no new complaints today. Objective - Vital Signs Vital signs: Vital Signs Temp 98.9 F 01/08/20 05:28 Pulse 76 01/08/20 05:28 Resp 16 01/08/20 05:28 BP 141/80 01/08/20 05:28 Pulse Ox 93 L 01/08/20 07:54 Intake & Output 01/07/20 01/08/20 01/08/20 18:59 06:59 18:59 Intake Total 2310 360 Output Total 250 1000 Balance 2060 -640 Weight 85.275 kg Intake: Intake, IV Titration 150 Amount Promethazine Inj 25 mg In 50 Sodium Chloride 0.9% 50 ml @ 200 mls/hr IVPB Q6HR PRN Rx#:[id number] Sodium Ferric Gluconat- 100 Sucrose 125 mg In Sodium Chloride 0.9% 100 ml @ 100 mls/hr IVPB ONCE ONE Rx#:[id number] Oral 2160 360 Output: Urine 250 1000 Other: Voiding Method Indwelling Catheter Indwelling Catheter # Bowel Movements 3 - Exam This is a 74-year-old female in no acute distress. She is alert with some confusion today. Exam of the head reveals a palpable mass on the superior posterior aspect of the scalp. Exam of the right lower extremity revealed that the Dermabond tape in place. She has full foot and ankle motion without difficulty or pain. She is unable to lift the leg independently off the bed. Pedal pulse is +1/4. Neurovascular status to the lower extremity is intact. - Labs CBC & Chem 7: 01/08/20 07:58 01/08/20 07:58 Labs: Abnormal Lab Results - Last 24 Hours (Table) 01/07/20 01/07/20 01/07/20 Range/Units 11:21 17:03 20:50 WBC (3.8-10.6) k/uL RBC (3.80-5.40) m/uL Hgb (11.4-16.0) gm/dL Hct (34.0-46.0) % MCH (25.0-35.0) pg MCHC (31.0-37.0) g/dL RDW (11.5-15.5) % Plt Count (150-450) k/uL Neutrophils # (1.3-7.7) k/uL Sodium (137-145) mmol/L BUN (7-17) mg/dL Glucose (74-99) mg/dL POC Glucose (mg/dL) 121 H 147 H 164 H (75-99) mg/dL 01/08/20 01/08/20 01/08/20 Range/Units 07:04 07:58 07:58 WBC 12.7 H (3.8-10.6) k/uL RBC 3.28 L (3.80-5.40) m/uL Hgb 7.7 L (11.4-16.0) gm/dL Hct 27.1 L (34.0-46.0) % MCH 23.6 L (25.0-35.0) pg MCHC 28.6 L (31.0-37.0) g/dL RDW 18.1 H (11.5-15.5) % Plt Count 457 H (150-450) k/uL Neutrophils # 9.8 H (1.3-7.7) k/uL Sodium 132 L (137-145) mmol/L BUN 20 H (7-17) mg/dL Glucose 108 H (74-99) mg/dL POC Glucose (mg/dL) 115 H (75-99) mg/dL Assessment and Plan (1) Subtrochanteric fracture of right femur Current Visit: Yes Status: Acute Code(s): S72.21XA - DISPLACED SUBTROCHANTERIC FRACTURE OF RIGHT FEMUR, INIT SNOMED Code(s): 708977827 (2) Fracture of hip Current Visit: Yes Status: Acute Priority: High Code(s): S72.009A - FRACTURE OF UNSP PART OF NECK OF UNSP FEMUR, INIT SNOMED Code(s): 758872183 (3) Right femoral fracture Current Visit: Yes Status: Acute Code(s): S72.91XA - UNSP FRACTURE OF RIGHT FEMUR, INIT FOR CLOS FX SNOMED Code(s): 59958526 (4) Dizziness, nonspecific Current Visit: Yes Status: Acute Code(s): R42 - DIZZINESS AND GIDDINESS SNOMED Code(s): 386010312 (5) History of open reduction and internal fixation (ORIF) procedure Current Visit: Yes Status: Acute Code(s): Z98.890 - OTHER SPECIFIED POSTPROCEDURAL STATES SNOMED Code(s): 856805185 (6) Bone lesion Current Visit: Yes Status: Acute Priority: High Code(s): M89.9 - DISORDER OF BONE, UNSPECIFIED SNOMED Code(s): 95663899 (7) Breast mass Current Visit: Yes Status: Acute Priority: High Code(s): N63.0 - UNSPECIFIED LUMP IN UNSPECIFIED BREAST SNOMED Code(s): 08822753 Plan: The clinical findings are discussed with the patient. The patient's daughters have been advised of her CT findings. Oncology is following. She is nonweightbearing to the right lower extremity. I anticipate need for inpatient rehab or senior living placement at discharge.
[2020-01-08] MEDS: traMADol 50 MG TAB PO PRN (11:12)
[2020-01-08 11:28] LABS: Glucose,Whole Blood 132 mg/dL (75-99)
[2020-01-08] MEDS: METOCLOPRAMIDE 5 MG/ML 2 ML VIAL IVP PRN (14:19)
--- NOTE | 2020-01-08 16:46 | P.CONS ---
History of Present Illness - Reason for Consult Consult date: 01/07/20 pathologic fracture Requesting physician: Gabriele Ibarra - Chief Complaint right hip pain - History of Present Illness The patient is a 74-year-old female with a history of newly diagnosed metastatic right breast cancer, ER/GA positive and HER-2 negative. She presented seconda ry to right hip fracture, and required open reduction with IM nail placement. The patient's oncologic history began acutely on December 31 when she developed acute onset of severe right hip pain while twisting to sit down. she was found to have an acute fracture of the right intertrochanteric femur. She was taken to the operating room on Jan 02 and underwent open reduction with IM nail placement. On December she underwent a CT scan of the chest which revealed multiple noncalcified pulmonary nodules measuring up to 3 cm in size. Note was also made of a 4 cm right breast mass and ipsilateral axillary adenopathy. the patient underwent a CT scan of the brain which showed a 4 cm lytic skull lesion and a separate 1 cm lesion in the frontal bone. Imaging of the abdomen/pelvis revealed a large right liver metastasis and some necrotic periportal adenopathy. Pathology from the bone specimen from the femur was consistent with metastatic ductal carcinoma - ER/GA+ and Her2-. The patient is currently reporting 6/10 pain in the right hip. She has not been very active with physical therapy to this point. She denies headache, nausea or vomiting. Bone-scan pending. Review of Systems Constitutional: Denies chills, Denies fever Eyes: denies blurred vision Ears: deny: decreased hearing Ears, nose, mouth and throat: Denies headache Cardiovascular: Denies chest pain Respiratory: Denies cough, Denies dyspnea Gastrointestinal: Denies abdominal pain Neurological: Denies aphasia, Denies confusion, Denies convulsions Psychiatric: Denies anxiety Past Medical History Past Medical History: Diabetes Mellitus, Hypertension, Rheumatoid Arthritis (RA) Additional Past Medical History / Comment(s): pre diabetes, recently has had episodes of dizziness and fuzzy vision, 2012 had septic shock r/t bladder/kidney infection, varicose veins History of Any Multi-Drug Resistant Organisms: None Reported Past Surgical History: Appendectomy Past Anesthesia/Blood Transfusion Reactions: No Reported Reaction Past Psychological History: No Psychological Hx Reported Smoking Status: Former smoker Past Alcohol Use History: None Reported Past Drug Use History: None Reported - Past Family History Brother(s) Family Medical History: Cancer Additional Family Medical History / Comment(s): 3x brother from cancer (2x brother esophageal cancer) Father Family Medical History: Myocardial Infarction ([place]) Additional Family Medical History / Comment(s): alcoholism Medications and Allergies Home Medications Medication Instructions Recorded Confirmed Type Allopurinol [Zyloprim] 100 mg PO DAILY 12/31/19 12/31/19 History Atenolol 200 mg PO DAILY 12/31/19 12/31/19 History Ergocalciferol [Vitamin D2] 50,000 unit PO Q7D 12/31/19 12/31/19 History HYDROcodone/APAP 5-325MG [[place] 1 tab PO Q8H 12/31/19 12/31/19 History 5-325] Lisinopril [Prinivil] 20 mg PO DAILY 12/31/19 12/31/19 History glipiZIDE XL [Glucotrol Xl] 5 mg PO DAILY 12/31/19 12/31/19 History predniSONE 10 mg PO DAILY 12/31/19 12/31/19 History Allergies Allergy/AdvReac Type Severity Reaction Status Date / Time latex Allergy Rash/Hives Verified 12/31/19 21:57 Penicillins Allergy Rash/Hives Verified 12/31/19 21:57 warfarin [From Coumadin] Allergy Rash/Hives Verified 12/31/19 21:57 Physical Exam Vitals: Vital Signs Temp Pulse Resp BP Pulse Ox 01/08/20 11:50 100.5 F H 70 17 173/69 95 01/08/20 08:00 70 17 01/08/20 07:54 93 L 01/08/20 05:28 98.9 F 76 16 141/80 96 01/07/20 23:29 62 16 01/07/20 21:47 98.1 F 55 L 16 126/53 96 Intake and Output 01/08/20 01/08/20 01/08/20 06:59 14:59 22:59 Intake Total 240 1680 Output Total 1000 Balance -760 1680 Intake: Oral 240 1680 Output: Urine 1000 Other: Voiding Method Indwelling Catheter Indwelling Catheter - Constitutional General appearance: no acute distress - EENT Eyes: EOMI, PERRLA - Neck Neck: no lymphadenopathy - Respiratory Respiratory: bilateral: CTA - Cardiovascular Rhythm: regular - Gastrointestinal General gastrointestinal: no distended, soft - Integumentary Integumentary: no calor, no cellulitis - Neurologic Neurologic: CNII-XII intact - Musculoskeletal Musculoskeletal: generalized weakness - Psychiatric Psychiatric: A&O x's 3, appropriate affect Results CBC & Chem 7: 01/08/20 07:58 01/08/20 07:58 Labs: Abnormal Lab Results - Last 24 Hours (Table) 01/07/20 01/07/20 01/08/20 Range/Units 17:03 20:50 07:04 WBC (3.8-10.6) k/uL RBC (3.80-5.40) m/uL Hgb (11.4-16.0) gm/dL Hct (34.0-46.0) % MCH (25.0-35.0) pg MCHC (31.0-37.0) g/dL RDW (11.5-15.5) % Plt Count (150-450) k/uL Neutrophils # (1.3-7.7) k/uL Sodium (137-145) mmol/L BUN (7-17) mg/dL Glucose (74-99) mg/dL POC Glucose (mg/dL) 147 H 164 H 115 H (75-99) mg/dL 01/08/20 01/08/20 01/08/20 Range/Units 07:58 07:58 11:27 WBC 12.7 H (3.8-10.6) k/uL RBC 3.28 L (3.80-5.40) m/uL Hgb 7.7 L (11.4-16.0) gm/dL Hct 27.1 L (34.0-46.0) % MCH 23.6 L (25.0-35.0) pg MCHC 28.6 L (31.0-37.0) g/dL RDW 18.1 H (11.5-15.5) % Plt Count 457 H (150-450) k/uL Neutrophils # 9.8 H (1.3-7.7) k/uL Sodium 132 L (137-145) mmol/L BUN 20 H (7-17) mg/dL Glucose 108 H (74-99) mg/dL POC Glucose (mg/dL) 132 H (75-99) mg/dL CT scan - abdomen: report reviewed, image reviewed CT scan - chest: report reviewed, image reviewed CT Scan - head: report reviewed, image reviewed CT scan - pelvis: report reviewed, image reviewed Assessment and Plan Plan: The patient is a 74-year-old female with a history of newly diagnosed metastatic right breast cancer, ER/GA positive and HER-2 negative. She presented secondary to right hip fracture, and required open reduction with IM nail placement. 1. Right femur fracture s/p IM nail: I discussed with the patient and her daughter that I would recommend a course of palliative radiotherapy to prevent recurrence at the hardware site. I explained this would typically be performed in 2 weeks to allow for adequate healing. 2. Metastatic hormone positive breast cancer: Bone scan pending - patient will be started on anti-estrogen therapy. She does not have any other symptomatic sites at this time that would require therapy. Bony site on skull appears asymptomatic and can be watched despite aggressive appearance. The patient is likely to be d/c to [facility] - we will arrange outpatient follow-up. Time with Patient: Greater than 30
[2020-01-08 17:24] LABS: Glucose,Whole Blood 106 mg/dL (75-99)
--- NOTE | 2020-01-08 17:28 | P.PN ---
Progress Note - Text Progress Note Date: 01/08/20 - Chief Complaint Right hip fracture History of presenting complaint: This is a 74-year-old patient of Dr. bosch. Chronic stable medical conditions include diabetes, hypertension, rheumatoid arthritis, varicose veins. For last few days patient is joints have been bothering her and affect in different joints including the hips and knees. Patient has been dizzy for about a week. Decreased appetite. For 3 days been having nausea vomiting. She was working on the computer was getting off the chair lost her balance fell down. Injuring her right hip. -right hip fracture. Denies any chest pain no palpitation. Unable to take her medications and she came in her blood pressures running high over 200 systolic. some troponin leak. Very subtle EKG changes.. No abdominal pain. No diarrhea. On January 02-underwent ORIF and IM nailing. CT chest-showed multiple pulmonary nodules. No lymphadenopathy. And suggestive breast neoplasm. Computed tomography scan brain-cerebral atrophy, Sebas lytic lesions in the skull. And soft tissue density masses chest expansile. CT angiogram of the brain was negative. Today-Pain is present. Right hip.. [place] catheter in place. Not for radiation currently. Await some pain of the right hip. Review of systems: Was done for constitutional, cardiovascular, GI, pulmonary. relevant finding as above Active Medications Hydrocodone Bitart/Acetaminophen ([place] 5-325) 2 each PO Q6HR PRN PRN Reason: Pain Scale 6 to 10 Last Admin: 01/07/20 03:11 Dose: 2 each Documented by: Hydrocodone Bitart/Acetaminophen ([place] 5-325) 1 each PO Q4HR PRN PRN Reason: Pain Scale 1 to 5 Last Admin: 01/05/20 14:52 Dose: 1 each Documented by: Aspirin (Aspirin) 325 mg PO DAILY [facility] Last Admin: 01/08/20 09:07 Dose: 325 mg Documented by: Atorvastatin Calcium (Lipitor) 20 mg PO HS [facility] Last Admin: 01/07/20 20:28 Dose: 20 mg Documented by: Clonidine HCl (Catapres-Tts 0.1mg Patch) 1 patch TRANSDERM Q7D [facility] Last Admin: 01/08/20 11:14 Dose: 1 patch Documented by: Diphenhydramine HCl (Benadryl) 25 mg PO QID PRN PRN Reason: Itching Last Admin: 01/08/20 10:34 Dose: 25 mg Documented by: Lisinopril/HCTZ (Zestoretic 10-12.5) 1 each PO BID [facility] Last Admin: 01/08/20 09:07 Dose: 1 each Documented by: Heparin Sodium (Porcine) (Heparin) 5,000 unit SQ Q12HR [facility] Last Admin: 01/08/20 09:07 Dose: 5,000 unit Documented by: Hydromorphone HCl (Dilaudid) 1 mg IVP Q4HR PRN PRN Reason: Pain Last Admin: 01/03/20 16:07 Dose: 1 mg Documented by: Hydromorphone HCl (Dilaudid) 0.125 mg IVP Q3HR PRN PRN Reason: Pain Scale 1 to 3 Hydromorphone HCl (Dilaudid) 0.25 mg IVP Q3HR PRN PRN Reason: Pain Scale 4 to 6 Last Admin: 01/08/20 09:19 Dose: 0.25 mg Documented by: Hydromorphone HCl (Dilaudid) 0.5 mg IVP Q3HR PRN PRN Reason: Pain Scale 7 to 10 Last Admin: 01/07/20 20:28 Dose: 0.5 mg Documented by: Promethazine HCl 25 mg/ Sodium (Chloride) 51 mls @ 200 mls/hr IVPB Q6HR PRN PRN Reason: Nausea Last Admin: 01/01/20 08:52 Dose: 200 mls/hr Documented by: Letrozole (Femara) 2.5 mg PO DAILY [facility] Last Admin: 01/08/20 09:07 Dose: 2.5 mg Documented by: Magnesium Hydroxide (Milk Of Magnesia) 2,400 mg PO DAILY PRN PRN Reason: Constipation Metoclopramide HCl (Reglan) 5 mg IVP Q6HR PRN PRN Reason: Nausea And Vomiting Last Admin: 01/08/20 14:19 Dose: 5 mg Documented by: Metoprolol Tartrate (Lopressor) 50 mg PO TID [facility] Last Admin: 01/08/20 09:07 Dose: 50 mg Documented by: Naloxone HCl (Narcan) 0.2 mg IV Q2M PRN PRN Reason: Opioid Reversal Ondansetron HCl (Zofran) 4 mg IVP Q6HR PRN PRN Reason: Nausea And Vomiting Last Admin: 01/07/20 20:28 Dose: 4 mg Documented by: Potassium Phos/Sodium Phos (Neutra-Phos Packet) 1 each PO BID [facility] Last Admin: 01/08/20 09:07 Dose: 1 each Documented by: Senna/Docusate Sodium (Senokot-S) 2 each PO HS [facility] Last Admin: 01/07/20 20:28 Dose: 2 each Documented by: Temazepam (Restoril) 15 mg PO HS PRN PRN Reason: Insomnia Tramadol HCl (Ultram) 50 mg PO Q6H PRN PRN Reason: Moderate Pain Last Admin: 01/08/20 11:12 Dose: 50 mg Documented by: Tramadol HCl (Ultram) 100 mg PO Q6H PRN PRN Reason: Severe Pain Last Admin: 01/06/20 16:02 Dose: 100 mg Documented by: Physical examination: VITAL SIGNS: 98.9, 76, 16, 141/80, 96% on room air GENERAL: Laying in bed, awake EYES: Pupils equal. Conjunctiva normal. HEENT: External appearance of nose and ears normal, oral cavity grossly normal. NECK: JVD not raised; masses not palpable. HEART: First and second heart sounds are normal; no edema. LUNGS: Respiratory rate normal; slightly decreased breath sound. ABDOMEN: Soft, nontender, liver spleen not palpable, no masses palpable. PSYCH: Alert and oriented x3; mood and affect normal. MUSCULOSKELETAL: Evidence of OA in the hands, INVESTIGATIONS, reviewed in the clinical context: White count 12.7 hemoglobin 7.7 potassium 4.4 creatinine 0.71 Previous testing White count 14.5 hemoglobin 12 repeat 10.5 today to see 53 potassium 4.1 creatinine 0.68 Troponin I 0.043, 0.048 EKG tracing personally reviewed by me-Q waves in inferior leads Chest x-ray film-questionable infiltrate versus interstitial lung finding. Right hip x-ray-acute subtrochanteric right femur fracture 2-D echo-EF 60-65%, concentric LVH, moderate pulmonic regurgitation Iron 20, TIBC 281, iron saturation low at 7.12 CA 15-300s and increased at 494, CA 27-[address] chest abdomen pelvis-numerous bilateral pulmonary nodules, right breast mass, lymphadenopathy, mass within the inferior right hepatic lobe and some satellite density. Some intrahepatic biliary dilatation Nuclear bone scan-showing confirmation of osseous metastatic disease Assessment: -Acute subtrochanteric right femur fracture secondary to fall followed by ORIF and IM nailing -Extensive metastatic disease suspected from breast cancer extending into the bones, lungs and the liver -Rheumatoid arthritis, chronic -Obesity BMI 30.3 -Hypertensive heart disease -Moderate pulmonic regurgitation -Hypertensive urgency -Diabetes mellitus type 2 on oral hypoglycemic Plan: Per radiation oncology-we'll defer radiation palliation for 2 weeks. DC [place] catheter. Discussed with watch case polisher. Arranged for tomorrow. Continue inpatient rehab. Prognosis guarded. Thank you Dr. Gillette
--- NOTE | 2020-01-08 18:50 | P.PN ---
Subjective Progress Note Date: 01/08/20 Principal diagnosis: rt femur fracture, most consistent with pathological fracture, s/p open reduction with intramedullary nailing, suspect breast cancer In follow-up today the patient is laying flat in bed, reports from Nursing is that they have had some difficulty controlling her pain, felt to be to muscle spasms. Patient was comfortable when I saw her. We talked about her diagnosis. She had no other complaints Objective - Vital Signs Vital signs: Vital Signs Temp 98.3 F 01/08/20 17:04 Pulse 75 01/08/20 16:00 Resp 17 01/08/20 16:00 BP 173/69 01/08/20 11:50 Pulse Ox 95 01/08/20 11:50 Intake & Output 01/07/20 01/08/20 01/08/20 18:59 06:59 18:59 Intake Total 2310 360 2160 Output Total 250 1000 1000 Balance 2060 -640 1160 Weight 85.275 kg Intake: Intake, IV Titration 150 Amount Promethazine Inj 25 mg In 50 Sodium Chloride 0.9% 50 ml @ 200 mls/hr IVPB Q6HR PRN Rx#:[id number] Sodium Ferric Gluconat- 100 Sucrose 125 mg In Sodium Chloride 0.9% 100 ml @ 100 mls/hr IVPB ONCE ONE Rx#:[id number] Oral 2160 360 2160 Output: Urine 250 1000 1000 Other: Voiding Method Indwelling Catheter Indwelling Catheter Indwelling Catheter # Bowel Movements 3 - Constitutional General appearance: Present: cooperative, no acute distress, obese - EENT Eyes: Present: anicteric sclerae, EOMI ENT: Present: hearing grossly normal - Respiratory Respiratory: bilateral: CTA - Cardiovascular Heart sounds: normal: S1, S2 - Gastrointestinal General gastrointestinal: Present: normal bowel sounds, soft - Integumentary Integumentary: Present: pale - Neurologic Neurologic: Present: CNII-XII intact - Psychiatric Psychiatric: Present: appropriate affect, intact judgment & insight - Labs CBC & Chem 7: 01/08/20 07:58 01/08/20 07:58 Labs: Abnormal Lab Results - Last 24 Hours (Table) 01/07/20 01/08/20 01/08/20 Range/Units 20:50 07:04 07:58 WBC 12.7 H (3.8-10.6) k/uL RBC 3.28 L (3.80-5.40) m/uL Hgb 7.7 L (11.4-16.0) gm/dL Hct 27.1 L (34.0-46.0) % MCH 23.6 L (25.0-35.0) pg MCHC 28.6 L (31.0-37.0) g/dL RDW 18.1 H (11.5-15.5) % Plt Count 457 H (150-450) k/uL Neutrophils # 9.8 H (1.3-7.7) k/uL Sodium (137-145) mmol/L BUN (7-17) mg/dL Glucose (74-99) mg/dL POC Glucose (mg/dL) 164 H 115 H (75-99) mg/dL 01/08/20 01/08/20 01/08/20 Range/Units 07:58 11:27 17:23 WBC (3.8-10.6) k/uL RBC (3.80-5.40) m/uL Hgb (11.4-16.0) gm/dL Hct (34.0-46.0) % MCH (25.0-35.0) pg MCHC (31.0-37.0) g/dL RDW (11.5-15.5) % Plt Count (150-450) k/uL Neutrophils # (1.3-7.7) k/uL Sodium 132 L (137-145) mmol/L BUN 20 H (7-17) mg/dL Glucose 108 H (74-99) mg/dL POC Glucose (mg/dL) 132 H 106 H (75-99) mg/dL Assessment and Plan (1) Fracture of hip Narrative/Plan: Admitted for the same, s/p Orthopedic intervention. Rehabilitation planned. Current Visit: Yes Status: Acute Priority: High Code(s): S72.009A - FRACTURE OF UNSP PART OF NECK OF UNSP FEMUR, INIT SNOMED Code(s): 546455896 (2) Breast mass Current Visit: Yes Status: Acute Priority: High Code(s): N63.0 - UN SPECIFIED LUMP IN UNSPECIFIED BREAST SNOMED Code(s): 75299610 (3) Bone lesion Current Visit: Yes Status: Acute Priority: High Code(s): M89.9 - DISORDER OF BONE, UNSPECIFIED SNOMED Code(s): 91058739 (4) Microcytic hypochromic anemia Narrative/Plan: Iron deficiency after lab testing. IV iron given. GI work up in the future may be in order Current Visit: Yes Status: Acute Priority: High Code(s): D50.9 - IRON DEFICIENCY ANEMIA, UNSPECIFIED SNOMED Code(s): 53758711 Plan: Pt has metastatic right breast cancer with involvement of rt axilla, metastasis to lung, liver, perihepatic LN and bones. Stage IV malignancy, not curable but, certainly treatable. Was reviewed with pt previously. Today, explained to patient today that ER/SD were both 91-100%, HER-2 1+ by IHC. Patient was started on aromatase inhibitor yesterday. Hopefully patient will be able to continue at rehabilitation Patient encouraged to participate fully in rehabilitation. The stronger she is the better she will handle further systemic treatment. Pt understands that during rehabilitation she will not be able to receive chemotherapy/targeted therapy treatment for her cancer. Typically there are not any problems with AI Tx, will have to be cleared through the rehabilitation facility Agree with rehab KRISTIN F/U with Dr. Ibarra scheduled
[2020-01-08] MEDS: HYDROcodone/APAP 5-325MG 1 EACH TAB PO PRN (18:59)
[2020-01-08] MEDS: ONDANSETRON 4 MG/2 ML VIAL IVP PRN (19:01)
[2020-01-08 20:40] LABS: Glucose,Whole Blood 194 mg/dL (75-99)
[2020-01-08] MEDS: ATORVASTATIN 20 MG TAB PO SCH (20:41)
[2020-01-08] MEDS: SENNOSIDES-DOCUSATE SODIUM 1 EACH TAB PO SCH (20:41)
[2020-01-08] MEDS: HYDROmorphone 0.5 MG/0.5 ML SYRINGE IVP PRN (22:28)
[2020-01-09] MEDS: HYDROcodone/APAP 5-325MG 1 EACH TAB PO PRN ×3 (02:55→20:24)
[2020-01-09 07:11] LABS: Glucose,Whole Blood 148 mg/dL (75-99)
[2020-01-09] MEDS: HEPARIN SODIUM,PORCINE 5,000 UNIT/ML 1 ML VIAL SQ SCH ×2 (07:46→20:21)
[2020-01-09] MEDS: ASPIRIN 325 MG TAB PO SCH (07:46)
[2020-01-09] MEDS: HYDROmorphone 0.5 MG/0.5 ML SYRINGE IVP PRN (07:47)
[2020-01-09] MEDS: METOPROLOL TARTRATE 50 MG TAB PO SCH (07:47)
[2020-01-09] MEDS: POTAS-SOD-PHOS 278-164-250 MG 1 EACH PACKET PO SCH ×2 (07:47→20:21)
[2020-01-09] MEDS: LISINOPRIL-HCTZ 10-12.5 MG 1 EACH TAB PO SCH ×2 (07:47→20:21)
[2020-01-09] MEDS: LETROZOLE 2.5 MG TAB PO SCH (07:47)
--- NOTE | 2020-01-09 11:00 | P.DS ---
Providers Date of admission: 12/31/19 22:20 Expected date of discharge: 01/09/20 Attending physician: Javid Callaway Consults: 12/31/19 22:20 Consult Physician Routine Consulting Provider: Javid Callaway Consult Reason/Comments: [facility]clear Do you want consulting provider notified?: Yes 01/01/20 10:12 Consult Physician Routine Consulting Provider: [facility] Consult Reason/Comments: abnormal EKG, elevated trops, Hypertensive Do you want consulting provider notified?: Yes 01/03/20 11:43 Consult Physician Routine Consulting Provider: Gabriele Ibarra Consult Reason/Comments: possible neoplasm on catscan Do you want consulting provider notified?: Yes 01/04/20 05:26 Consult Physician Routine Consulting Provider: Andrea Dewitt Consult Reason/Comments: abnormal brain CT Do you want consulting provider notified?: Yes 01/05/20 15:57 Consult Physician Routine Consulting Provider: Minda Dawn Consult Reason/Comments: high trops Do you want consulting provider notified?: Yes 01/06/20 08:02 Consult Physician Routine Consulting Provider: Phuc Gillette Consult Reason/Comments: resume post op care Do you want consulting provider notified?: Already Contacted 01/06/20 14:18 Consult Physician Routine Consulting Provider: Gabino Rodriguez Consult Reason/Comments: Radiation to painful bone mets or skull lesion Do you want consulting provider notified?: Already Contacted Primary care [facility] Course: - Chief Complaint Right hip fracture History of presenting complaint: This is a 74-year-old patient of Dr. zamarripa. Chronic stable medical conditions include diabetes, hypertension, rheumatoid arthritis, varicose veins. For last few days patient is joints have been bothering her and affect in different joints including the hips and knees. Patient has been dizzy for about a week. Decreased appetite. For 3 days been having nausea vomiting. She was working on the computer was getting off the chair lost her balance fell down. Injuring her right hip. -right hip fracture. Denies any chest pain no palpitation. Unable to take her medications and she came in her blood pressures running high over 200 systolic. some troponin leak. Very subtle EKG changes.. No abdominal pain. No diarrhea. On January 02-underwent ORIF and IM nailing. CT chest-showed multiple pulmonary nodules. No lymphadenopathy. And suggestive breast neoplasm. Computed tomography scan brain-cerebral atrophy, osteolytic lesions in the skull.. CT angiogram of the brain was negative. Nuclear bone scan did confirm osseous metastasis. Patient working with physical therapy. Does get pain in the right hip at the same. Patient was started on Femara. Today-sitting up in a chair. Discussed with the patient. Did explain that the stronger she does with therapy the better chances her outcome with chemotherapy. We will go to rehab today. Spoke with [facility] liaison. Did try to reach the daughter on the phone. No answer. We'll try again Discussion and discharge planning more than 35 minutes Consultants: Dr. Jose Corrigan from radiation oncology Dr. Ibarra from oncology Dr. Gillette from orthopedic associates Dr. Redd Cavanaugh from cardiology Physical examination: VITAL SIGNS: 98.4, 62, 18, 135/73, 93% on room air GENERAL: Sitting up in a chair, awake EYES: Pupils equal. Conjunctiva normal. HEENT: External appearance of nose and ears normal, oral cavity grossly normal. NECK: JVD not raised; masses not palpable. HEART: First and second heart sounds are normal; no edema. LUNGS: Respiratory rate normal; slightly decreased breath sound. ABDOMEN: Soft, nontender, liver spleen not palpable, no masses palpable. PSYCH: Alert and oriented x3; mood and affect anxious. MUSCULOSKELETAL: Evidence of OA in the hands, INVESTIGATIONS, reviewed in the clinical context: White count 12.7 hemoglobin 7.7 potassium 4.4 creatinine 0.71 Previous testing White count 14.5 hemoglobin 12 repeat 10.5 today to see 53 potassium 4.1 creatinine 0.68 Troponin I 0.043, 0.048 EKG tracing personally reviewed by me-Q waves in inferior leads Chest x-ray film-questionable infiltrate versus interstitial lung finding. Right hip x-ray-acute subtrochanteric right femur fracture 2-D echo-EF 60-65%, concentric LVH, moderate pulmonic regurgitation Iron 20, TIBC 281, iron saturation low at 7.12 CA 15-300s and increased at 494, CA 27-[address] chest abdomen pelvis-numerous bilateral pulmonary nodules, right breast mass, lymphadenopathy, mass within the inferior right hepatic lobe and some satellite density. Some intrahepatic biliary dilatation Nuclear bone scan-showing confirmation of osseous metastatic disease Assessment: -Acute subtrochanteric right femur fracture secondary to fall followed by ORIF and IM nailing -Extensive metastatic disease suspected from breast cancer extending into the bones, lungs and the liver -Rheumatoid arthritis, chronic -Obesity BMI 30.3 -Hypertensive heart disease -Moderate pulmonic regurgitation -Essential hypertension -Diabetes mellitus type 2 on oral hypoglycemic Disposition: F/[facility] Patient Condition at Discharge: Undetermined Plan - Discharge Summary New Discharge Prescriptions: New Letrozole [Femara] 2.5 mg PO DAILY tab Atorvastatin [Lipitor] 20 mg PO HS tab Metoprolol Tartrate [Lopressor] 75 mg PO TID tab Sennosides-Docusate Sodium [Senokot-S] 2 each PO HS tab Lisinopril-Hctz 10-12.5 mg [Zestoretic 10-12.5] 1 each PO BID tab Continue Ergocalciferol [Vitamin D2 (DRISDOL)] 50,000 unit PO Q7D Allopurinol [Zyloprim] 100 mg PO DAILY HYDROcodone/APAP 5-325MG [[place] 5-325] 1 tab PO Q8H #9 tab Discontinued predniSONE 10 mg PO DAILY glipiZIDE XL [Glucotrol Xl] 5 mg PO DAILY Atenolol 200 mg PO DAILY Lisinopril [Prinivil] 20 mg PO DAILY Discharge Medication List Allopurinol [Zyloprim] 100 mg PO DAILY 12/31/19 [History] Ergocalciferol [Vitamin D2 (DRISDOL)] 50,000 unit PO Q7D 12/31/19 [History] Atorvastatin [Lipitor] 20 mg PO HS tab 01/09/20 [Rx] HYDROcodone/APAP 5-325MG [[place] 5-325] 1 tab PO Q8H #9 tab 01/09/20 [Rx] Letrozole [Femara] 2.5 mg PO DAILY tab 01/09/20 [Rx] Lisinopril-Hctz 10-12.5 mg [Zestoretic 10-12.5] 1 each PO BID tab 01/09/20 [Rx] Metoprolol Tartrate [Lopressor] 75 mg PO TID tab 01/09/20 [Rx] Sennosides-Docusate Sodium [Senokot-S] 2 each PO HS tab 01/09/20 [Rx] Follow up Appointment(s)/Referral(s): Reji Cavanaugh MD [STAFF PHYSICIAN] - 2 Weeks Gabriele Ibarra MD [STAFF PHYSICIAN] - 01/30/20 11:15 am (this appointment is at the [facility], second floor, [facility]) Yimi Falk DO [STAFF PHYSICIAN] - 1-2 Days Roby Zamarripa MD [Primary Care Provider] - As Needed Activity/Diet/Wound Care/Special Instructions: medications from home are in the inpatient pharmacy
[2020-01-09 12:18] LABS: Glucose,Whole Blood 137 mg/dL (75-99)
[2020-01-09] MEDS: METOPROLOL TARTRATE 25 MG TAB PO SCH ×2 (15:35→20:23)
[2020-01-09] MEDS: diphenhydrAMINE 25 MG CAP PO PRN (15:39)
[2020-01-09 16:47] LABS: Glucose,Whole Blood 148 mg/dL (75-99)
[2020-01-09] MEDS: ATORVASTATIN 20 MG TAB PO SCH (20:21)
[2020-01-09] MEDS: SENNOSIDES-DOCUSATE SODIUM 1 EACH TAB PO SCH (20:21)
[2020-01-09 20:24] LABS: Glucose,Whole Blood 154 mg/dL (75-99)
--- NOTE | 2020-01-09 20:31 | P.PN ---
Progress Note - Text Progress Note Date: 01/09/20 - Chief Complaint Right hip fracture History of presenting complaint: This is a 74-year-old patient of Dr. bosch. Chronic stable medical conditions include diabetes, hypertension, rheumatoid arthritis, varicose veins. For last few days patient is joints have been bothering her and affect in different joints including the hips and knees. Patient has been dizzy for about a week. Decreased appetite. For 3 days been having nausea vomiting. She was working on the computer was getting off the chair lost her balance fell down. Injuring her right hip. -right hip fracture. Denies any chest pain no palpitation. Unable to take her medications and she came in her blood pressures running high over 200 systolic. some troponin leak. Very subtle EKG changes.. No abdominal pain. No diarrhea. On January 02-underwent ORIF and IM nailing. CT chest-showed multiple pulmonary nodules. No lymphadenopathy. And suggestive breast neoplasm. Computed tomography scan brain-cerebral atrophy, Sebas lytic lesions in the skull. And soft tissue density masses chest expansile. CT angiogram of the brain was negative. Today-Intermittent pain is present in the right hip with therapy. Discussed with the patient this morning. Reasonable for therapy. 2 rehab. Review of systems: Was done for constitutional, cardiovascular, GI, pulmonary. relevant finding as above Active Medications Hydrocodone Bitart/Acetaminophen ([place] 5-325) 2 each PO Q6HR PRN PRN Reason: Pain Scale 6 to 10 Last Admin: 01/09/20 20:24 Dose: 2 each Documented by: Hydrocodone Bitart/Acetaminophen ([place] 5-325) 1 each PO Q4HR PRN PRN Reason: Pain Scale 1 to 5 Last Admin: 01/05/20 14:52 Dose: 1 each Documented by: Aspirin (Aspirin) 325 mg PO DAILY [facility] Last Admin: 01/09/20 07:46 Dose: 325 mg Documented by: Atorvastatin Calcium (Lipitor) 20 mg PO HS [facility] Last Admin: 01/09/20 20:21 Dose: 20 mg Documented by: Diphenhydramine HCl (Benadryl) 25 mg PO QID PRN PRN Reason: Itching Last Admin: 01/09/20 15:39 Dose: 25 mg Documented by: Lisinopril/HCTZ (Zestoretic 10-12.5) 1 each PO BID [facility] Last Admin: 01/09/20 20:21 Dose: 1 each Documented by: Heparin Sodium (Porcine) (Heparin) 5,000 unit SQ Q12HR [facility] Last Admin: 01/09/20 20:21 Dose: 5,000 unit Documented by: Hydromorphone HCl (Dilaudid) 1 mg IVP Q4HR PRN PRN Reason: Pain Last Admin: 01/03/20 16:07 Dose: 1 mg Documented by: Hydromorphone HCl (Dilaudid) 0.125 mg IVP Q3HR PRN PRN Reason: Pain Scale 1 to 3 Hydromorphone HCl (Dilaudid) 0.25 mg IVP Q3HR PRN PRN Reason: Pain Scale 4 to 6 Last Admin: 01/08/20 09:19 Dose: 0.25 mg Documented by: Hydromorphone HCl (Dilaudid) 0.5 mg IVP Q3HR PRN PRN Reason: Pain Scale 7 to 10 Last Admin: 01/09/20 07:47 Dose: 0.5 mg Documented by: Promethazine HCl 25 mg/ Sodium (Chloride) 51 mls @ 200 mls/hr IVPB Q6HR PRN PRN Reason: Nausea Last Admin: 01/01/20 08:52 Dose: 200 mls/hr Documented by: Letrozole (Femara) 2.5 mg PO DAILY [facility] Last Admin: 01/09/20 07:47 Dose: 2.5 mg Documented by: Magnesium Hydroxide (Milk Of Magnesia) 2,400 mg PO DAILY PRN PRN Reason: Constipation Metoclopramide HCl (Reglan) 5 mg IVP Q6HR PRN PRN Reason: Nausea And Vomiting Last Admin: 01/08/20 14:19 Dose: 5 mg Documented by: Metoprolol Tartrate (Lopressor) 75 mg PO TID [facility] Last Admin: 01/09/20 20:23 Dose: 75 mg Documented by: Naloxone HCl (Narcan) 0.2 mg IV Q2M PRN PRN Reason: Opioid Reversal Ondansetron HCl (Zofran) 4 mg IVP Q6HR PRN PRN Reason: Nausea And Vomiting Last Admin: 01/08/20 19:01 Dose: 4 mg Documented by: Potassium Phos/Sodium Phos (Neutra-Phos Packet) 1 each PO BID [facility] Last Admin: 01/09/20 20:21 Dose: 1 each Documented by: Senna/Docusate Sodium (Senokot-S) 2 each PO HS [facility]Y Last Admin: 01/09/20 20:21 Dose: 2 each Documented by: Temazepam (Restoril) 15 mg PO HS PRN PRN Reason: Insomnia Tramadol HCl (Ultram) 50 mg PO Q6H PRN PRN Reason: Moderate Pain Last Admin: 01/08/20 11:12 Dose: 50 mg Documented by: Tramadol HCl (Ultram) 100 mg PO Q6H PRN PRN Reason: Severe Pain Last Admin: 01/06/20 16:02 Dose: 100 mg Documented by: Physical examination: VITAL SIGNS: 97.4, 60, 18, 130/85, 99% on room air GENERAL: Sitting up in a chair, but anxious EYES: Pupils equal. Conjunctiva normal. HEENT: External appearance of nose and ears normal, oral cavity grossly normal. NECK: JVD not raised; masses not palpable. HEART: First and second heart sounds are normal; no edema. LUNGS: Respiratory rate normal; slightly decreased breath sound. ABDOMEN: Soft, nontender, liver spleen not palpable, no masses palpable. PSYCH: Alert and oriented x3; mood and affect anxious. MUSCULOSKELETAL: Evidence of OA in the hands, INVESTIGATIONS, reviewed in the clinical context: White count 12.7 hemoglobin 7.7 potassium 4.4 creatinine 0.71 Previous testing White count 14.5 hemoglobin 12 repeat 10.5 today to see 53 potassium 4.1 creatinine 0.68 Troponin I 0.043, 0.048 EKG tracing personally reviewed by me-Q waves in inferior leads Chest x-ray film-questionable infiltrate versus interstitial lung finding. Right hip x-ray-acute subtrochanteric right femur fracture 2-D echo-EF 60-65%, concentric LVH, moderate pulmonic regurgitation Iron 20, TIBC 281, iron saturation low at 7.12 CA 15-300s and increased at 494, CA 27-[address] chest abdomen pelvis-numerous bilateral pulmonary nodules, right breast mass, lymphadenopathy, mass within the inferior right hepatic lobe and some satellite density. Some intrahepatic biliary dilatation Nuclear bone scan-showing confirmation of osseous metastatic disease Assessment: -Acute subtrochanteric right femur fracture secondary to fall followed by ORIF and IM nailing -Extensive metastatic disease suspected from breast cancer extending into the bones, lungs and the liver -Rheumatoid arthritis, chronic -Obesity BMI 30.3 -Hypertensive heart disease -Moderate pulmonic regurgitation -Hypertensive urgency -Diabetes mellitus type 2 on oral hypoglycemic Plan: Arrangements were made for the patient to go to the [facility] today. At [facility] patient earlier today. Late in the afternoon the daughter spoke to the oncology team. I then discovered that patient has appealed the discharge. patient is being held back. We'll talk the patient again tomorrow. Other medications to continue.
[2020-01-10] MEDS: diphenhydrAMINE 25 MG CAP PO PRN ×3 (05:17→22:36)
[2020-01-10] MEDS: HYDROcodone/APAP 5-325MG 1 EACH TAB PO PRN ×3 (05:20→22:37)
[2020-01-10 07:16] LABS: Glucose,Whole Blood 113 mg/dL (75-99)
[2020-01-10] MEDS: LETROZOLE 2.5 MG TAB PO SCH (09:26)
[2020-01-10] MEDS: LISINOPRIL-HCTZ 10-12.5 MG 1 EACH TAB PO SCH ×2 (09:26→21:41)
[2020-01-10] MEDS: ASPIRIN 325 MG TAB PO SCH (09:26)
[2020-01-10] MEDS: METOPROLOL TARTRATE 25 MG TAB PO SCH ×3 (09:26→21:41)
[2020-01-10] MEDS: HEPARIN SODIUM,PORCINE 5,000 UNIT/ML 1 ML VIAL SQ SCH ×2 (09:26→21:41)
[2020-01-10] MEDS: POTAS-SOD-PHOS 278-164-250 MG 1 EACH PACKET PO SCH ×2 (09:27→21:41)
--- NOTE | 2020-01-10 10:25 | P.PN ---
Subjective Progress Note Date: 01/10/20 Principal diagnosis: Subtrochanteric fracture right femur. Status post open reduction internal fixation right femur with long IT nail. Metastatic breast cancer. This is a 74-year-old female with history of subtrochanteric fracture of the right femur. She is postop open reduction internal fixation with long IT nail right femur on 01/02/2020. She has had brain and chest, abdomen and pelvis CT which show findings suspicious for metastatic breast cancer. Pathology report is positive for metastatic breast disease. She she is stable from an orthopedic standpoint. Family contested her discharge yesterday. Objective - Vital Signs Vital signs: Vital Signs Temp 98.2 F 01/10/20 05:00 Pulse 75 01/10/20 05:00 Resp 17 01/10/20 05:00 BP 162/71 01/10/20 05:00 Pulse Ox 95 01/10/20 05:00 Intake & Output 01/09/20 01/10/20 01/10/20 18:59 06:59 18:59 Intake Total 360 Balance 360 Intake: Oral 360 Other: Voiding Method Bedside Commode Bedside Commode Diaper Diaper # Bowel Movements 1 - Exam This is a 74-year-old female in no acute distress. She is alert with some confusion today. Exam of the head reveals a palpable mass on the superior posterior aspect of the scalp. Exam of the right lower extremity revealed that the Dermabond tape in place. She has full foot and ankle motion without difficulty or pain. She is unable to lift the leg independently off the bed. Pedal pulse is +1/4. Neurovascular status to the lower extremity is intact. - Labs CBC & Chem 7: 01/08/20 07:58 01/08/20 07:58 Labs: Abnormal Lab Results - Last 24 Hours (Table) 01/09/20 01/09/20 01/09/20 Range/Units 12:17 16:46 20:23 POC Glucose (mg/dL) 137 H 148 H 154 H (75-99) mg/dL 01/10/20 Range/Units 07:05 POC Glucose (mg/dL) 113 H (75-99) mg/dL Assessment and Plan (1) Subtrochanteric fracture of right femur Current Visit: Yes Status: Acute Code(s): S72.21XA - DISPLACED SUBTROCHANTERIC FRACTURE OF RIGHT FEMUR, INIT SNOMED Code(s): 312259692 (2) Fracture of hip Current Visit: Yes Status: Acute Priority: High Code(s): S72.009A - FRACTURE OF UNSP PART OF NECK OF UNSP FEMUR, INIT SNOMED Code(s): 467181642 (3) Right femoral fracture Current Visit: Yes Status: Acute Code(s): S72.91XA - UNSP FRACTURE OF RIGHT FEMUR, INIT FOR CLOS FX SNOMED Code(s): 03752417 (4) Dizziness, nonspecific Current Visit: Yes Status: Acute Code(s): R42 - DIZZINESS AND GIDDINESS SNOMED Code(s): 980958006 (5) History of open reduction and internal fixation (ORIF) procedure Current Visit: Yes Status: Acute Code(s): Z98.890 - OTHER SPECIFIED POSTPROCEDURAL STATES SNOMED Code(s): 881411864 (6) Bone lesion Current Visit: Yes Status: Acute Priority: High Code(s): M89.9 - DISORDER OF BONE, UNSPECIFIED SNOMED Code(s): 30452044 (7) Breast mass Current Visit: Yes Status: Acute Priority: High Code(s): N63.0 - UNSPECIF IED LUMP IN UNSPECIFIED BREAST SNOMED Code(s): 90123041 Plan: The clinical findings are discussed with the nursing staff She is nonweightbearing to the right lower extremity. We will continue to follow peripherally.
[2020-01-10 11:36] LABS: Glucose,Whole Blood 123 mg/dL (75-99)
[2020-01-10 16:52] LABS: Glucose,Whole Blood 133 mg/dL (75-99)
--- NOTE | 2020-01-10 16:56 | P.PN ---
Progress Note - Text Progress Note Date: 01/10/20 - Chief Complaint Right hip fracture History of presenting complaint: This is a 74-year-old patient of Dr. bosch. Chronic stable medical conditions include diabetes, hypertension, rheumatoid arthritis, varicose veins. For last few days patient is joints have been bothering her and affect in different joints including the hips and knees. Patient has been dizzy for about a week. Decreased appetite. For 3 days been having nausea vomiting. She was working on the computer was getting off the chair lost her balance fell down. Injuring her right hip. -right hip fracture. Denies any chest pain no palpitation. Unable to take her medications and she came in her blood pressures running high over 200 systolic. some troponin leak. Very subtle EKG changes.. No abdominal pain. No diarrhea. On January 02-underwent ORIF and IM nailing. CT chest-showed multiple pulmonary nodules. No lymphadenopathy. And suggestive breast neoplasm. Computed tomography scan brain-cerebral atrophy, Sebas lytic lesions in the skull. And soft tissue density masses chest expansile. CT angiogram of the brain was negative. Today-no new issues. Patient's daughter yesterday and contest and discharged to Medicare. Laying in bed. Intermittent pain present. Tolerate some diet. Review of systems: Was done for constitutional, cardiovascular, GI, pulmonary. relevant finding as above Active Medications Hydrocodone Bitart/Acetaminophen ([place] 5-325) 2 each PO Q6HR PRN PRN Reason: Pain Scale 6 to 10 Last Admin: 01/10/20 13:06 Dose: 2 each Documented by: Hydrocodone Bitart/Acetaminophen ([place] 5-325) 1 each PO Q4HR PRN PRN Reason: Pain Scale 1 to 5 Last Admin: 01/05/20 14:52 Dose: 1 each Documented by: Aspirin (Aspirin) 325 mg PO DAILY [facility] Last Admin: 01/10/20 09:26 Dose: 325 mg Documented by: Atorvastatin Calcium (Lipitor) 20 mg PO HS [facility] Last Admin: 01/09/20 20:21 Dose: 20 mg Documented by: Diphenhydramine HCl (Benadryl) 25 mg PO QID PRN PRN Reason: Itching Last Admin: 01/10/20 13:06 Dose: 25 mg Documented by: Lisinopril/HCTZ (Zestoretic 10-12.5) 1 each PO BID [facility] Last Admin: 01/10/20 09:26 Dose: 1 each Documented by: Heparin Sodium (Porcine) (Heparin) 5,000 unit SQ Q12HR [facility] Last Admin: 01/10/20 09:26 Dose: 5,000 unit Documented by: Hydromorphone HCl (Dilaudid) 1 mg IVP Q4HR PRN PRN Reason: Pain Last Admin: 01/03/20 16:07 Dose: 1 mg Documented by: Hydromorphone HCl (Dilaudid) 0.125 mg IVP Q3HR PRN PRN Reason: Pain Scale 1 to 3 Hydromorphone HCl (Dilaudid) 0.25 mg IVP Q3HR PRN PRN Reason: Pain Scale 4 to 6 Last Admin: 01/08/20 09:19 Dose: 0.25 mg Documented by: Hydromorphone HCl (Dilaudid) 0.5 mg IVP Q3HR PRN PRN Reason: Pain Scale 7 to 10 Last Admin: 01/09/20 07:47 Dose: 0.5 mg Documented by: Promethazine HCl 25 mg/ Sodium (Chloride) 51 mls @ 200 mls/hr IVPB Q6HR PRN PRN Reason: Nausea Last Admin: 01/01/20 08:52 Dose: 200 mls/hr Documented by: Letrozole (Femara) 2.5 mg PO DAILY [facility] Last Admin: 01/10/20 09:26 Dose: 2.5 mg Documented by: Magnesium Hydroxide (Milk Of Magnesia) 2,400 mg PO DAILY PRN PRN Reason: Constipation Metoclopramide HCl (Reglan) 5 mg IVP Q6HR PRN PRN Reason: Nausea And Vomiting Last Admin: 01/08/20 14:19 Dose: 5 mg Documented by: Metoprolol Tartrate (Lopressor) 75 mg PO TID [facility] Last Admin: 01/10/20 09:26 Dose: 75 mg Documented by: Naloxone HCl (Narcan) 0.2 mg IV Q2M PRN PRN Reason: Opioid Reversal Ondansetron HCl (Zofran) 4 mg IVP Q6HR PRN PRN Reason: Nausea And Vomiting Last Admin: 01/08/20 19:01 Dose: 4 mg Documented by: Potassium Phos/Sodium Phos (Neutra-Phos Packet) 1 each PO BID [facility] Last Admin: 01/10/20 09:27 Dose: 1 each Documented by: Senna/Docusate Sodium (Senokot-S) 2 each PO HS [facility] Last Admin: 01/09/20 20:21 Dose: 2 each Documented by: Temazepam (Restoril) 15 mg PO HS PRN PRN Reason: Insomnia Tramadol HCl (Ultram) 50 mg PO Q6H PRN PRN Reason: Moderate Pain Last Admin: 01/08/20 11:12 Dose: 50 mg Documented by: Tramadol HCl (Ultram) 100 mg PO Q6H PRN PRN Reason: Severe Pain Last Admin: 01/06/20 16:02 Dose: 100 mg Documented by: Physical examination: VITAL SIGNS: 98.6, 67, 16, 144/68, 97% on room air GENERAL: Laying in bed, awake EYES: Pupils equal. Conjunctiva normal. HEENT: External appearance of nose and ears normal, oral cavity grossly normal. NECK: JVD not raised; masses not palpable. HEART: First and second heart sounds are normal; no edema. LUNGS: Respiratory rate normal; slightly decreased breath sound. ABDOMEN: Soft, nontender, liver spleen not palpable, no masses palpable. PSYCH: Alert and oriented x3; mood and affect anxious. MUSCULOSKELETAL: Evidence of OA in the hands, INVESTIGATIONS, reviewed in the clinical context: White count 12.7 hemoglobin 7.7 potassium 4.4 creatinine 0.71 Previous testing White count 14.5 hemoglobin 12 repeat 10.5 today to see 53 potassium 4.1 creatinine 0.68 Troponin I 0.043, 0.048 EKG tracing personally reviewed by me-Q waves in inferior leads Chest x-ray film-questionable infiltrate versus interstitial lung finding. Right hip x-ray-acute subtrochanteric right femur fracture 2-D echo-EF 60-65%, concentric LVH, moderate pulmonic regurgitation Iron 20, TIBC 281, iron saturation low at 7.12 CA 15-300s and increased at 494, CA 27-[address] chest abdomen pelvis-numerous bilateral pulmonary nodules, right breast mass, lymphadenopathy, mass within the inferior right hepatic lobe and some satellite density. Some intrahepatic biliary dilatation Nuclear bone scan-showing confirmation of osseous metastatic disease Assessment: -Acute subtrochanteric right femur fracture secondary to fall followed by ORIF and IM nailing -Extensive metastatic disease suspected from breast cancer extending into the bones, lungs and the liver -Rheumatoid arthritis, chronic -Obesity BMI 30.3 -Hypertensive heart disease -Moderate pulmonic regurgitation -Hypertensive urgency -Diabetes mellitus type 2 on oral hypoglycemic Plan: Dyspneic at length with the patient and explained again to her that is important for her to get physical therapy to become stronger did tolerate any systemic treatment for the cancer. Patient did express understanding of the same. Also spoke to patient's daughter over the phone. Also spoke to the business case analyst. We will await for Sunday so that rehab can happen. Total time spent today about 45 minutes with over 25 minutes of discussion
[2020-01-10 17:09] LABS: Appearance,Urine Turbid (Clear); Bacteria,Urine Moderate /hpf; Bilirubin,Urine Negative (Negative); Blood,Urine Trace (Negative); Color,Urine Yellow; Glucose,Urine (UA) Negative (Negative); Hyaline Casts,Urine 6 /lpf (0-2); Hyphae Yeast, Urine Rare /hpf; Ketones,Urine Negative (Negative); Leukocyte Esterase,Urine Large (Negative); Mucus,Urine Rare /hpf; Nitrite,Urine Negative (Negative); PH, Urine 5.5 (5.0-8.0); Protein,Urine Trace (Negative); RBC,Urine 13 /hpf (0-5); Specific Gravity,Urine 1.018 (1.001-1.035); Squamous Epithelial Cell,Urine 9 /hpf (0-4); WBC,Urine 68 /hpf (0-5)
[2020-01-10] MEDS: CEPHALEXIN 250 MG CAP PO SCH ×2 (17:53→21:41)
[2020-01-10 20:22] LABS: Glucose,Whole Blood 107 mg/dL (75-99)
[2020-01-10] MEDS: ATORVASTATIN 20 MG TAB PO SCH (21:41)
[2020-01-10] MEDS: SENNOSIDES-DOCUSATE SODIUM 1 EACH TAB PO SCH (21:42)
[2020-01-11 06:51] LABS: Glucose,Whole Blood 111 mg/dL (75-99)
[2020-01-11] MEDS: HYDROcodone/APAP 5-325MG 1 EACH TAB PO PRN ×3 (07:11→20:12)
[2020-01-11] MEDS: ASPIRIN 325 MG TAB PO SCH (07:11)
[2020-01-11] MEDS: HEPARIN SODIUM,PORCINE 5,000 UNIT/ML 1 ML VIAL SQ SCH ×2 (07:12→20:45)
[2020-01-11] MEDS: METOPROLOL TARTRATE 25 MG TAB PO SCH ×3 (07:13→20:46)
[2020-01-11] MEDS: POTAS-SOD-PHOS 278-164-250 MG 1 EACH PACKET PO SCH ×2 (07:13→20:45)
[2020-01-11] MEDS: diphenhydrAMINE 25 MG CAP PO PRN ×3 (07:13→20:13)
[2020-01-11] MEDS: CEPHALEXIN 250 MG CAP PO SCH ×4 (07:14→20:45)
[2020-01-11] MEDS: LISINOPRIL-HCTZ 10-12.5 MG 1 EACH TAB PO SCH ×2 (07:14→20:45)
[2020-01-11] MEDS: LETROZOLE 2.5 MG TAB PO SCH (07:14)
[2020-01-11 12:24] LABS: Glucose,Whole Blood 142 mg/dL (75-99)
[2020-01-11 17:35] LABS: Glucose,Whole Blood 138 mg/dL (75-99)
[2020-01-11] MEDS: SENNOSIDES-DOCUSATE SODIUM 1 EACH TAB PO SCH (20:24)
[2020-01-11 20:38] LABS: Glucose,Whole Blood 166 mg/dL (75-99)
[2020-01-11] MEDS: ATORVASTATIN 20 MG TAB PO SCH (20:46)
--- NOTE | 2020-01-11 20:49 | P.PN ---
Progress Note - Text Progress Note Date: 01/11/20 - Chief Complaint Right hip fracture History of presenting complaint: This is a 74-year-old patient of Dr. bosch. Chronic stable medical conditions include diabetes, hypertension, rheumatoid arthritis, varicose veins. For last few days patient is joints have been bothering her and affect in different joints including the hips and knees. Patient has been dizzy for about a week. Decreased appetite. For 3 days been having nausea vomiting. She was working on the computer was getting off the chair lost her balance fell down. Injuring her right hip. -right hip fracture. Denies any chest pain no palpitation. Unable to take her medications and she came in her blood pressures running high over 200 systolic. some troponin leak. Very subtle EKG changes.. No abdominal pain. No diarrhea. On January 02-underwent ORIF and IM nailing. CT chest-showed multiple pulmonary nodules. No lymphadenopathy. And suggestive breast neoplasm. Computed tomography scan brain-cerebral atrophy, Sebas lytic lesions in the skull. And soft tissue density masses chest expansile. CT angiogram of the brain was negative. Today-laying bed. More comfortable. Tolerating her diet Review of systems: Was done for constitutional, cardiovascular, GI, pulmonary. relevant finding as above Active Medications Hydrocodone Bitart/Acetaminophen (Nenzel 5-325) 2 each PO Q6HR PRN PRN Reason: Pain Scale 6 to 10 Last Admin: 01/11/20 20:12 Dose: 2 each Documented by: Hydrocodone Bitart/Acetaminophen (Nenzel 5-325) 1 each PO Q4HR PRN PRN Reason: Pain Scale 1 to 5 Last Admin: 01/05/20 14:52 Dose: 1 each Documented by: Aspirin (Aspirin) 325 mg PO DAILY [facility] Last Admin: 01/11/20 07:11 Dose: 325 mg Documented by: Atorvastatin Calcium (Lipitor) 20 mg PO HS [facility] Last Admin: 01/10/20 21:41 Dose: 20 mg Documented by: Cephalexin (Keflex) 250 mg PO QID [facility] Last Admin: 01/11/20 17:08 Dose: 250 mg Documented by: Diphenhydramine HCl (Benadryl) 25 mg PO QID PRN PRN Reason: Itching Last Admin: 01/11/20 20:13 Dose: 25 mg Documented by: Lisinopril/HCTZ (Zestoretic -12.5) 1 each PO BID [facility] Last Admin: 01/11/20 07:14 Dose: 1 each Documented by: Heparin Sodium (Porcine) (Heparin) 5,000 unit SQ Q12HR [facility] Last Admin: 01/11/20 07:12 Dose: 5,000 unit Documented by: Hydromorphone HCl (Dilaudid) 1 mg IVP Q4HR PRN PRN Reason: Pain Last Admin: 01/03/20 16:07 Dose: 1 mg Documented by: Hydromorphone HCl (Dilaudid) 0.125 mg IVP Q3HR PRN PRN Reason: Pain Scale 1 to 3 Hydromorphone HCl (Dilaudid) 0.25 mg IVP Q3HR PRN PRN Reason: Pain Scale 4 to 6 Last Admin: 01/08/20 09:19 Dose: 0.25 mg Documented by: Hydromorphone HCl (Dilaudid) 0.5 mg IVP Q3HR PRN PRN Reason: Pain Scale 7 to 10 Last Admin: 01/09/20 07:47 Dose: 0.5 mg Documented by: Promethazine HCl 25 mg/ Sodium (Chloride) 51 mls @ 200 mls/hr IVPB Q6HR PRN PRN Reason: Nausea Last Admin: 01/01/20 08:52 Dose: 200 mls/hr Documented by: Letrozole (Femara) 2.5 mg PO DAILY [facility] Last Admin: 01/11/20 07:14 Dose: 2.5 mg Documented by: Magnesium Hydroxide (Milk Of Magnesia) 2,400 mg PO DAILY PRN PRN Reason: Constipation Metoclopramide HCl (Reglan) 5 mg IVP Q6HR PRN PRN Reason: Nausea And Vomiting Last Admin: 01/08/20 14:19 Dose: 5 mg Documented by: Metoprolol Tartrate (Lopressor) 75 mg PO TID [facility] Last Admin: 01/11/20 17:08 Dose: 75 mg Documented by: Naloxone HCl (Narcan) 0.2 mg IV Q2M PRN PRN Reason: Opioid Reversal Ondansetron HCl (Zofran) 4 mg IVP Q6HR PRN PRN Reason: Nausea And Vomiting Last Admin: 01/08/20 19:01 Dose: 4 mg Documented by: Potassium Phos/Sodium Phos (Neutra-Phos Packet) 1 each PO BID [facility] Last Admin: 01/11/20 07:13 Dose: 1 each Documented by: Senna/Docusate Sodium (Senokot-S) 2 each PO HS NANCY Last Admin: 01/11/20 20:24 Dose: Not Given Documented by: Temazepam (Restoril) 15 mg PO HS PRN PRN Reason: Insomnia Tramadol HCl (Ultram) 50 mg PO Q6H PRN PRN Reason: Moderate Pain Last Admin: 01/08/20 11:12 Dose: 50 mg Documented by: Tramadol HCl (Ultram) 100 mg PO Q6H PRN PRN Reason: Severe Pain Last Admin: 01/06/20 16:02 Dose: 100 mg Documented by: Physical examination: VITAL SIGNS: 98.2, 70, 18, 165/73, 97% room air GENERAL: Laying in bed, more comfortable EYES: Pupils equal. Conjunctiva normal. HEENT: External appearance of nose and ears normal, oral cavity grossly normal. NECK: JVD not raised; masses not palpable. HEART: First and second heart sounds are normal; no edema. LUNGS: Respiratory rate normal; slightly decreased breath sound. ABDOMEN: Soft, nontender, liver spleen not palpable, no masses palpable. PSYCH: Alert and oriented x3; mood and affect anxious. MUSCULOSKELETAL: Evidence of OA in the hands, INVESTIGATIONS, reviewed in the clinical context: White count 12.7 hemoglobin 7.7 potassium 4.4 creatinine 0.71 Previous testing White count 14.5 hemoglobin 12 repeat 10.5 today to see 53 potassium 4.1 creatinine 0.68 Troponin I 0.043, 0.048 EKG tracing personally reviewed by me-Q waves in inferior leads Chest x-ray film-questionable infiltrate versus interstitial lung finding. Right hip x-ray-acute subtrochanteric right femur fracture 2-D echo-EF 60-65%, concentric LVH, moderate pulmonic regurgitation Iron 20, TIBC 281, iron saturation low at 7.12 CA 15-300s and increased at 494, CA 27-[address] chest abdomen pelvis-numerous bilateral pulmonary nodules, right breast mass, lymphadenopathy, mass within the inferior right hepatic lobe and some satellite density. Some intrahepatic biliary dilatation Nuclear bone scan-showing confirmation of osseous metastatic disease Assessment: -Acute subtrochanteric right femur fracture secondary to fall followed by ORIF and IM nailing -Extensive metastatic disease suspected from breast cancer extending into the bones, lungs and the liver -Rheumatoid arthritis, chronic -Obesity BMI 30.3 -Hypertensive heart disease -Moderate pulmonic regurgitation -Hypertensive urgency -Diabetes mellitus type 2 on oral hypoglycemic -Acute UTI from cystitis, secondary to [place] catheter Plan: Discussed with patient. Mukherjee to go to rehab tomorrow. Continue current medication treatment plan.
[2020-01-11 21:21] VITALS: RESP 16
[2020-01-12] MEDS: HYDROcodone/APAP 5-325MG 1 EACH TAB PO PRN ×3 (01:45→13:44)
[2020-01-12] MEDS: diphenhydrAMINE 25 MG CAP PO PRN (01:45)
[2020-01-12 07:04] LABS: Glucose,Whole Blood 123 mg/dL (75-99)
[2020-01-12] MEDS: CEPHALEXIN 250 MG CAP PO SCH ×2 (07:42→13:09)
[2020-01-12] MEDS: HEPARIN SODIUM,PORCINE 5,000 UNIT/ML 1 ML VIAL SQ SCH (07:42)
[2020-01-12] MEDS: POTAS-SOD-PHOS 278-164-250 MG 1 EACH PACKET PO SCH (07:42)
[2020-01-12] MEDS: ASPIRIN 325 MG TAB PO SCH (07:42)
[2020-01-12] MEDS: METOPROLOL TARTRATE 25 MG TAB PO SCH (07:43)
[2020-01-12] MEDS: LETROZOLE 2.5 MG TAB PO SCH (07:43)
[2020-01-12] MEDS: LISINOPRIL-HCTZ 10-12.5 MG 1 EACH TAB PO SCH (07:44)
--- NOTE | 2020-01-12 09:06 | CDI ---
Documentation Clarification Form Date: 01/12/2020 08:51:32 AM From: Kanika Weaver CCS, CCDS Admit Date: 12/31/2019 10:20:00 PM Patient Name: Alice Meraz Visit Number: [id number] Discharge Date: ATTENTION: The Clinical Documentation Specialists (CDI) and [facility] Coding Staff appreciate your assistance in clarifying documentation. Please respond to the clarification below the line at the bottom and electronically sign. The CDI & [facility] Coding staff will review the response and follow-up if needed. Please note: Queries are made part of the Legal Health Record. If you have any questions, please contact the author of this message via ITS. Dr. Elsie Mackenzie: Per the Attending Physician Progress Notes on 01/03, 01/04: "Acute subtrochanteric right femur fracture secondary to fall, status post ORIF. Acute postoperative blood loss anemia and anemia of chronic disease." Patients Admitting Diagnosis: Admitted 12/31 after falling from a chair with right femur subtrochanteric fracture. Post-Operative Diagnosis: Same & also found to have metastatic breast cancer to bones, liver & lungs per pathology of femur. Procedure performed 01/02: ORIF of right femur fracture w/IM Nailing. History/Risk Factors: Breast CA with newly found metastatic disease to bone, liver & lungs. Hypertension, Rheumatoid arthritis & a former smoker. Clinical Indicators: Presented on 12/31 to the ED as above, ORIF performed on 01/02. 12/31 Hgb: 12.0; 01/01: 10.5, : 8.8*; 01/03: 8.0* - 7.5*; 01/05: 7.2*. 12/31 Hct: 39.8; 01/01: 36.1; 01.02 36.7; : 29.7*; 01/03 26.8 - 26.0*; 01/05: 24.2* Treatment: Daily H/H, IV Dilaudid, IV Zofran, IV fluid bolus 1,000 mls @ 999 mls/hr (12/31), IV fluid 1,000 mls @ 100 (12/31), IV Cefazolin. 01/05 & 01/06: IV Ferric Na Gluconate 110 mls @ 100 mls/hr. In order to accurately reflect this patients severity of illness, please clarify if the post-operative diagnosis is: An expected post-procedural or post-surgical condition An unexpected post-procedural or post-surgical condition related to surgical care (a complication of care) An unexpected post-procedural or post-surgical condition, related to the patients underlying medical comorbidities Other, please specify ____ Unable to determine (Last Revision: February 2019) An expected post-procedural or post-surgical condition MTDD
--- NOTE | 2020-01-12 11:43 | P.DS ---
Providers Date of admission: 12/31/19 22:20 Expected date of discharge: 01/12/20 Attending physician: Javid Callaway Consults: 12/31/19 22:20 Consult Physician Routine Consulting Provider: Javid Callaway Consult Reason/Comments: [facility]clear Do you want consulting provider notified?: Yes 01/01/20 10:12 Consult Physician Routine Consulting Provider: [facility] Consult Reason/Comments: abnormal EKG, elevated trops, Hypertensive Do you want consulting provider notified?: Yes 01/03/20 11:43 Consult Physician Routine Consulting Provider: Gabriele Ibarra Consult Reason/Comments: possible neoplasm on catscan Do you want consulting provider notified?: Yes 01/04/20 05:26 Consult Physician Routine Consulting Provider: Andrea Dewitt Consult Reason/Comments: abnormal brain CT Do you want consulting provider notified?: Yes 01/05/20 15:57 Consult Physician Routine Consulting Provider: Minda Dawn Consult Reason/Comments: high trops Do you want consulting provider notified?: Yes 01/06/20 08:02 Consult Physician Routine Consulting Provider: Phuc Gillette Consult Reason/Comments: resume post op care Do you want consulting provider notified?: Already Contacted 01/06/20 14:18 Consult Physician Routine Consulting Provider: Gabino Rodriguez Consult Reason/Comments: Radiation to painful bone mets or skull lesion Do you want consulting provider notified?: Already Contacted [facility]: - Chief Complaint Right hip fracture History of presenting complaint: This is a 74-year-old patient of Dr. zamarripa. Chronic stable medical conditions include diabetes, hypertension, rheumatoid arthritis, varicose veins. For last few days patient is joints have been bothering her and affect in different joints including the hips and knees. Patient has been dizzy for about a week. Decreased appetite. For 3 days been having nausea vomiting. She was working on the computer was getting off the chair lost her balance fell down. Injuring her right hip. -right hip fracture. Denies any chest pain no palpitation. Unable to take her medications and she came in her blood pressures running high over 200 systolic. some troponin leak. Very subtle EKG changes.. No abdominal pain. No diarrhea. On January 02-underwent ORIF and IM nailing. CT chest-showed multiple pulmonary nodules. No lymphadenopathy. And suggestive breast neoplasm. Computed tomography scan brain-cerebral atrophy, osteolytic lesions in the skull.. CT angiogram of the brain was negative. Nuclear bone scan did confirm osseous metastasis. Patient working with physical therapy. Does get pain in the right hip at the same. Patient was started on Femara. Today-. Patient laying in bed. Pain is controlled. Discussed about discharge. Ready to go for the same. Also discussed with holley from oncology team. Also discussed withdrawn from social work program coordinator. Discussion and discharge planning more than 35 minutes Consultants: Dr. Jose Corrigan from radiation oncology Dr. Ibarra from oncology Dr. Gillette from orthopedic associates Dr. Redd Cavanaugh from cardiology Physical examination: VITAL SIGNS: 96.5, 67, 16, 166/72, 98% on room air GENERAL: Laying in bed, comfortable EYES: Pupils equal. Conjunctiva normal. HEENT: External appearance of nose and ears normal, oral cavity grossly normal. NECK: JVD not raised; masses not palpable. HEART: First and second heart sounds are normal; no edema. LUNGS: Respiratory rate normal; slightly decreased breath sound. ABDOMEN: Soft, nontender, liver spleen not palpable, no masses palpable. PSYCH: Alert and oriented x3; mood and affect anxious. MUSCULOSKELETAL: Evidence of OA in the hands, INVESTIGATIONS, reviewed in the clinical context: White count 12.7 hemoglobin 7.7 potassium 4.4 creatinine 0.71 Previous testing White count 14.5 hemoglobin 12 repeat 10.5 today to see 53 potassium 4.1 creatinine 0.68 Troponin I 0.043, 0.048 EKG tracing personally reviewed by me-Q waves in inferior leads Chest x-ray film-questionable infiltrate versus interstitial lung finding. Right hip x-ray-acute subtrochanteric right femur fracture 2-D echo-EF 60-65%, concentric LVH, moderate pulmonic regurgitation Iron 20, TIBC 281, iron saturation low at 7.12 CA 15-300s and increased at 494, CA 27-[address] chest abdomen pelvis-numerous bilateral pulmonary nodules, right breast mass, lymphadenopathy, mass within the inferior right hepatic lobe and some satellite density. Some intrahepatic biliary dilatation Nuclear bone scan-showing confirmation of osseous metastatic disease Assessment: -Acute subtrochanteric right femur fracture secondary to fall followed by ORIF and IM nailing -Extensive metastatic disease suspected from breast cancer extending into the bones, lungs and the liver -Rheumatoid arthritis, chronic -Obesity BMI 30.3 -Hypertensive heart disease -Moderate pulmonic regurgitation -Essential hypertension -Diabetes mellitus type 2 on oral hypoglycemic Disposition: [facility] Patient Condition at Discharge: Undetermined Plan - Discharge Summary New Discharge Prescriptions: New Letrozole [Femara] 2.5 mg PO DAILY tab Atorvastatin [Lipitor] 20 mg PO HS tab Metoprolol Tartrate [Lopressor] 75 mg PO TID tab Sennosides-Docusate Sodium [Senokot-S] 2 each PO HS tab Lisinopril-Hctz 10-12.5 mg [Zestoretic 10-12.5] 1 each PO BID tab Cephalexin [Keflex] 250 mg PO QID #12 cap Continue Ergocalciferol [Vitamin D2 (DRISDOL)] 50,000 unit PO Q7D Allopurinol [Zyloprim] 100 mg PO DAILY HYDROcodone/APAP 5-325MG [[place] 5-325] 1 tab PO Q8H #9 tab Discontinued predniSONE 10 mg PO DAILY glipiZIDE XL [Glucotrol Xl] 5 mg PO DAILY Atenolol 200 mg PO DAILY Lisinopril [Prinivil] 20 mg PO DAILY Discharge Medication List Allopurinol [Zyloprim] 100 mg PO DAILY 12/31/19 [History] Ergocalciferol [Vitamin D2 (DRISDOL)] 50,000 unit PO Q7D 12/31/19 [History] Atorvastatin [Lipitor] 20 mg PO HS tab 01/09/20 [Rx] HYDROcodone/APAP 5-325MG [[place] 5-325] 1 tab PO Q8H #9 tab 01/09/20 [Rx] Letrozole [Femara] 2.5 mg PO DAILY tab 01/09/20 [Rx] Lisinopril-Hctz 10-12.5 mg [Zestoretic 10-12.5] 1 each PO BID tab 01/09/20 [Rx] Metoprolol Tartrate [Lopressor] 75 mg PO TID tab 01/09/20 [Rx] Sennosides-Docusate Sodium [Senokot-S] 2 each PO HS tab 01/09/20 [Rx] Cephalexin [Keflex] 250 mg PO QID #12 cap 01/12/20 [Rx] Follow up Appointment(s)/Referral(s): Reji Cavanaugh MD [STAFF PHYSICIAN] - 2 Weeks Gabriele Ibarra MD [STAFF PHYSICIAN] - 01/30/20 11:15 am (this appointment is at the [facility], second floor, [facility]) Roby Zamarripa MD [Primary Care Provider] - As Needed Phuc Gillette MD [STAFF PHYSICIAN] - 3 Weeks Yimi Falk DO [STAFF PHYSICIAN] - 1-2 Days Activity/Diet/Wound Care/Special Instructions: medications from home are in the inpatient pharmacy Nonweightbearing right lower extremity with walker. Please call if patient unable to make appointment in 3 weeks. May remove the Exofin tape over incisions 2 weeks post op. Use any ointment to soften the tape prior to removal.
[2020-01-12 11:56] VITALS: BP 139/43; PULSE 64; TEMP 98.9
[2020-01-12 11:56] LABS: Glucose,Whole Blood 117 mg/dL (75-99)
--- NOTE | 2020-01-14 07:04 | CDI ---
Documentation Clarification Form Date: 01/14/20 From: Sandra Cabrales Phone: If you have a question about this query, please contact Nona Cali, Cabinetmaker Apprentice at [phone] between 8am and 5pm. Admit Date: 12/31/19 Discharge Date:01/12/20 Patient Name: Alice Meraz Visit Number: [id number] ATTENTION: The Clinical Documentation Specialists (CDI) and [facility] Coding Staff appreciate your assistance in clarifying documentation. Please respond to the clarification below the line at the bottom and electronically sign. The CDI & [facility] Coding staff will review the response and follow-up if needed. Please note: Queries are made part of the Legal Health Record. If you have any questions, please contact the author of this message via ITS. Dear Dr. Gillette Conflicting documentation has been found in the medical record: Acute subtrochanteric right femur fracture secondary to fall is documented in Dr. Callaway's discharge summary and progress notes. Right femur fracture, most consistent with pathological fracture is documented in oncology 01/05 - 01/07 progress notes. History/Risk Factors: Fall prior to admission, metastatic breast cancer found this admission Clinical Indicators: Hip pain X-Ray results: Acute subtrochanteric fracture right femur. CT scan chest, abd, pelvis: In review of the osseous structures there are numerous metastatic lytic lesions seen including the left clavicle, right humerus, left proximal femur and right sacrum. Pathology: Femoral Reamings: Metastatic carcinomal consistent with primary ductal breast origin Treatment: Right hip subtrochanteric fracture open reduction and intramedullary nailing using long Synthes IT nail. In your opinion, what is the most clinically appropriate diagnosis for this patient? Etiology of fracture: Traumatic Pathological: Neoplastic Other Other explanation of clinical findings Unable to determine (no explanation for clinical findings) Definitely pathological fracture as there was cancer found in the reamings from surgery. Reza DURHAM
--- NOTE | 2020-01-14 07:38 | CDI ---
Documentation Clarification Form Date: 01/14/20 From: Sandra Cabrales Phone: If you have a question about this query, please contact Nona Cali, Toll Test Desk Worker at [phone] between 8am and 5pm. Admit Date: 12/31/19 Discharge Date:01/12/20 Patient Name: Alice Meraz Visit Number: [id number] ATTENTION: The Clinical Documentation Specialists (CDI) and [facility] Coding Staff appreciate your assistance in clarifying documentation. Please respond to the clarification below the line at the bottom and electronically sign. The CDI & [facility] Coding staff will review the response and follow-up if needed. Please note: Queries are made part of the Legal Health Record. If you have any questions, please contact the author of this message via ITS. Dear Dr. Callaway Mental status changes was documented in your 01/03 and 01/04 progress notes and confusion is documented in your 01/03, 01/06, 01/07 and 01/09 progress notes. History/Risk Factors: Right breast cancer with metastasis to the liver, lung, axilla, perihepatic lymph nodes and bones. Clinical Indicators: Confusion Labs: WBC 13.2, Hgb/Hct 8.0/26.8, sodium 132 CT: Brain CT was negative for acute infarct, however, there are multiple osteolytic lesion with rounded soft tissue masses, which are suggestive of metastatic disease per Janay Green 01/[address]: Chest/abd/pelvis: highly suspicious for multifocal metastatic disease. Numerous pulmonary nodules are seen most compatible with metastatic disease that could be pathologically proven with biopsy. Additionally, a highly suspicious hepatic mass is present with numerous large centrally necrotic periportal lymph nodes creating mild intrahepatic biliary ductal dilation. Treatment: IV fluids, IV Dilaudid for pain control In your professional opinion, please clarify the etiology of the Altered Mental Status, if known. Delirium (specify cause): Dementia (if know, specify Type and if with/without Behavioral Disturbance) Encephalopathy (specify Type and Underlying Medical Illness) Brain metastases Other condition (please specify) Unable to determine Unable to determine MTDD
== END 2020-01-12 14:20 | DRG 481 ==
LOC: EC 20:14 → 4SSUR 22:20 → 5NMEDONC 01-06 16:36
PROVIDERS: ADMIT Hospitalist; ATTEND Hospitalist
PROC: 0QS606Z Reposition Right Upper Femur with Intramedullary Internal Fixation Device, Open Approach (ICD-10-PCS; principal; 2019-12-31)
PROC: 0QS6XZZ Reposition Right Upper Femur, External Approach (ICD-10-PCS; 2019-12-31)
DX: M84.551A Pathological fracture in neoplastic disease, right femur, initial encounter for fracture (principal); C78.7 Secondary malignant neoplasm of liver and intrahepatic bile duct; T83.511A Infection and inflammatory reaction due to indwelling urethral catheter, initial encounter; N30.00 Acute cystitis without hematuria; C77.3 Secondary and unspecified malignant neoplasm of axilla and upper limb lymph nodes; C77.2 Secondary and unspecified malignant neoplasm of intra-abdominal lymph nodes; C78.02 Secondary malignant neoplasm of left lung; C78.01 Secondary malignant neoplasm of right lung; C79.51 Secondary malignant neoplasm of bone; D62 Acute posthemorrhagic anemia; D63.8 Anemia in other chronic diseases classified elsewhere; C50.911 Malignant neoplasm of unspecified site of right female breast; I11.9 Hypertensive heart disease without heart failure; Z17.0 Estrogen receptor positive status [ER+]; D50.9 Iron deficiency anemia, unspecified; R41.0 Disorientation, unspecified; E11.9 Type 2 diabetes mellitus without complications; E66.9 Obesity, unspecified; I16.0 Hypertensive urgency; I37.1 Nonrheumatic pulmonary valve insufficiency; I48.0 Paroxysmal atrial fibrillation; I83.90 Asymptomatic varicose veins of unspecified lower extremity; M06.9 Rheumatoid arthritis, unspecified; R79.89 Other specified abnormal findings of blood chemistry; R26.9 Unspecified abnormalities of gait and mobility; Z68.30 Body mass index [BMI] 30.0-30.9, adult; Z79.52 Long term (current) use of systemic steroids; Z79.84 Long term (current) use of oral hypoglycemic drugs; Z79.899 Other long term (current) drug therapy; Z87.891 Personal history of nicotine dependence; Z88.0 Allergy status to penicillin; Z88.8 Allergy status to other drugs, medicaments and biological substances; Z91.040 Latex allergy status; Z87.440 Personal history of urinary (tract) infections; Z90.49 Acquired absence of other specified parts of digestive tract; Z80.0 Family history of malignant neoplasm of digestive organs; Z82.49 Family history of ischemic heart disease and other diseases of the circulatory system; Z81.1 Family history of alcohol abuse and dependence; W01.190A Fall on same level from slipping, tripping and stumbling with subsequent striking against furniture, initial encounter
CPT/HCPCS: 27240; 36415; 70450; 70496; 70498; 71045; 71250; 71260; 73502; 74177; 78306; 80048; 80053; 81001; 82728; 83540; 83550; 83735; 84100; 84484; 85025; 85610; 85730; 86300; 87086; 88305; 88311; 88341; 88342; 93005; 93306; 94760; 96361; 96374; 96375; 96376; 99285